=== PATIENT | female | born 1965 | race Caucasian/White ===

== ENCOUNTER 2020-11-24 12:19 | Emergency (ER) | payer MEDICAID, SELFPAY ==
[2020-11-24 12:45] VITALS: BP 117/73; PULSE 82; RESP 16; TEMP 36.9; O2SAT 97
--- NOTE | 2020-11-24 12:46 | ED_ITS ---
HPI - General Adult General Chief complaint: Psychiatric Symptoms Stated complaint: BEEHAVIORAL,NON MED COMPLIANT Time Seen by Provider: 11/24/20 12:21 Source: patient, family (Daughter) and EMS Mode of arrival: EMS Limitations: no limitations History of Present Illness HPI narrative: 55-year-old female with a past medical history of seizure disorder, anxiety, depression, hyperlipidemia, CVA with residual left-sided weakness and slurred speech, endocarditis with 2 several subsequent mitral valve replacements currently on Coumadin here after verbal altercation with family this morning. Patient tells me that she has some depression but denies any suicidal thoughts. No physical complaints. Called and spoke to the daughter who tells me that her mother moved in with her this week and after living in an apartment in [place]. They are working on transitioning over medical care here. Unfortunately, she has not been happy with the move and has been refusing to take all of her medications for the last several days. She is currently on methadone 100mg and got dosed Monday and Monday at a [facility] and [place]. This morning during the altercation the daughter witnessed her to take a pill bottle that had pink liquid in it of leftover methadone which she believes to be 100 mg and swallow it. Unfortun ately, she tells me the patient's stores her methadone in on marked pill bottles and the pill bottle was labeled with lorazepam. She tells me that there was no pills in it and there was only a pink liquid and she is sure that his methadone. She denies any expressed suicidal thoughts from her mom. Related Data Allergies Allergy/AdvReac Type Severity Reaction Status Date / Time No Known Allergies Allergy Verified 11/24/20 12:46 Review of Systems Review of Systems: Yes all other systems are reviewed and are negative Constitutional: Constitutional: Reports no additional constitutional complaints, Denies body ache(s), Denies chills, Denies fever(s), Denies headache(s) and Denies weakness Eyes: Eyes: Reports no additional eye complaints and Denies change in vision ENT: Reports system reviewed and no additional complaints, except as documented, Denies dizziness, Denies headache(s), Denies nasal congestion, Denies nasal discharge and Denies neck pain Cardiovascular: Cardiovascular: Reports no additional cardiovascular complaints, Denies chest pain, Denies leg edema and Denies dyspnea Respiratory: Respiratory: Reports no additional respiratory complaints, Denies cough and Denies dyspnea Gastrointestinal: Gastrointestinal: Reports no additional gastrointestinal complaints, Denies abdominal pain, Denies diarrhea, Denies nausea and Denies vomiting Genitourinary: Genitourinary: Reports no additional female genitourinary complaints and Denies urinary incontinence Musculoskeletal: Musculoskeletal: Reports no additional musculoskeletal complaints, Denies back pain, Denies arthralgias, Denies joint swelling, Denies neck pain, Denies numbness and Denies tingling Integumentary/Breasts: Skin/Breast: Reports system reviewed and no additional complaints, except as docu and Denies rash Neurologic: Reports system reviewed and no additional complaints, except as documented, Denies dizziness, Denies headache(s), Denies numbness, Denies tingling and Denies weakness Psychiatric: Psychiatric: Denies anxiety, Reports depression, Denies visual hallucinations, Denies hallucinations, Denies homicidal ideation and Denies suicidal ideation PMFSH Past Medical History Attestation statement: The following information was validated with the patient. Source: old records reviewed and nursing notes reviewed Medical History (Updated 11/24/20 @ 16:23 by Berta Griffith NP) Anxiety CVA (cerebral vascular accident) Depression Endocarditis High cholesterol Opioid use disorder Seizure Surgical History Mitral valve replaced Social History Social History Advance Directives: No Advance Directives Information Provided: No Patient : No Physical Exam Vital Signs: Vital Signs: Last Vital Signs Temp 97.8 F 11/24/20 13:41 Pulse 79 11/24/20 13:41 Resp 18 11/24/20 13:41 BP 117/90 H 11/24/20 13:41 Pulse Ox 95 11/24/20 13:41 Body Mass Index 24.0 Const: Other: Tearful, crying General: alert and awake Orientation/consciousness: patient oriented x3 Limitations: no limitations HENMT: Head: Yes normal to inspection Ears: hearing grossly normal bilaterally and TM's normal bilaterally General nose exam: Normal external nose present Face and sinus: Yes normal facial exam Mouth: Normal oral and palatal mucosa present Throat: Yes posterior oropharynx normal and Yes tonsils normal Eyes: General: appearance normal, both eyes and all related structures Neck: Neck: Yes normal visual inspection, Yes full ROM and Yes no lymphadenopathy Chest: Other: Chest deformity noted to the central chest with surgical scarring Chest palpation & inspection: normal inspection of the chest Resp: Effort & Inspection: normal respiratory effort Auscultation: clear to auscultation bilaterally Cardio: Rate: regular rate Rhythm: regular rhythm Peripheral pulses: Peripheral pulses 2+ throughout GI: Inspection: Yes normal to inspection Palpation (GI): Soft to palpation and nontender Auscultation: normal bowel sounds Back/Spine/Pelvis: Thoracic/Lumbar Spine: thoracic and lumbar spine normal to inspection Skin: General skin exam: no rashes or lesions noted Neuro: Other: Left-sided weakness at baseline. Slurred speech at baseline. General: patient oriented x3 Extrem: General: Yes normal to inspection, Yes no pedal edema and Yes no calf tenderness Psych: Other: Anxious, rambling, Course Course Course Narrative: 55-year-old female here after a verbal altercation with family. Concerned that patient is not taking her medications, labile moods, depressed. Patient has no explicit suicidal thoughts. Question ingestion of methadone this morning although was in a bottle marked lorazepam. Both family and patient tell me it was a pink liquid 100 mg of methadone and that the patient often places her methadone in a different containers. On arrival patient was alert and oriented. She has slurred speech and left- sided weakness at baseline from a stroke. She is very tearful, crying after the verbal altercation with her daughter this morning. Difficult to obtain much history from her so most of the history was obtained from the daughter Nery Mcguire [phone] with the patient's consent. Will check labs, EKG, drug screen and toxicology reports. Patient will need a care team evaluation 1430-Seen by Care team. No need for inpatient psych as patient is not suicidal. Will involve CM to collect collateral information and determine if additional needs are required. 1445-Refusing all care including labs, urine testing and EKG. Patient is alert and oriented x3 and not on a section 12 so at this point cannot force patient to have these tests done. 1645-Agreed to labs. lab show subtherapeutic INR. Otherwise unremarkable. Refused to provide urine sample and EKG. Case management spoke to family and offered services to assist medication management and methadone. However, this was declined by the daughter and the patient. Patient up and ambulatory independently to the bathroom. Alert and oriented x3. Informed patient of test results and plan for discharge home. Called and informed daughter with patient's permission and she was very tearful and crying although understood that we have no reason to keep her mom here in the emergency department. I did inform the patient of this and she tells me this is her home and she has a very difficult relationship with her daughter. She desires to be discharged. Medical Decision Making Medical Records Medical records reviewed: Yes I reviewed the patient's medical records. Lab Data Lab results reviewed: Yes I reviewed the patient's lab results. Result diagrams: 11/24/20 15:10 11/24/20 15:10 Labs: Lab Results 11/24/20 11/24/20 11/24/20 Range/Units 15:10 15:10 15:10 WBC 3.3 L (4.8-10.8) X10*3/uL RBC 4.69 (4.20-5.50) X10*6/uL Hgb 13.5 (12.0-16.0) g/dl Hct 41.3 (37-47) % MCV 88.1 (80-98) fL MCH 28.8 (27.0-33.0) pg MCHC 32.7 (31.0-35.0) g/dl RDW 13.9 (11.0-16.0) % Plt Count 172 (160-400) X10*3/uL MPV 10.9 (9.4-12.3) fL Immature Gran % (Auto) 0.3 (0.0-0.4) % Neut % (Auto) 55.1 (45-73) % Lymph % (Auto) 32.9 (20-40) % [place] % (Auto) 10.2 (2-11) % Eos % (Auto) 1.2 (0-4) % Baso % (Auto) 0.3 (0-2) % Lymph # (Auto) 1.1 L (1.2-4.9) X10*3/uL [place] # (Auto) 0.3 (0.1-1.2) X10*3/uL Eos # (Auto) 0.0 (0.0-0.4) X10*3/uL Baso # (Auto) 0.0 (0.0-0.2) X10*3/uL Abs Immat Gran (auto) 0.01 (0.00-0.03) X10*3/uL Absolute Neuts (auto) 1.8 L (2.0-8.3) X10*3/uL Absolute Nucleated RBC 0.000 (0.0-0.012) X10*3/uL Nucleated RBC % (auto) 0.0 (0.0-0.2) /100WBC PT 16.5 H (10.8-13.0) SEC INR 1.4 H (0.9-1.1) Sodium 142 (135-145) mmol/L Potassium 3.7 (3.3-5.1) mmol/L Chloride 107 (96-108) mmol/L Carbon Dioxide 28 (22-29) mmol/L Anion Gap 11 L (12-20) BUN 15 (9-16) mg/dL Creatinine 0.86 (0.5-1.4) mg/dL Estim Creat Clear Calc 65.3 Estimated GFR > 60 Random Glucose 72 (60-115) mg/dL Calcium 9.9 (8.4-10.2) mg/dL Total Bilirubin 0.7 (0.0-1.0) mg/dL Direct Bilirubin 0.2 (0.0-0.5) mg/dL AST 25 (5-31) U/L ALT 17 (0-31) U/L Alkaline Phosphatase 133 H (39-117) U/L Total Protein 8.1 H (6.5-8.0) g/dL Albumin 4.5 (3.5-5.0) g/dL Salicylates < 5.0 L (15-30) mg/dL Acetaminophen < 1 (<30) mcg/mL Ethyl Alcohol mg/dL 11/24/20 Range/Units 15:10 WBC (4.8-10.8) X10*3/uL RBC (4.20-5.50) X10*6/uL Hgb (12.0-16.0) g/dl Hct (37-47) % MCV (80-98) fL MCH (27.0-33.0) pg MCHC (31.0-35.0) g/dl RDW (11.0-16.0) % Plt Count (160-400) X10*3/uL MPV (9.4-12.3) fL Immature Gran % (Auto) (0.0-0.4) % Neut % (Auto) (45-73) % Lymph % (Auto) (20-40) % [place] % (Auto) (2-11) % Eos % (Auto) (0-4) % Baso % (Auto) (0-2) % Lymph # (Auto) (1.2-4.9) X10*3/uL [place] # (Auto) (0.1-1.2) X10*3/uL Eos # (Auto) (0.0-0.4) X10*3/uL Baso # (Auto) (0.0-0.2) X10*3/uL Abs Immat Gran (auto) (0.00-0.03) X10*3/uL Absolute Neuts (auto) (2.0-8.3) X10*3/uL Absolute Nucleated RBC (0.0-0.012) X10*3/uL Nucleated RBC % (auto) (0.0-0.2) /100WBC PT (10.8-13.0) SEC INR (0.9-1.1) Sodium (135-145) mmol/L Potassium (3.3-5.1) mmol/L Chloride (96-108) mmol/L Carbon Dioxide (22-29) mmol/L Anion Gap (12-20) BUN (9-16) mg/dL Creatinine (0.5-1.4) mg/dL Estim Creat Clear Calc Estimated GFR Random Glucose (60-115) mg/dL Calcium (8.4-10.2) mg/dL Total Bilirubin (0.0-1.0) mg/dL Direct Bilirubin (0.0-0.5) mg/dL AST (5-31) U/L ALT (0-31) U/L Alkaline Phosphatase (39-117) U/L Total Protein (6.5-8.0) g/dL Albumin (3.5-5.0) g/dL Salicylates (15-30) mg/dL Acetaminophen (<30) mcg/mL Ethyl Alcohol < 10 mg/dL Discharge Plan Discharge Clinical Impression: Adjustment disorder Qualifiers: Adjustment disorder type: unspecified type Qualified Code(s): F43.20 - Adjustment disorder, unspecified Patient Disposition: Home, Self-Care Instructions: Stress (ED) Additional Instructions: Your INR today was 1.4 You should be taking your coumadin in addition to all your labs but this is up to you. You have been seen by a manager social and manager of case management while you were here Referrals: Doug Watt MD [Primary Care Provider] - 2 days Interventions: ED Discharge Assessment Last Done: 11/24/20 18:33 Discharge Date/Time: 11/24/20 18:33
[2020-11-24 12:52] VITALS: BP 117/73; PULSE 82; RESP 16; TEMP 36.9; O2SAT 96; BMI 24.0
[2020-11-24 13:41] VITALS: BP 117/90; PULSE 79; RESP 18; TEMP 36.6; O2SAT 95
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
--- NOTE | 2020-11-24 15:06 | PC.NURSE ---
PT INITIALLY REFUSING BLOODOWRK. NOW AGREEBLE. DIFFICULT STICK. TECHS ATTEMPTING BLOODDRAW.
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
[2020-11-24 15:16] LABS: MANUAL DIFF FLAG NO
[2020-11-24 15:20] LABS: Basophils Percent Auto 0.3 % (0-2); Eosinophils Percent Auto 1.2 % (0-4); Hematocrit 41.3 % (37-47); Hemoglobin 13.5 g/dl (12.0-16.0); Imm Gran Abs Auto 0.01 X10*3/uL (0.00-0.03); Imm Gran Pct Auto 0.3 % (0.0-0.4); Lymphocytes Absolute Auto 1.1 X10*3/uL (1.2-4.9); Lymphocytes Percent Auto 32.9 % (20-40); Mean Corpuscular HGB Conc 32.7 g/dl (31.0-35.0); Mean Corpuscular Hemoglobin 28.8 pg (27.0-33.0); Mean Corpuscular Volume 88.1 fL (80-98); Mean Platelet Volume 10.9 fL (9.4-12.3); Monocytes Absolute Auto 0.3 X10*3/uL (0.1-1.2); Monocytes Percent Auto 10.2 % (2-11); Neutrophils Absolute Auto 1.8 X10*3/uL (2.0-8.3); Neutrophils Percent Auto 55.1 % (45-73); Platelet Count 172 X10*3/uL (160-400); Red Blood Count 4.69 X10*6/uL (4.20-5.50); Red Cell Distribution Width 13.9 % (11.0-16.0); White Blood Count 3.3 X10*3/uL (4.8-10.8)
[2020-11-24 15:23] LABS: INTERNATIONAL NORM RATIO 1.4 (0.9-1.1); Prothrombin Time 16.5 SEC (10.8-13.0)
--- NOTE | 2020-11-24 15:32 | PC.NURSE ---
PT READING IN HALLWAY STRETCHER, IN NAD AT THIS TIME, READING A BOOK. CALM & COOPERATIVE, SITTER AT BEDSIDE. DENIES SI/HI TO THIS OPHTHALMIC SURGEON. HAS BEEN EVALUATED BY CARE TEAM.
[2020-11-24 15:41] LABS: Ethanol < 10 mg/dL
[2020-11-24 15:44] LABS: Acetaminophen LAB < 1 mcg/mL (<30); Alanine Aminotransferase 17 U/L (0-31); Albumin Level 4.5 g/dL (3.5-5.0); Alkaline Phosphatase 133 U/L (39-117); Anion Gap 11 (12-20); Aspartate Amino Transferase 25 U/L (5-31); Bilirubin Direct 0.2 mg/dL (0.0-0.5); Bilirubin Total 0.7 mg/dL (0.0-1.0); Blood Urea Nitrogen 15 mg/dL (9-16); Calcium 9.9 mg/dL (8.4-10.2); Carbon Dioxide 28 mmol/L (22-29); Chloride 107 mmol/L (96-108); Creatinine Clr Calc Pharmacy 65.3; Estimated Glomerular Filt Rate > 60; Glucose Random 72 mg/dL (60-115); Potassium 3.7 mmol/L (3.3-5.1); Salicylate < 5.0 mg/dL (15-30); Sodium 142 mmol/L (135-145); Total Protein 8.1 g/dL (6.5-8.0)
--- NOTE | 2020-11-24 16:36 | MHC.CM.ED ---
Per Berta ZHANG, pt is ready for discharge. Berta called daughter to discuss d/c plan. Chair van transportation arranged. Pt aware. Pt A&Ox3. Verbalized no concerns about discharge plan. CM to follow for d/c needs.
--- NOTE | 2020-11-24 18:26 | MHC.CM.ED ---
CM spoke with pt. Pt states that she believes her daughter will let her into the apartment. Pt tells CM that she gives her daughter money for rent. CM gave pt listing of primary care providers and specialists at [facility] [place] [place]. Encouraged pt to call for PCP appointment. Pt admits to her and daughter not getting along, but feels safe to return. Ambulance arrived for transport. Concerned if daughter aware that pt is returning. Explained to CM that if daughter refuses to allow pt into apartment, they will return her to the ED. Explained to ambulance crew that LEATHA Hampton spoke with patients daughter and that she is aware that her mother will return home. CM received a call from Amarilis Nursing Night Supervisor regarding pt daughter calling her. Full report given to nursing mold shop supervisor and to Ariana Nickerson. Pt discharged to return home. CM will follow for d/c needs.
== END 2020-11-24 18:33 | disposition home or self-care (01) ==
PROVIDERS: Nurse Practitioner Family; Emergency Provider Emergency Medicine; PCP Internal Medicine
DX: F43.20 Adjustment disorder, unspecified (principal); F41.9 Anxiety disorder, unspecified; Z86.73 Personal history of transient ischemic attack (TIA), and cerebral infarction without residual deficits; F32.9 Major depressive disorder, single episode, unspecified; F11.20 Opioid dependence, uncomplicated
CPT/HCPCS: 36415; 80048; 80076; 80143; 80179; 82077; 85025; 85610; 99284; 99285

== ENCOUNTER 2020-11-24 23:29 | Emergency (ER) | payer MEDICAID, SELFPAY ==
[2020-11-24 23:58] VITALS: BP 128/82; BP 99/61; PULSE 107; PULSE 111; RESP 16; TEMP 37; O2SAT 95; O2SAT 96; BMI 30.9
--- NOTE | 2020-11-25 01:08 | ED_ITS ---
HPI - General Adult General Chief complaint: General Medical Stated complaint: withdrawls Time Seen by Provider: 11/25/20 01:08 Source: patient Mode of arrival: EMS History of Present Illness HPI narrative: THIS IS A 55-YEAR-OLD FEMALE WHO WAS SEEN EARLIER IN THE ER AND DISCHARGED AND NOW STATES THAT SHE IS IN WITHDRAWAL BUT WAS NOT TAKING HER MEDICATIONS. SHE INITIALLY STATED SHE DID NOT RECEIVE HER METHADONE, BUT THEN SAID THAT SHE TOOK METHADONE WELL HER XANAX PRIOR TO COMING IN. PATIENT THEN ENDORSES THAT SHE ATE TAKING HIM ORTHOPEDIC SHOE FITTER AND THEN BECAME NAUSEOUS AND WAS VOMITING. Related Data Allergies Allergy/AdvReac Type Severity Reaction Status Date / Time No Known Allergies Allergy Verified 11/24/20 12:46 Review of Systems Review of Systems: Pertinent positives and negatives as stated in HPI 10 point review of systems is otherwise negative. PMFSH Past Medical History Source: nursing notes reviewed Medical History Anxiety CVA (cerebral vascular accident) Depression Endocarditis High cholesterol Opioid use disorder Seizure Surgical History Mitral valve replaced Social History Social History Alcohol intake: unknown Patient Tobacco Use Status: Former Tobacco user Use of substances other than those prescribed or required for medical reasons: Yes Substance Use Type: Heroin Any prior treatment program specific to substance use: Yes Advance Directives: No Advance Directives Information Provided: No Patient : No Physical Exam Vital Signs: Vital Signs: Last Vital Signs Temp 98.6 F 11/24/20 23:58 Pulse 107 H 11/24/20 23:58 Resp 16 11/24/20 23:58 BP 99/61 11/24/20 23:58 Pulse Ox 96 11/24/20 23:58 Body Mass Index 30.9 VITAL SIGNS: Reviewed. GENERAL: Well developed, well nourished, in no acute distress. HEAD: Normocephalic/atraumatic EYES: PERRLA, EOMI OROPHARYNX: no oral lesions noted, posterior pharynx clear dry mucosa NECK: Supple, no adenopathy LUNGS: Normal breath sounds. No adventitious sounds or accessory muscle use. SpO2<96> CARDIOVASCULAR: Regular rate and rhythm without noted murmurs ABDOMEN: Soft, non-tender, non-distended with bowel sounds. MUSCULOSKELETAL: No tenderness, deformities, or effusions noted on gross inspection. EXTREMITIES: No cyanosis, clubbing or edema. SKIN: Inspection of the skin reveals no rashes, ulcerations, jaundice, pallor, or petechiae. NEUROLOGIC: Drowsy and oriented x 4. Strength and sensation to light touch were grossly intact x 4. Course Course Course Narrative: This is a 55-year-old female with history and clinical presentation consistent with methadone/Xanax use. Patient is refusing all labs and interventions and is now tolerating food and water without difficulty. She will be discharged home in stable condition. Discharge Plan Discharge Clinical Impression: Food poisoning Patient Disposition: Home, Self-Care Instructions: Food Poisoning (ED) Additional Instructions: Resume all home medications as prescribed. Return for acute worsening of symptoms. Referrals: Doug Watt MD [Primary Care Provider] - 2 days
[2020-11-25 02:00] VITALS: BP 99/61; PULSE 107; RESP 16; O2SAT 96
[2020-11-25] MEDS: 0.9 % Sodium Chloride 1,000 ML 999 ML IV (02:50)
[2020-11-25 04:00] VITALS: BP 105/68; PULSE 103; RESP 16; O2SAT 96
[2020-11-25 06:00] VITALS: BP 98/56; PULSE 75; RESP 15; O2SAT 96
--- NOTE | 2020-11-25 08:44 | PC.NURSE ---
Patient leaving with [facility] going home. Pt is alert and in no distress. No vomiting since arrival in ER
== END 2020-11-25 08:45 | disposition left against medical advice (07) ==
PROVIDERS: Emergency Provider Student in an Organized Health Care Education/Training Program; PCP Internal Medicine
DX: A05.9 Bacterial foodborne intoxication, unspecified (principal); F11.20 Opioid dependence, uncomplicated; Z86.73 Personal history of transient ischemic attack (TIA), and cerebral infarction without residual deficits
CPT/HCPCS: 96360; 96361; 99284

== ENCOUNTER 2020-12-24 12:25 | Outpatient (REF) | payer MEDICAID, SELFPAY ==
[2020-12-24 13:45] LABS: INTERNATIONAL NORM RATIO 2.2 (0.9-1.1); Prothrombin Time 25.9 SEC (9.9-13.0)
== END 2020-12-24 12:26 | disposition home or self-care (01) ==
LOC: HO.LAB 12:25
PROVIDERS: PCP Internal Medicine; Visit Provider Nurse Practitioner Adult Health
DX: Z98.890 Other specified postprocedural states (principal); Z79.01 Long term (current) use of anticoagulants
CPT/HCPCS: 36415; 85610

== ENCOUNTER 2021-03-20 16:11 | Inpatient (IN) | payer MEDICAID, SELFPAY ==
--- NOTE | 2021-03-20 | ECG_ITS ---
Test Reason : SEIZURE' Blood Pressure : / mmHG Vent. Rate : 098 BPM Atrial Rate : 098 BPM P-R Int : 150 ms QRS Dur : 094 ms QT Int : 384 ms P-R-T Axes : 044 -11 000 degrees QTc Int : 490 ms Normal sinus rhythm Incomplete right bundle branch block Nonspecific ST abnormality Prolonged QT Abnormal ECG No previous ECGs available Referred By: Generic ED Physician Electronically Signed By:CALLIE PETERSON
--- NOTE | ~2021-03-20 | MR_ITS ---
MRI OF THE BRAIN WITHOUT IV CONTRAST INDICATION: New onset seizures. COMPARISON: Head CT 03/21/2021. TECHNIQUE: Multiplanar multisequence MR imaging of the brain was obtained without IV contrast. FINDINGS: There is no hydrocephalus, extra-axial surface collection, or herniation. There is chronic encephalomalacia and gliosis within the right frontoparietal lobe and there is a chronic infarct within the right occipital lobe. No signal abnormality within the mesial temporal lobes. The major flow voids at the skull base are preserved. There is no acute infarct on diffusion-weighted imaging. There is no intracranial hemorrhage on the gradient recalled echo acquisition. The midline structures are normal. The cerebellar tonsils are normally positioned. The cerebellum and brainstem are normal. The craniocervical junction is normal. Osseous marrow signal intensity is homogenous. The visualized soft tissues are unremarkable. MR/MR head/brain wo con IMPRESSION: - There are no acute intracranial findings. No acute infarcts. - There is chronic encephalomalacia and gliosis within the right frontoparietal lobe and there is a chronic infarct within the right occipital lobe.
--- NOTE | ~2021-03-20 | CT_ITS ---
EXAMINATION: NONCONTRAST HEAD CT NONCONTRAST CERVICAL SPINE CT INDICATION INFORMATION: Altered mental status. Question fracture. COMPARISON: 03/20/2021 TECHNIQUE: Separate noncontrast CT examinations of the head and cervical spine were performed. Coronal and sagittal images were created for each examination at the technologist workstation. This CT examination was performed using dose optimization techniques as appropriate, variously including the following: *Automated exposure control *Adjustment of mA and/or kV according to patient size (this includes techniques or standardized protocols for targeted exams where dose is matched to indication/reason for exam; i.e. extremities or head) *Use of iterative reconstruction technique DLP: 1226 mGy-cm FINDINGS: Head: Chronic encephalomalacia of the right MCA territory is again noted. There is no evidence of acute intracranial hemorrhage or territorial infarction. No abnormal mass effect or midline shift is seen. Armando to white matter differentiation is otherwise well preserved. No extra-axial fluid collections are identified. No hydrocephalus. No significant volume loss. No acute osseous or soft tissue abnormality. The mastoid air cells and visualized portions of the paranasal sinuses are well aerated. Cervical spine: There is anatomic alignment of the vertebral bodies and posterior elements. The atlantoaxial and atlantooccipital articulations are intact. Vertebral body heights are maintained. There is multilevel intervertebral disc space narrowing with endplate osteophyte formation and facet arthropathy. No evidence of acute fracture. No prevertebral soft tissue swelling. Visualized portions of the lung apices are unremarkable. The thyroid gland is somewhat heterogeneous. CT/CT cervical spine wo con IMPRESSION: 1. No acute intracranial finding. No change from recent prior. 2. No acute fracture or malalignment of the cervical spine. Mild degenerative change.
--- NOTE | ~2021-03-20 | CT_ITS ---
EXAMINATION: CT CHEST WITHOUT CONTRAST CT ABDOMEN AND PELVIS WITHOUT CONTRAST CLINICAL INFORMATION: Cough. Abdominal pain. COMPARISON: Chest radiograph from 03/20/2021 TECHNIQUE: Multidetector volumetric imaging was performed through the chest, abdomen and pelvis without contrast. Sagittal and coronal reformatted images were obtained on the technologist's workstation. Axial MIP volume rendering provided. This CT examination was performed using dose optimization techniques as appropriate, variously including the following: *Automated exposure control *Adjustment of mA and/or kV according to patient size (this includes techniques or standardized protocols for targeted exams where dose is matched to indication/reason for exam; i.e. extremities or head) *Use of iterative reconstruction technique DLP: 1372 mGy-cm. FINDINGS: CHEST: Lungs: The central airways are patent. Minimal groundglass opacity in the lower lungs bilaterally. No pleural effusion or pneumothorax. No dense consolidation. Mediastinum: The heart is prominent. Cardiac valvular hardware. There is no pericardial effusion. Central vascular structures are unremarkable. No hilar or mediastinal lymphadenopathy. Chest Wall/Axilla: No lymphadenopathy. No chest wall mass. ABDOMEN/PELVIS: Motion limits evaluation. Liver, Gallbladder, Biliary Tree: The liver is normal in size, shape, and attenuation. No focal hepatic lesion or intrahepatic biliary ductal dilatation is present. The gallbladder is normally distended with no evidence of radiopaque gallstones, gallbladder wall thickening, or pericholecystic inflammatory changes. The common bile duct appears prominent measuring 0.8 cm. No ductal filling defects seen. Pancreas: Unremarkable. Spleen: Unremarkable. Adrenal Glands: Unremarkable. Kidneys and Ureters: The kidneys are normal in size, shape, and attenuation. No hydronephrosis, hydroureter or calculi seen. No perinephric stranding. Bladder: Unremarkable. Gastrointestinal Tract: The stomach and small bowel appear unremarkable. No dilated loops of bowel or evidence of obstruction. No diverticulosis. No colonic wall thickening or adjacent inflammatory changes. No free air or free fluid. The appendix is unremarkable. Abdominal Wall: There is a fat-containing ventral abdominal wall hernia superiorly. Abdominal wall defect measures 3.9 cm transverse by 6.5 cm CC. Lymphovascular Structures: Lymph nodes: Normal. Vascular: Normal caliber aorta with mild atherosclerotic calcification. Retroaortic left renal vein. Pelvic Viscera: The uterus and adnexa are unremarkable. OSSEOUS STRUCTURES: No acute or suspicious osseous abnormality. Degenerative changes noted throughout the spine. Mild degenerative changes in the hips. CT/CT abdomen pelvis wo con IMPRESSION: 1. Groundglass opacities noted at both lung bases could be infectious or inflammatory. No dense consolidation. 2. Prominent appearance of the common bile duct without ductal filling defect. No inflammatory changes of the abdomen or pelvis. 3. Prominent fat-containing ventral abdominal wall hernia.
--- NOTE | ~2021-03-20 | CT_ITS ---
EXAMINATION: CT OF THE HEAD WITHOUT CONTRAST CLINICAL INFORMATION: Trauma assess for bleed. COMPARISON: None. This CT examination was performed using dose optimization techniques as appropriate, variously including the following: *Automated exposure control *Adjustment of mA and/or kV according to patient size (this includes techniques or standardized protocols for targeted exams where dose is matched to indication/reason for exam; i.e. extremities or head) *Use of iterative reconstruction technique DLP: 770 mGy-cm TECHNIQUE: Noncontrast CT scan of the head was obtained from the base of the skull to the vertex. FINDINGS: Cephalization of favoring old ischemic insult right perisylvian location. There is no evidence for any findings acute findings. The ventricles and cisterns are normal in size, shape and configuration. There are no extra-axial surface collections or evidence of hemorrhage. Midline structures are central. The anaya/white differentiation is maintained. The orbits appear normal bilaterally. The paranasal sinuses are clear. No fractures are seen. CT/CT head/brain wo con IMPRESSION: No acute intracranial abnormality. Chest one view: HISTORY: Trauma. Heart and mediastinal normal. No mediastinal widening parenchymal disease or pleural abnormality. No ectopic air. No gross rib fracture. IMPRESSION: No acute chest pathology.
[2021-03-20 16:22] VITALS: BP 122/81; BP 134/78; PULSE 81; PULSE 97; RESP 13; TEMP 36.9; O2SAT 94; O2SAT 96; BMI 31.7
--- NOTE | 2021-03-20 16:35 | PC.NURSE ---
[facility] [phone]
--- NOTE | 2021-03-20 16:41 | PC.NURSE ---
spoke with pts daughter. she reported whatever happened was unwitnessed but that the pt became disoriented, confused, her pupils dilated and she was unable to follow directions . 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 daughter is worried her mom is also sick with mold toxicity and would like her tested for that. reports they just moved and have been unable to get pts INR tested in over 2 weeks as pt is on Coumadin. daughter poor historian and unable to provide significant information regarding pts medical hx and medications.
--- NOTE | 2021-03-20 16:46 | ED.SEIZURE ---
HPI - Seizure General Chief Complaint: Seizure Stated Complaint: seizure Time Seen by Provider: 03/20/21 16:44 History of Present Illness HPI Narrative: Patient is 56 years old with a history of seizures. History of polysubstance abuse. History of endocarditis status post mechanical valve replacement. Status post complication. Patient had the repeat valve replacement many years ago currently not using IV drugs. Has a history of seizures. Family report a possible seizure episode. She is on Coumadin. There was positive postictal state patient's eye rolled back. Subsequently recover nicely. No coughing or congestion or upper respiratory symptoms. No diaphoresis. Patient is from home. Patient denies having any chest pain. Denies having any new focal weakness. Patient unsure if she hit her head. Has no pain. Denies any tongue bite. Denies any urinary incontinence. MD complaint: seizure Related Data Allergies Allergy/AdvReac Type Severity Reaction Status Date / Time No Known Allergies Allergy Verified 11/24/20 12:46 Review of Systems Review of Systems: No fever no chills no chest pain or shortness of breath No diaphoresis All systems reviewed otherwise negative [facility] Past Medical History Medical History Anxiety CVA (cerebral vascular accident) Depression Endocarditis High cholesterol Opioid use disorder Seizure Surgical History Mitral valve replaced Social History Social History Alcohol intake: never Patient Tobacco Use Status: Current someday Tobacco user Use of substances other than those prescribed or required for medical reasons: No Substance Use Type: Heroin Advance Directives: No Advance Directives Information Provided: No Physical Exam Vital Signs: Vital Signs: Last Vital Signs Temp 98.5 F 03/20/21 17:24 Pulse 75 03/20/21 19:17 Resp 13 03/20/21 19:17 BP 106/70 03/20/21 17:24 Pulse Ox 98 03/20/21 19:17 Body Mass Index 31.7 Appearance: Alert. Oriented X3. No acute distress. Eyes: Pupils equal, round and reactive to light. ENT: Pharynx normal. Neck: Normal inspection. Neck supple. No lymph nodes noted. No crepitus CVS: Normal heart rate and rhythm. Pulses normal. Normal S1 and S2 Respiratory: No respiratory distress. Breath sounds normal. No Wheezing. No rales Abdomen: Soft and nontender. No rigidity. No distention. good BS x4 Skin: Skin warm and dry. Normal skin color. Normal skin turgor. Extremities: No lower extremity edema. Neurovascular intact to all extremities. No Lacerations. No Rash Neuro: Oriented X 3. No motor deficit. No sensory deficit. Moving all extermities. No slurred speech MDM - Seizure MDM Narrative Medical decision making narrative: Patient's symptoms likely consistent with breakthrough seizure. Her electrolytes are unremarkable. CT scan of the head showed no evidence of bleeding. No fracture. Patient's x-ray showed no pneumonia pneumothorax. Will discharge patient home as patient most likely has a breakthrough seizure. Her INR is elevated at 2.9. This is therapeutic as patient has a mechanical heart valve. Patient's EKG showed a sinus pattern heart rate is 100 DE QRS QT within normal limits is no acute ST segment elevation. Currently in stable condition with discharge home. The frequency of seizure has not improved increased. Patient is compliant with medication. Will discharge patient home. Differential Diagnosis Differential diagnosis: Likely generalized seizure Medical Records Attestation: I reviewed the patient's medical records. Lab Data Attestation: I reviewed the patient's lab results. Result diagrams: 03/20/21 17:13 03/20/21 17:53 Labs: Lab Results 03/20/21 03/20/21 03/20/21 Range/Units 17:02 17:06 17:13 WBC 4.3 L (4.8-10.8) X10*3/uL RBC 4.70 (4.20-5.50) X10*6/uL Hgb 13.8 (12.0-16.0) g/dl Hct 41.2 (37-47) % MCV 87.7 (80-98) fL MCH 29.4 (27.0-33.0) pg MCHC 33.5 (31.0-35.0) g/dl RDW 14.7 (11.0-16.0) % Plt Count 214 (160-400) X10*3/uL MPV 10.3 (9.4-12.3) fL Immature Gran % (Auto) 0.2 (0.0-0.4) % Neut % (Auto) 75.6 H (45-73) % Lymph % (Auto) 16.4 L (20-40) % Hickory % (Auto) 6.7 (2-11) % Eos % (Auto) 0.9 (0-4) % Baso % (Auto) 0.2 (0-2) % Lymph # (Auto) 0.7 L (1.2-4.9) X10*3/uL Hick[place] # (Auto) 0.3 (0.1-1.2) X10*3/uL Eos # (Auto) 0.0 (0.0-0.4) X10*3/uL Baso # (Auto) 0.0 (0.0-0.2) X10*3/uL Abs Immat Gran (auto) 0.01 (0.00-0.03) X10*3/uL Absolute Neuts (auto) 3.3 (2.0-8.3) X10*3/uL Absolute Nucleated RBC 0.000 (0.0-0.012) X10*3/uL Nucleated RBC % (auto) 0.0 (0.0-0.2) /100WBC PT (9.9-13.0) SEC INR (0.9-1.1) Sodium (135-145) mmol/L Potassium (3.3-5.1) mmol/L Chloride (96-108) mmol/L Carbon Dioxide (22-29) mmol/L Anion Gap (12-20) BUN (9-16) mg/dL Creatinine (0.5-1.4) mg/dL Estim Creat Clear Calc Estimated GFR POC Glucose 99 (60-115) mg/dL Random Glucose (60-115) mg/dL Calcium (8.4-10.2) mg/dL COVID-19 (CLARITZA) Negative (Negative) COVID-19 Clin Com See Note 03/20/21 03/20/21 Range/Units 17:13 17:53 WBC (4.8-10.8) X10*3/uL RBC (4.20-5.50) X10*6/uL Hgb (12.0-16.0) g/dl Hct (37-47) % MCV (80-98) fL MCH (27.0-33.0) pg MCHC (31.0-35.0) g/dl RDW (11.0-16.0) % Plt Count (160-400) X10*3/uL MPV (9.4-12.3) fL Immature Gran % (Auto) (0.0-0.4) % Neut % (Auto) (45-73) % Lymph % (Auto) (20-40) % Hickory % (Auto) (2-11) % Eos % (Auto) (0-4) % Baso % (Auto) (0-2) % Lymph # (Auto) (1.2-4.9) X10*3/uL Hick[place] # (Auto) (0.1-1.2) X10*3/uL Eos # (Auto) (0.0-0.4) X10*3/uL Baso # (Auto) (0.0-0.2) X10*3/uL Abs Immat Gran (auto) (0.00-0.03) X10*3/uL Absolute Neuts (auto) (2.0-8.3) X10*3/uL Absolute Nucleated RBC (0.0-0.012) X10*3/uL Nucleated RBC % (auto) (0.0-0.2) /100WBC PT 33.2 H D (9.9-13.0) SEC INR 2.9 H (0.9-1.1) Sodium 142 (135-145) mmol/L Potassium 4.5 D (3.3-5.1) mmol/L Chloride 109 H (96-108) mmol/L Carbon Dioxide 25 (22-29) mmol/L Anion Gap 13 (12-20) BUN 20 H (9-16) mg/dL Creatinine 0.91 (0.5-1.4) mg/dL Estim Creat Clear Calc 74.0 Estimated GFR > 60 POC Glucose (60-115) mg/dL Random Glucose 96 (60-115) mg/dL Calcium 9.1 D (8.4-10.2) mg/dL COVID-19 (CLARITZA) (Negative) COVID-19 Clin Com Discharge Plan Discharge Clinical Impression: Epileptic seizure Patient Disposition: Home, Self-Care Instructions: Epilepsy (ED) Referrals: Physician,Nonstaff [Primary Care Provider] - 2 days (Please follow-up with your neurologist on an outpatient basis. Seizure precaution. No driving no activity cell put you in danger have a seizure at that time.)
[2021-03-20 17:05] LABS: Glucose, Whole Blood 99 mg/dL (60-115)
[2021-03-20 17:19] LABS: MANUAL DIFF FLAG NO
[2021-03-20 17:21] LABS: Basophils Percent Auto 0.2 % (0-2); Eosinophils Percent Auto 0.9 % (0-4); Hematocrit 41.2 % (37-47); Hemoglobin 13.8 g/dl (12.0-16.0); Imm Gran Abs Auto 0.01 X10*3/uL (0.00-0.03); Imm Gran Pct Auto 0.2 % (0.0-0.4); Lymphocytes Absolute Auto 0.7 X10*3/uL (1.2-4.9); Lymphocytes Percent Auto 16.4 % (20-40); Mean Corpuscular HGB Conc 33.5 g/dl (31.0-35.0); Mean Corpuscular Hemoglobin 29.4 pg (27.0-33.0); Mean Corpuscular Volume 87.7 fL (80-98); Mean Platelet Volume 10.3 fL (9.4-12.3); Monocytes Absolute Auto 0.3 X10*3/uL (0.1-1.2); Monocytes Percent Auto 6.7 % (2-11); Neutrophils Absolute Auto 3.3 X10*3/uL (2.0-8.3); Neutrophils Percent Auto 75.6 % (45-73); Platelet Count 214 X10*3/uL (160-400); Red Cell Distribution Width 14.7 % (11.0-16.0); White Blood Count 4.3 X10*3/uL (4.8-10.8)
[2021-03-20 17:24] VITALS: BP 106/70; PULSE 84; RESP 14; TEMP 36.9; O2SAT 93
[2021-03-20 17:27] LABS: INTERNATIONAL NORM RATIO 2.9 (0.9-1.1); Prothrombin Time 33.2 SEC (9.9-13.0)
[2021-03-20 17:35] LABS: COVID-19 Test Negative (Negative)
[2021-03-20 18:15] LABS: Anion Gap 13 (12-20); Blood Urea Nitrogen 20 mg/dL (9-16); Calcium 9.1 mg/dL (8.4-10.2); Carbon Dioxide 25 mmol/L (22-29); Chloride 109 mmol/L (96-108); Estimated Glomerular Filt Rate > 60; Glucose Random 96 mg/dL (60-115); Potassium 4.5 mmol/L (3.3-5.1); Sodium 142 mmol/L (135-145)
[2021-03-20 19:17] VITALS: PULSE 75; RESP 13; O2SAT 98
[2021-03-20 19:46] LABS: Appearance Urine HAZY; Color Urine YELLOW; Glucose Urine UA NEG (NEG); Leukocyte Esterase Urine 1+ (NEG); Nitrite Urine NEG (NEG); Specific Gravity - Urine 1.015 (1.005-1.025); UACC Culture Trigger YES; Urine Blood NEG (NEG); Urine Ketones NEG (NEG); Urine Protein TRACE MG/DL (NEG-TRACE)
[2021-03-20 19:58] LABS: Amorphous Sediment Urine 1+ /LPF; Bacteria Urine 2+ /LPF; Mucus Urine 2+ /LPF; RBC Urine 0-2 /HPF (0); Squamous Epithelial Cell Urine 1+ /LPF
--- NOTE | 2021-03-20 20:07 | PC.NURSE ---
spoke with pt daughter - she reports she is unable to cigar packer and picker the pt. encouraged to call Iris/fernando/adela pts daughter reported that she can't deal with this she has bronchitis , informed pt will need to be d/c to the waiting room where she will await a ride. pts daughter hung up on t/w.
--- NOTE | 2021-03-20 20:38 | PC.NURSE ---
3 calls made to the daughter who continued to inform this rn that she has no way of picking up her mom. daughter was on hold with [employer]. pt ambulated independently, was alert and oriented. took over 45 mins to d/c the pt she was refusing to leave. additional staff members needed to assist t/w to get pt into the wheelchair after pt refusing and being informed that security would be called to assist. pt immediately jumped out of bed and stood, ambulated herself to the wheelchair. daughter informed t/w that she would be calling the supervisor print line to complain. medical charge entry specialist notified. pt transferred safely to the [facility],, awaiting transportation . .
--- NOTE | 2021-03-20 20:42 | PC.NURSE ---
ATTEMPTING TO FIND PATIENT TRANSPORTATION HOME. PATIENT ABLE TO STAND AND IS NOT WHEELCHAIR BOUND AT HOME ACCORDING TO HER. SEVERAL CALLS FOR A TAXI, WITH NO ANSWER AT THE COMPANY. FAMILY WAS CONTACTED TO TRY TO GET PATIENT TRANSPORTATION HOME, EITHER A LYFT OR UBER; FAMILY STATED THEY WERE NOT RUNNING WELL. BUSES ARE NOT RUNNING AT THIS TIME, AND THERE IS NO SHUTTLE VAN RUNNING WITH THE HOSPITAL AT THIS TIME TOO. PATIENT OFFERED A WHEELCHAIR VAN HOME, SINCE PATIENT REPORTS SHE IS NOT WHEELCHAIR BOUND, IT POSSIBLY WOULD NOT BE COVERED UNDER INSURANCE. PATIENT MADE AWARE OF THIS AND INFORMED THE GALLOWAY IF IT WAS NOT COVER. PATIENT WAS NOT AGREEABLE TO THIS SOLUTION AND WOULD NOT SIGN THE FORM FOR THE VAN TRANSPORT AGREEMENT. WILL ATTEMPT TO SEE IF PATIENT CAN QUALIFY FOR A WHEELCHAIR VAN. SLEEPING CAR CONDUCTOR NII HAS BEEN MADE AWARE OF THE ISSUE AND WILL ATTEMPT TO CONTACT THE FAMILY TO SEE IF THEY WILL BE WILLING TO AGREE TO THE TRANSPORT AGREEMENT.
--- NOTE | 2021-03-20 21:10 | PC.NURSE ---
LOOKING AT THE DISTANCE FROM THE EMERGENCY DEPARTMENT TO THE PATIENTS HOME. PATIENT STILL REPORTING THAT SHE DOES NOT WANT TO PAY FOR TRANSPORT. PATIENT ASKING USE TO CALL HER DAUGHTER AGAIN FOR A RIDE HOME. PLAN IS TO GIVE THE PHONE TO THE PATIENT TO TALK TO THE DAUGHTER DIRECTLY.
--- NOTE | 2021-03-20 21:43 | PC.NURSE ---
FOLLOW UP CALL WITH DAUGHTER STILL ATTEMPTING TO GET TRANSPORT BACK HOME. CALLED [facility] WHO SAYS UNLESS THE [facility]ALTH CARE [facility] IS INVOKED THEY CAN'T TAKE THE PATIENT IF THE PATIENT HERSELF WAS UNWILLING TO SIGN, TALKING WITH THEM ABOUT QUALIFYING PRE CONDITIONS AND PATIENT HX OF CVA AND HIGH FALL RISK AND SEIZURE HX SHOULD QUALIFY HER FOR A WHEELCHAIR VAN BACK. ALSO SPEAKING WITH DAUGHTER REGARDING HOW PATIENT GETS TO DOCTORS APPOINTMENTS STATING SHE USES A WHEELCHAIR VAN FOR TRANSPORTATION. DAUGHTER DOES NOT HAVE A VEHICLE AND HER MOTHER MUST BE CONFUSED ON THE SITUATION. ABLE TO TALK WITH PATIENT UNABLE TO GIVE THE ADDRESS SHE LIVES AT CONFIRMING WITH DAUGHTER. ATTEMPTING TO GET CONFIRMATION THAT THE WHEELCHAIR VAN ACCEPTED AND WILL TAKE THE PATIENT HOME
--- NOTE | 2021-03-20 23:00 | PC.NURSE ---
PATIENT IS UP AND AMBULATING THROUGHOUT THE NURSING STATION. STATING SHE NEEDS TO GO THE BATHROOM. PATIENT ESCORTED TO THE WHEELCHAIR AND THEN TO THE BATHROOM. THEN REFUSING TO GET UP AND REFUSING TO STAND TO GET ONTO THE TOILET, ASKING TO LEAVE THE RESTROOM. PATIENT THEN UP AND STANDING AGAIN IN THE NURSES STATION SCREAMING ASKING TO GO THE THE RESTROOM. SIMILAR EPISODE AND ASKING TO LEAVE FROM THE RESTROOM AGAIN. PATIENT NOW SITTING IN THE WHEELCHAIR AND ASKING TO GO THE BATHROOM. PATIENT BROUGHT BACK TO THE BATHROOM FOR A 4TH TIME, STOOD AND PIVOT TO THE TOILET THEN WALKED BACK OVER THE WHEELCHAIR WITHOUT USING THE RESTROOM.
--- NOTE | 2021-03-20 23:29 | PC.NURSE ---
DAUGHTER CALLING TO SEE THE STATUS OF THE EMS WHEELCHAIR VAN TO BRING THE PATIENT HOME. FAMILY MEMBER VOICING HER CONCERNS, STATING THAT USUALLY HER MOTHER IS CONFUSED FOR DAYS AFTER HAVING A SEIZURE AND SHE SHOULD NOT BE COMING HOME FOR THE DAUGHTER TO CARE FOR HER. USUALLY SHE IS ADMITTED, SOMETHING IS WRONG AND NO ONE IS LISTENING TO ME . DAUGHTER STATING THAT I AM GOING TO CALL HER DOCTOR AT [facility] AND THEY WILL ADMIT HER THERE IF YOU CAN'T FIND ANYTHING . STATING THAT SHE IS FINISHING GETTING MOVED OUT OF THE APARTMENT TOMORROW AND NEEDS TO REST. TELLING THE DAUGHTER TO GET SOME REST BUT LEAVE HER PHONE ON AND THIS RN WILL CONTACT HER ONCE THE TRANSPORT WAS HERE, UNSURE OF A TIME LINE FOR TRANSPORT. DAUGHTER IS UPSET STATING SOMETHING IS WRONG WITH HER MOTHER AND THE CONFUSION IS NOT HER BASELINE, TALKING TO THE DAUGHTER ABOUT THE RESULTS, THE CT SCAN OF HER HEAD SHOWS NO ACUTE CHANGES, CHEST X-RAY HAS NO ABNORMALITIES NOTED. BLOOD WORK WAS WITHIN BASELINE FOR PATIENT. EXPLAINING THAT EVERYTHING WAS REVIEWED BY THE PROVIDER PRIOR TO PATIENT BEING DISCHARGED. PATIENT ABLE TO VERBALIZE NEEDS, WALKING AROUND THE UNIT. AWAITING TRANSPORTATION BACK HOME. FAMILY AND PATIENT AWARE THAT TRANSPORT WILL TAKE TIME.
[2021-03-21] VITALS (9 sets, daily range): BP systolic 107–143; BP diastolic 51–82; PULSE 90–101; RESP 17–21; TEMP 36.1–36.9; O2SAT 93–98
--- NOTE | 2021-03-21 00:41 | PC.NURSE ---
PATIENT ABLE TO USE A BED ASHLEY FOR TOILETING, PATIENT CALLING OUT MOVING ON THE STRETCHER, STATING. I AM COLD , GIVEN A WARM BLANKET. BREATHING IS EVEN AND UNLABORED. DISCUSSING PATIENT WITH MD CROWLEY AGAIN ABOUT THE CONFUSION THAT IS NOT BASELINE ACCORDING TO DAUGHTER. DAUGHTER DID SAY IN AN EARLIER CONVERSATION THAT PATIENT IS CONFUSED AND WANTED TO KNOW ABOUT INVOKING A HEALTH CARE [facility] BECAUSE SHE CLAIMS THAT PATIENT IS NOT ORIENTED AND WILL STATE THAT THE PATIENT LIVES IN [place]. ASKED DAUGHTER IF SHE WOULD NORMALLY GIVE A WRONG LOCATION FOR WHERE SHE LIVES INCLUDING THE STATE. DAUGHTER RESPONDED SOMETIMES . DAUGHTER IS VAGUE WITH ANSWERS THROUGH THE MULTIPLE CONVERSATION THE DAUGHTER SEEMS VERY OVERWHELMED CARING FOR HER MOTHER.
--- NOTE | 2021-03-21 01:07 | PC.NURSE ---
PATIENT IS ALERT, RESPONDS TO NAME. PUPILS ARE DILATED BUT EQUAL AND REACTIVE TO LIGHT. MOVING EXTREMITIES, MOVING PATIENTS LEGS ON THE STRETCHER, AND PATIENT CURLING HIS LEGS TOWARDS HER CHEST, ASKING FOR ANOTHER BLANKET BECAUSE SHE IS COLD. AWAITING ON TRANSPORTATION VIA EMS WHEELCHAIR VAN HOME.
--- NOTE | 2021-03-21 01:23 | PC.NURSE ---
SPEAKING WITH MD CROWLEY REGARDING THE PATIENT AND WITH FAMILY CONCERNS AND CONCERNS THIS RN HAS SEEN FROM PATIENT. DAUGHTER CALLED AND INFORMED THAT WE WILL BE RUNNING ADDITIONAL TESTS AND CALL HER LATER WITH ALL THE RESULTS. DAUGHTER SEEM RELIEVED THAT ADDITIONAL TESTING AND RETESTING IS BEING DONE. PATIENT REMAINS ALERT BUT CONFUSED RESPONDS TO NAME IS MOVING EXTREMITIES, BUT SEEMS TO WANT TO HAVE HER KNEES PRESSED TO HER CHEST, DOES NOT APPEAR COMFORTABLE, ATTEMPTING TO MOVE PATIENT TO A MORE COMFORTABLE POSITION PATIENT THEN MOVING HERSELF BACK TO THE SAME POSITION. STATING SHE CAN'T MOVE BUT THEN MOVING HER ARMS AND LEGS. PLAN FOR MORE IMAGING AND LABS TO BE DONE. PATIENT CURRENTLY IN CT SCAN
[2021-03-21 02:09] LABS: ABG Base Excess -1.8 mmol/L; ABG HCO3 21 mmol/L (22-26); ABG pCO2 31 mmHg (32-45); ABG pH 7.43 (7.35-7.45); ABG pO2 82 mmHg (83-108)
[2021-03-21 02:10] LABS: ABG Refer to POC result
[2021-03-21 02:18] LABS: Amphetamine Screen Urine Not Detected (Not Detect); Barbiturates, Urine Not Detected (Not Detect); Benzodiazepines Screen Urine POSITIVE (Not Detect); Cannabinoid Screen Urine Not Detected (Not Detect); Cocaine Screen Urine Not Detected (Not Detect); Fentanyl, urine Not Detected (Not Detect); Opiate Screen Urine Not Detected (Not Detect); Phencyclidine Screen Urine Not Detected (Not Detect)
[2021-03-21 02:44] LABS: Ammonia 29 umol/L (13-55)
[2021-03-21 02:48] LABS: Glucose, Whole Blood 128 mg/dL (60-115)
[2021-03-21 02:52] LABS: Ethanol < 10 mg/dL
[2021-03-21 03:17] LABS: Thyroid Stimulating Hormone 0.91 uIU/mL (0.32-4.0)
--- NOTE | 2021-03-21 04:22 | PC.NURSE ---
Pt noted to have seizure-like activity, vitals as charted, MD French at bedside. Maintaining airway, corneal reflex and gag reflex intact. OPA placed. Vitals as charted, suction at bedside, all safety parameters in place per protocol
[2021-03-21] MEDS: LORazepam 2 MG/ML VIAL IM (04:23)
[2021-03-21] MEDS: levETIRAcetam in NaCl (iso-os) 1,500 MG/100 ML PIGGYBACK 400 MG IV (05:42)
--- NOTE | 2021-03-21 06:26 | P.HPHOSP_ITS ---
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 quid in it of leftove. She was brought to the ED following what family thought was a seizure episode with post ictal state..Work up in ED including labs, imaging of head were negative and patient was to be discharge but at that time she seem more confused, agitated and not following command so had repeat imagings of CT head, neck and abdomen all unremarkable and ED physican not sure waht is going on at this point and can't send home like this . Jennifer she remained in the ED, she had what looks like another seizure and was given ativan followed by Manjinder. She currently sedate although attempting to get up if stimulated. I am not able to get any direct history from her. I could not reach daughter that she supposedly live by phone. I have no idea what meds she takes, as no med rec available,. Pharmacy records shows that she take Xanax, coumdin, Venlafaxine, sertraline among other. MD complaint: seizure Review of Systems Review of Systems: Yes Unobtainable due to mental status PMFSH Medical History Anxiety CVA (cerebral vascular accident) Depression Endocarditis High cholesterol Opioid use disorder Seizure Pertinent family history: Unable to obtained due to confusion, and cannot reach family Surgical History Mitral valve replaced Social History Household Members: Unknown / Unable to assess Housing: Unknown / Unable to assess Do you presently have visiting nurse or other home services: No (unknown) Unable to assess alcohol history related to: Unknown Alcohol intake: unknown Patient Tobacco Use Status: Tobacco use Unknown Use of substances other than those prescribed or required for medical reasons: No Substance Use Type: Heroin Advance Directives: No Advance Directives Information Provided: No Patient : No service: No Current occupational status: unemployed Meds Allergies Allergy/AdvReac Type Severity Reaction Status Date / Time No Known Allergies Allergy Verified 03/21/21 15:25 Home Medications Medication Instructions Recorded Confirmed Last Taken Type alprazolam 1 mg tablet 1 tab PO TID PRN 03/21/21 03/21/21 Unknown History atorvastatin 40 mg tablet 1 tab PO BEDTIME 03/21/21 03/21/21 Unknown History levetiracetam 750 mg tablet 1 tab PO BID 03/21/21 03/21/21 Unknown History metoprolol succinate 50 mg 1 tab PO DAILY 03/21/21 03/21/21 Unknown History tablet,extended release 24 hr mirtazapine 15 mg tablet 1 tab PO BEDTIME 03/21/21 03/21/21 Unknown History sertraline 100 mg tablet 1 tab PO DAILY 03/21/21 03/21/21 Unknown History venlafaxine 75 mg capsule,extended 1 cap PO DAILY 03/21/21 03/21/21 Unknown History release 24 hr warfarin 1 mg tablet 1 tab PO DAILY 03/21/21 Unknown History warfarin 10 mg tablet 1 tab PO DAILY 03/21/21 03/21/21 Unknown History methadone 5 mg tablet 105 mg PO DAILY 03/22/21 03/22/21 Unknown History Physical Exam Vital Signs and Narrative: Vital Signs: Last Vital Signs Temp 98.5 F 03/20/21 17:24 Pulse 95 03/21/21 05:39 Resp 18 03/21/21 05:39 BP 125/81 03/21/21 05:39 Pulse Ox 93 03/21/21 05:39 Body Mass Index 31.7 Constitutional Awake and Alert, No apparent distress HEENT anicteric, has a nsal trumpet in Neck Supple, No lymphadenopathy Cardiovascular RRR, No M/R/G, S1 S2, No S3 S4, No pedal edema Respiratory Lungs clear, No respiratory distress, she is breathing comfortably, Gastrointestinal Non tender, Non-distended Skin No rash Neurological Alert & oriented, sedated, not following commands. Psychologica unable to assess Results Labs CBC and Chem 7: 03/22/21 05:33 03/22/21 05:33 Labs: Laboratory Results - last 24 hr 03/20/21 03/20/21 03/20/21 17:02 17:06 17:13 MCV 87.7 MCH 29.4 MCHC 33.5 RDW 14.7 Plt Count 214 MPV 10.3 Immature Gran % (Auto) 0.2 Neut % (Auto) 75.6 H Lymph % (Auto) 16.4 L [place] % (Auto) 6.7 Eos % (Auto) 0.9 Baso % (Auto) 0.2 Lymph # (Auto) 0.7 L [place] # (Auto) 0.3 Eos # (Auto) 0.0 Baso # (Auto) 0.0 Abs Immat Gran (auto) 0.01 Absolute Neuts (auto) 3.3 Absolute Nucleated RBC 0.000 Nucleated RBC % (auto) 0.0 PT INR O2 Saturation ABG pH at Pt Temp ABG pCO2 at Pt Temp ABG pO2 at Pt Temp ABG HCO3 ABG Base Excess (Actual) Anion Gap Estim Creat Clear Calc Estimated GFR POC Glucose 99 Random Glucose Calcium Ammonia TSH Urine Color Urine Appearance Urine pH Ur Specific [place] Urine Protein Urine Glucose (UA) Urine Ketones Urine Blood Urine Nitrite Ur Leukocyte Esterase Urine RBC Urine WBC Ur Squamous Epith Cells Amorphous Sediment Urine Bacteria Urine Mucus Urine Opiates Screen Urine Fentanyl Screen Ur Barbiturates Screen Ur Phencyclidine Scrn Ur Amphetamines Screen U Benzodiazepines Scrn Urine Cocaine Screen U Marijuana (THC) Screen Ethyl Alcohol COVID-19 (CLARITZA) Negative COVID-19 Clin Com See Note 03/20/21 03/20/21 03/20/21 17:13 17:53 19:37 MCV MCH MCHC RDW Plt Count MPV Immature Gran % (Auto) Neut % (Auto) Lymph % (Auto) [place] % (Auto) Eos % (Auto) Baso % (Auto) Lymph # (Auto) [place] # (Auto) Eos # (Auto) Baso # (Auto) Abs Immat Gran (auto) Absolute Neuts (auto) Absolute Nucleated RBC Nucleated RBC % (auto) PT 33.2 H D INR 2.9 H O2 Saturation ABG pH at Pt Temp ABG pCO2 at Pt Temp ABG pO2 at Pt Temp ABG HCO3 ABG Base Excess (Actual) Anion Gap 13 Estim Creat Clear Calc 74.0 Estimated GFR > 60 POC Glucose Random Glucose 96 Calcium 9.1 D Ammonia TSH 0.91 Urine Color YELLOW Urine Appearance HAZY Urine pH 8.0 Ur Specific [place] 1.015 Urine Protein TRACE Urine Glucose (UA) NEG Urine Ketones NEG Urine Blood NEG Urine Nitrite NEG Ur Leukocyte Esterase 1+ H Urine RBC 0-2 Urine WBC 1-4 Ur Squamous Epith Cells 1+ Amorphous Sediment 1+ Urine Bacteria 2+ Urine Mucus 2+ Urine Opiates Screen Urine Fentanyl Screen Ur Barbiturates Screen Ur Phencyclidine Scrn Ur Amphetamines Screen U Benzodiazepines Scrn Urine Cocaine Screen U Marijuana (THC) Screen Ethyl Alcohol COVID-19 (CLARITZA) COVID-19 Exo Protein Bars Com 03/20/21 03/21/21 03/21/21 19:37 02:03 02:20 MCV MCH MCHC RDW Plt Count MPV Immature Gran % (Auto) Neut % (Auto) Lymph % (Auto) [place] % (Auto) Eos % (Auto) Baso % (Auto) Lymph # (Auto) [place] # (Auto) Eos # (Auto) Baso # (Auto) Abs Immat Gran (auto) Absolute Neuts (auto) Absolute Nucleated RBC Nucleated RBC % (auto) PT INR O2 Saturation 96.0 ABG pH at Pt Temp 7.43 ABG pCO2 at Pt Temp 31 L ABG pO2 at Pt Temp 82 L ABG HCO3 21 L ABG Base Excess (Actual) -1.8 Anion Gap Estim Creat Clear Calc Estimated GFR POC Glucose 128 H Random Glucose Calcium Ammonia TSH Urine Color Urine Appearance Urine pH Ur Specific [place] Urine Protein Urine Glucose (UA) Urine Ketones Urine Blood Urine Nitrite Ur Leukocyte Esterase Urine RBC Urine WBC Ur Squamous Epith Cells Amorphous Sediment Urine Bacteria Urine Mucus Urine Opiates Screen Not Detected Urine Fentanyl Screen Not Detected Ur Barbiturates Screen Not Detected Ur Phencyclidine Scrn Not Detected Ur Amphetamines Screen Not Detected U Benzodiazepines Scrn POSITIVE H Urine Cocaine Screen Not Detected U Marijuana (THC) Screen Not Detected Ethyl Alcohol COVID-19 (CLARITZA) COVID-19 Exo Protein Bars Com 03/21/21 03/21/21 02:32 02:33 MCV MCH MCHC RDW Plt Count MPV Immature Gran % (Auto) Neut % (Auto) Lymph % (Auto) [place] % (Auto) Eos % (Auto) Baso % (Auto) Lymph # (Auto) [place] # (Auto) Eos # (Auto) Baso # (Auto) Abs Immat Gran (auto) Absolute Neuts (auto) Absolute Nucleated RBC Nucleated RBC % (auto) PT INR O2 Saturation ABG pH at Pt Temp ABG pCO2 at Pt Temp ABG pO2 at Pt Temp ABG HCO3 ABG Base Excess (Actual) Anion Gap Estim Creat Clear Calc Estimated GFR POC Glucose Random Glucose Calcium Ammonia 29 TSH Urine Color Urine Appearance Urine pH Ur Specific [place] Urine Protein Urine Glucose (UA) Urine Ketones Urine Blood Urine Nitrite Ur Leukocyte Esterase Urine RBC Urine WBC Ur Squamous Epith Cells Amorphous Sediment Urine Bacteria Urine Mucus Urine Opiates Screen Urine Fentanyl Screen Ur Barbiturates Screen Ur Phencyclidine Scrn Ur Amphetamines Screen U Benzodiazepines Scrn Urine Cocaine Screen U Marijuana (THC) Screen Ethyl Alcohol < 10 COVID-19 (CLARITZA) COVID-19 Clin Com Imaging Radiologist's Impressions: Impressions Head CT 03/20/21 16:44 IMPRESSION: No acute intracranial abnormality. Chest one view: HISTORY: Trauma. Heart and mediastinal normal. No mediastinal widening parenchymal disease or pleural abnormality. No ectopic air. No gross rib fracture. IMPRESSION: No acute chest pathology. Chest X-Ray 03/20/21 17:01 IMPRESSION: No acute intracranial abnormality. Chest one view: HISTORY: Trauma. Heart and mediastinal normal. No mediastinal widening parenchymal disease or pleural abnormality. No ectopic air. No gross rib fracture. IMPRESSION: No acute chest pathology. Abdomen/Pelvis CT 03/21/21 01:19 IMPRESSION: 1. Groundglass opacities noted at both lung bases could be infectious or inflammatory. No dense consolidation. 2. Prominent appearance of the common bile duct without ductal filling defect. No inflammatory changes of the abdomen or pelvis. 3. Prominent fat-containing ventral abdominal wall hernia. Head CT 03/21/21 01:21 IMPRESSION: 1. No acute intracranial finding. No change from recent prior. 2. No acute fracture or malalignment of the cervical spine. Mild degenerative change. Cervical Spine CT 03/21/21 01:23 IMPRESSION: 1. No acute intracranial finding. No change from recent prior. 2. No acute fracture or malalignment of the cervical spine. Mild degenerative change. Chest CT 03/21/21 01:31 IMPRESSION: 1. Groundglass opacities noted at both lung bases could be infectious or inflammatory. No dense consolidation. 2. Prominent appearance of the common bile duct without ductal filling defect. No inflammatory changes of the abdomen or pelvis. 3. Prominent fat-containing ventral abdominal wall hernia. 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 She was brought to the ED following what family thought was a seizure episode with post ictal state..Work up in ED including labs, imaging of head are unremarkable, witnessed seizure in ED and also appear to have UTI, information is limitted as unable to get info, and not able to reach family. There is no fever , nor leukocytosis to suggest encephalopathy or meningitis to warrant LP Plan: For now will manageme for presumed seizure with post ictal state of agiation, there is a possibility of withdrawal from drugs such as benzo--and more information from family will be helpful. For now, hydrate, Keppra as ordered by ED. Neurology consult, EEG, I don't think there is indication for antibotics at time. Once family is available we should obtain med rec and reconcile, she should continue coumadin for valve replacement. Ceftriaxone probably UTI Quality Stroke Does the patient have a stroke diagnosis?: No VTE Prior VTE?: No VTE Risk Level:: Medical - low VTE Device Contraindication: Treatment Not Indicated VTE Drug Contraindication: N/A - Med Ordered
--- NOTE | 2021-03-21 06:48 | PC.NURSE ---
ATTEMPTED TO CALL DAUGHTER FOR AN UPDATE ON PATIENT, CALLED TWICE NO RESPONSE AT THIS TIME WILL LET PRIMARY NURSE KNOW .
--- NOTE | 2021-03-21 07:23 | PC.NURSE ---
antibiotics held until blood cultures collected. Receptionist Doctor'S Office attempted and was unsuccessful. waiting for lab draw at this time.
[2021-03-21] MEDS: Dextrose 5 % and 0.45 % NaCl 1,000 ML 100 ML IVCONT ×2 (08:15→18:32)
--- NOTE | 2021-03-21 08:25 | PC.NURSE ---
spoke to lab at this time after multiple attempts at calling. lab to come and draw lactic/cultures
[2021-03-21] MEDS: cefTRIAXone sodium 1 GM in 0.9 % Sodium Chloride 50 ML IV (09:03)
[2021-03-21] MEDS: 0.9 % Sodium Chloride Flush 3 ML SYRINGE IVFLUSH ×2 (09:04→21:21)
[2021-03-21 09:18] LABS: C Reactive Protein 0.79 mg/dL (< or = 0.50); Lactate Dehydrogenase 353 U/L (122-220); Magnesium 1.9 mg/dL (1.6-2.6)
[2021-03-21 09:22] LABS: Lactic Acid 2.3 mmol/L (0.5-2.0)
[2021-03-21 09:39] LABS: Procalcitonin 0.02 ng/mL
[2021-03-21 10:59] LABS: Reflex Lactate? Lactic Acid Added
--- NOTE | 2021-03-21 12:05 | PC.NURSE ---
pt daughter called and spoke with community pharmacist regarding her mother. reports she normally takes Methadone unsure of dose. reports she is dosed through [facility] clinic. CLinic is closed today. pt resting with eyes closed. will wake to name being called but not fully respond, only moaning. VSS.
[2021-03-21 12:23] LABS: ~Lactic Acid-LAB USE ONLY 1.8 mmol/L (0.5-2.0)
[2021-03-21 14:17] LABS: Adenovirus PCR Not Detected (Not Detect.); Bordetella parapertussis PCR Not Detected (Not Detect.); Bordetella pertussis PCR Not Detected (Not Detect.); Chlamydia pneumoniae PCR Not Detected (Not Detect.); Coronavirus 229E PCR Not Detected (Not Detect.); Coronavirus HKU1 PCR Not Detected (Not Detect.); Coronavirus NL63 PCR Not Detected (Not Detect.); Coronavirus OC43 PCR Not Detected (Not Detect.); Human metapneumovirus PCR Not Detected (Not Detect.); Influenza A PCR Not Detected (Not Detect.); Influenza B PCR Not Detected (Not Detect.); Mycoplasma pneumoniae PCR Not Detected (Not Detect.); Parainfluenza 1 PCR Not Detected (Not Detect.); Parainfluenza 2 PCR Not Detected (Not Detect.); Parainfluenza 3 PCR Not Detected (Not Detect.); Parainfluenza 4 PCR Not Detected (Not Detect.); RSV PCR Not Detected (Not Detect.); SARS-CoV-2 PCR Not Detected (Not Detect.)
--- NOTE | 2021-03-21 14:20 | MHC.CM.PN ---
CM ATTEMPTED TO SEE PT. PT NOT YET ON UNIT. CM TO RETURN
--- NOTE | 2021-03-21 14:24 | PC.NURSE ---
pt incontinent of urine. changed rn and cleaned her up. pt was able to follow direction and verbalized to t/w that she is cold and wanted a blanket. pt responding to her name and commands
--- NOTE | 2021-03-21 14:38 | PC.NURSE ---
DAUGHTER CALLED AND MADE AWARE THAT HER MOTHER IS BEING TRANSFERRED TO [facility]
--- NOTE | 2021-03-21 14:43 | PM.EVENT ---
Event Note Date of Service: 03/21/21 Event Note: day hospitalist update S quite somnolent, unable to obtain ROS O VS BP 115/69 P 91 R 19 SaO2 98 on RA gen NAD lungs clear CV mechanical S1, no m/r/g abd soft/NT neuro somnolent, not following commands- ?postictal A/P hospital d#1 55yo F with sz disorder, anxiety/depression, CVA with residual L weakness/slurred speech, hx IE with MV replacement on warfarin admitted after seizure at home, again in ED # seizure - Neuro consult, EEG, Rigoberto # UTI - ceftriaxone, f/u UCx # HTN - metoprolol # HLD - continue statin # mechanical mitral valve - warfarin, monitor INR # mood disorder - venlafaxine, sertraline, mirtazapine
[2021-03-21] MEDS: levETIRAcetam 750 MG in 0.9 % Sodium Chloride 100 ML 430 MG IV (18:34)
[2021-03-21] MEDS: Atorvastatin Calcium 40 MG TABLET PO (21:21)
[2021-03-21] MEDS: Mirtazapine 15 MG TABLET PO (21:21)
--- NOTE | 2021-03-22 | EEG_ITS ---
This is a 16-channel EEG with an EKG lead. The patient is reported awake during the tracing. Background EEG rhythm is slow alpha to theta, low to medium amplitude with intermittent further generalized slowing in theta to delta range. No definite asymmetry, focal activity, or paroxysmal discharges were noted. Cardiac lead did not reveal any significant abnormality. Hyperventilation was not performed. Photic stimulation did not produce any significant driving. IMPRESSION: Generalized slowing suggestive of bihemispheric dysfunction, usually from a metabolic reason. MD THOMAS Fraire/ULISES / [id number]
[2021-03-22] MEDS: Dextrose 5 % and 0.45 % NaCl 1,000 ML 100 ML IVCONT (03:37)
[2021-03-22 03:41] VITALS: BP 107/65; PULSE 78; RESP 18; TEMP 36.3; O2SAT 97
[2021-03-22] MEDS: levETIRAcetam 750 MG in 0.9 % Sodium Chloride 100 ML 430 MG IV (05:11)
[2021-03-22 05:47] LABS: Hematocrit 40.9 % (37-47); Hemoglobin 13.8 g/dl (12.0-16.0); Mean Corpuscular HGB Conc 33.7 g/dl (31.0-35.0); Mean Corpuscular Hemoglobin 29.6 pg (27.0-33.0); Mean Corpuscular Volume 87.8 fL (80-98); Mean Platelet Volume 10.2 fL (9.4-12.3); Platelet Count 185 X10*3/uL (160-400); Red Blood Count 4.66 X10*6/uL (4.20-5.50); White Blood Count 7.5 X10*3/uL (4.8-10.8)
[2021-03-22 06:10] LABS: Anion Gap 13 (12-20); Blood Urea Nitrogen 13 mg/dL (9-16); Calcium 8.7 mg/dL (8.4-10.2); Carbon Dioxide 20 mmol/L (22-29); Chloride 110 mmol/L (96-108); Creatinine Clr Calc Pharmacy 86.4; Estimated Glomerular Filt Rate > 60; Glucose Random 102 mg/dL (60-115); Potassium 3.8 mmol/L (3.3-5.1); Sodium 139 mmol/L (135-145)
[2021-03-22 06:11] LABS: INTERNATIONAL NORM RATIO 2.8 (0.9-1.1); Prothrombin Time 32.9 SEC (9.9-13.0)
[2021-03-22] MEDS: cefTRIAXone sodium 1 GM in 0.9 % Sodium Chloride 50 ML IV (06:19)
[2021-03-22 06:28] LABS: HBS Num1 0.24 mIU/mL (0-7.99); HBc Num1 0.12 S/CO (0.00-0.79); HIV AB/AG Nonreactive (Nonreactive); HIV Num 1 0.14 S/CO (0.00-0.99); Hepatitis B Core Antibody Nonreactive (Nonreactive); ~HepC Num1 13.42 S/CO (0.00-0.79); ~Hepatitis B Surface Antibody NONREACTIVE (Nonreactive); ~Hepatitis C Antibody Reactive (Nonreactive)
[2021-03-22 06:38] LABS: HBsAGNum1 0.18 S/CO (0.00-0.99); Hepatitis B Surface Antigen Negative (Negative)
[2021-03-22 07:30] VITALS: BP 129/67; PULSE 80; RESP 17; TEMP 36.4; O2SAT 99
[2021-03-22] MEDS: Sertraline HCL 100 MG TABLET PO (08:44)
[2021-03-22] MEDS: Metoprolol Succinate ER 50 MG TAB.ER.24H PO (08:44)
[2021-03-22] MEDS: Venlafaxine HCl ER 75 MG CAP.ER.24H PO (08:44)
--- NOTE | 2021-03-22 09:17 | MHC.CM.PN ---
CM ATTEMPTED TO MEET W/PT HOWEVER PT OFF UNIT FOR CT SCAN, CM WILL REVISIT.
--- NOTE | 2021-03-22 09:40 | P.PNIM_ITS ---
Subjective Subjective Date of Service: 03/22/21 Interval History: awake this morning no further seizures did not take Keppra for a few days . per her daughter, this is because it makes her dizzy she is also on methadone through [facility] also smokes 1/2 ppd Review of Systems Review of Systems: Yes all other systems are reviewed and are negative Physical Exam Vital Signs: Vital Signs: Last Vital Signs Temp 97.5 F 03/22/21 07:30 Pulse 80 03/22/21 07:30 Resp 17 03/22/21 07:30 BP 129/67 03/22/21 07:30 Pulse Ox 99 03/22/21 07:30 Body Mass Index 31.7 Gen: in no acute distress HEENT: sclera anicteric, moist mucus membranes Neck: supple Lungs: clear to auscultation bilaterally Heart: mechanical S1 click, regular rate and rhythm, soft holosystolic murmur at apex Abd: soft, non-tender, non-distended Ext: no edema Skin: warm/well-perfused Neuro: alert and oriented x3, no focal findings Psych: restricted affect Objective Data Active Medications Acetaminophen (Acetaminophen 325 Mg Tablet) 650 mg PO Q6H PRN PRN Reason: Pain, Mild (Pain Scale 1-3) Alprazolam (Alprazolam 0.5 Mg Tablet) 1 mg PO TID PRN PRN Reason: Anxiety Atorvastatin Calcium (Atorvastatin Calcium 40 Mg Tablet) 40 mg PO BEDTIME [facility] Last Admin: 03/21/21 21:21 Dose: 40 mg Documented by: JUAN CARLOS Dextrose/Sodium Chloride (D51/2ns) 1,000 mls @ 100 mls/hr IVCONT .Q10H IRAM Last Admin: 03/22/21 03:37 Dose: 100 mls/hr Documented by: JUAN CARLOS Ceftriaxone Sodium 1 gm/ (Sodium Chloride) 50 mls @ 100 mls/hr IV Q24H [facility] Last Infusion: 03/22/21 07:09 Dose: 0 mls/hr Documented by: JUAN CARLOS Levetiracetam 750 mg/ Sodium (Chloride) 107.5 mls @ 430 mls/hr IV Q12H IRAM Last Infusion: 03/22/21 05:39 Dose: 0 mls/hr Documented by: JUAN CARLOS Metoprolol Succinate (Metoprolol Succinate Er 50 Mg Tab.Er.24h) 50 mg PO DAILY [facility]; Protocol Last Admin: 03/22/21 08:44 Dose: 50 mg Documented by: MICHAEL Mirtazapine (Mirtazapine 15 Mg Tablet) 15 mg PO BEDTIME [facility] Last Admin: 03/21/21 21:21 Dose: 15 mg Documented by: JUAN CARLOS Nicotine (Nicotine 14 Mg Patch.Td24) 14 mg TRANSDERMA DAILY [facility] Ondansetron HCl (Ondansetron Hcl 4 Mg/2 Ml Vial) 4 mg IVPUSH Q8H PRN PRN Reason: Nausea and Vomiting Sertraline HCl (Sertraline Hcl 100 Mg Tablet) 100 mg PO DAILY [facility] Last Admin: 03/22/21 08:44 Dose: 100 mg Documented by: MICHAEL Sodium Chloride (0.9 % Sodium Chloride Flush 3 Ml Syringe) 3 ml IVFLUSH QSHIFT [facility] Last Admin: 03/22/21 07:25 Dose: Not Given Documented by: MICHAEL Non-Admin Reason: IV Running Venlafaxine HCl (Venlafaxine Hcl Er 75 Mg Cap.Er.24h) 75 mg PO DAILY [facility] Last Admin: 03/22/21 08:44 Dose: 75 mg Documented by: MICHAEL Warfarin Sodium (Warfarin Sodium 10 Mg Tablet) 10 mg PO DAILY@1800 [facility] Labs CBC & Chem 7: 03/22/21 05:33 03/22/21 05:33 Labs: Laboratory Results - last 24 hr 03/21/21 03/22/21 03/22/21 11:41 05:33 05:33 MCV 87.8 MCH 29.6 MCHC 33.7 RDW 15.0 Plt Count 185 MPV 10.2 Absolute Nucleated RBC 0.000 Nucleated RBC % (auto) 0.0 PT INR Anion Gap 13 Estim Creat Clear Calc 86.4 Estimated GFR > 60 Random Glucose 102 Lactic Acid Fup @ 2Hr 1.8 Calcium 8.7 Hep Bs Antigen Hep Bs Antibody Hep B Core Total Ab Hepatitis C Ab (EIA) HIV 1&2 Ab/P24 Ag 4thGn 03/22/21 03/22/21 05:33 05:33 MCV MCH MCHC RDW Plt Count MPV Absolute Nucleated RBC Nucleated RBC % (auto) PT 32.9 H INR 2.8 H Anion Gap Estim Creat Clear Calc Estimated GFR Random Glucose Lactic Acid Fup @ 2Hr Calcium Hep Bs Antigen Negative Hep Bs Antibody NONREACTIVE Hep B Core Total Ab Nonreactive Hepatitis C Ab (EIA) Reactive H HIV 1&2 Ab/P24 Ag 4thGn Nonreactive Microbiology Microbiology Results: Microbiology 03/20/21 Unknown Urine Culture - Preliminary Urine clean catch - Urine anaya top Culture in progress. Assessment and Plan (1) Epileptic seizure: Status: Acute Assessment and Plan: hospital d#2 55yo F with sz disorder, anxiety/depression, CVA with residual L weakness/slurred speech, hx IE with MV replacement on warfarin, opioid use disorder on methadone admitted after seizure at home, again in ED # breakthrough seizure - Neuro consult- ?antiepileptic alternatives?- but in meanwhile, continue Keppra # UTI - ceftriaxone d#2, f/u UCx # HTN - metoprolol # HLD - continue statin # mechanical mitral valve - warfarin, INR therapeutic # mood disorder - venlafaxine, sertraline, mirtazapine # opioid use disorder - confirm methadone dose and resume # tobacco abuse - NRT # VTE ppx - warfarin # dispo - PT consult Quality Stroke Does the patient have a stroke diagnosis?: No VTE Prior VTE?: No VTE Risk Level:: Medical - low VTE Device Contraindication: Treatment Not Indicated VTE Drug Contraindication: N/A - Med Ordered
[2021-03-22 09:47] LABS: Rhino/Enterovirus PCR Detected (Not Detect.)
[2021-03-22 11:31] VITALS: BP 127/61; PULSE 71; RESP 17; TEMP 36.9; O2SAT 97
[2021-03-22] MEDS: Nicotine 14 MG PATCH.TD24 TRANSDERMA (11:31)
[2021-03-22 11:38] VITALS: BP 127/61; PULSE 71; O2SAT 97
[2021-03-22] MEDS: methADONE HCl 20 MG/2 ML ORAL.CONC 105 MG PO (12:24)
--- NOTE | 2021-03-22 12:53 | PM.NEUROCN ---
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 She was brought to hospital with a breakthrough seizure. She was being treated for UTI and also had chest x-ray abnormalities. When I saw her she was drowsy. She could not tell me her detail history. PMFSH Past Medical History Medical History Anxiety CVA (cerebral vascular accident) Depression Endocarditis High cholesterol Opioid use disorder Seizure Surgical History Surgical History Mitral valve replaced Social History Social History Household Members: Unknown / Unable to assess Housing: Unknown / Unable to assess Do you presently have visiting nurse or other home services: No (unknown) Unable to assess alcohol history related to: Unknown Alcohol intake: never Patient Tobacco Use Status: Tobacco use Unknown Use of substances other than those prescribed or required for medical reasons: Unknown Substance Use Type: Heroin Currently Displaying Signs/Symptoms of Drug Intoxication Withdrawal: No Advance Directives: No Advance Directives Information Provided: No Do you have thoughts of harming others: None Do you have a plan to hurt others: No Plan Recently lost weight without trying: No Nutrition Risks: No Nutritional Risk Patient : No : No Poor oral hygiene: No Meds Allergies Allergy/AdvReac Type Severity Reaction Status Date / Time No Known Allergies Allergy Verified 03/21/21 15:25 Active Medications: Current Medications Acetaminophen (Acetaminophen 325 Mg Tablet) 650 mg PO Q6H PRN PRN Reason: Pain, Mild (Pain Scale 1-3) Alprazolam (Alprazolam 0.5 Mg Tablet) 1 mg PO TID PRN PRN Reason: Anxiety Atorvastatin Calcium (Atorvastatin Calcium 40 Mg Tablet) 40 mg PO BEDTIME ON LICENSE OF [facility] Last Admin: 03/21/21 21:21 Dose: 40 mg Documented by: Ceftriaxone Sodium 1 gm/ (Sodium Chloride) 50 mls @ 100 mls/hr IV Q24H IRAM Last Infusion: 03/22/21 07:09 Dose: Infused Documented by: Levetiracetam (Levetiracetam 250 Mg Tablet) 750 mg PO BID@0600,1800 ON LICENSE OF [facility] Methadone HCl (Methadone Hcl 20 Mg/2 Ml Oral.Conc) 105 mg PO DAILY ON LICENSE OF [facility] Last Admin: 03/22/21 12:24 Dose: 105 mg Documented by: Metoprolol Succinate (Metoprolol Succinate Er 50 Mg Tab.Er.24h) 50 mg PO DAILY ON LICENSE OF [facility]; Protocol Last Admin: 03/22/21 08:44 Dose: 50 mg Documented by: Mirtazapine (Mirtazapine 15 Mg Tablet) 15 mg PO BEDTIME ON LICENSE OF [facility] Last Admin: 03/21/21 21:21 Dose: 15 mg Documented by: Nicotine (Nicotine 14 Mg Patch.Td24) 14 mg TRANSDERMA DAILY ON LICENSE OF [facility] Last Admin: 03/22/21 11:31 Dose: 14 mg Documented by: Ondansetron HCl (Ondansetron Hcl 4 Mg/2 Ml Vial) 4 mg IVPUSH Q8H PRN PRN Reason: Nausea and Vomiting Sertraline HCl (Sertraline Hcl 100 Mg Tablet) 100 mg PO DAILY ON LICENSE OF [facility] Last Admin: 03/22/21 08:44 Dose: 100 mg Documented by: Sodium Chloride (0.9 % Sodium Chloride Flush 3 Ml Syringe) 3 ml IVFLUSH QSHIFT ON LICENSE OF [facility] Last Admin: 03/22/21 07:25 Dose: Not Given Documented by: Venlafaxine HCl (Venlafaxine Hcl Er 75 Mg Cap.Er.24h) 75 mg PO DAILY ON LICENSE OF [facility] Last Admin: 03/22/21 08:44 Dose: 75 mg Documented by: Warfarin Sodium (Warfarin Sodium 10 Mg Tablet) 10 mg PO DAILY@1800 ON LICENSE OF [facility] Home Medications Medication Instructions Recorded Confirmed Last Taken Type alprazolam 1 mg tablet 1 tab PO TID PRN 03/21/21 03/21/21 Unknown History atorvastatin 40 mg tablet 1 tab PO BEDTIME 03/21/21 03/21/21 Unknown History levetiracetam 750 mg tablet 1 tab PO BID 03/21/21 03/21/21 Unknown History metoprolol succinate 50 mg 1 tab PO DAILY 03/21/21 03/21/21 Unknown History tablet,extended release 24 hr mirtazapine 15 mg tablet 1 tab PO BEDTIME 03/21/21 03/21/21 Unknown History sertraline 100 mg tablet 1 tab PO DAILY 03/21/21 03/21/21 Unknown History venlafaxine 75 mg capsule,extended 1 cap PO DAILY 03/21/21 03/21/21 Unknown History release 24 hr warfarin 1 mg tablet 1 tab PO DAILY 03/21/21 Unknown History warfarin 10 mg tablet 1 tab PO DAILY 03/21/21 03/21/21 Unknown History methadone 5 mg tablet 105 mg PO DAILY 03/22/21 03/22/21 Unknown History Physical Exam Vital Signs: Vital Signs: Last Vital Signs Temp 98.4 F 03/22/21 11:31 Pulse 71 03/22/21 11:38 Resp 17 03/22/21 11:31 BP 127/61 03/22/21 11:38 Pulse Ox 97 03/22/21 11:38 Body Mass Index 31.7 Neuro: Other: She was little bit drowsy but able to make eye contact and follow simple commands and answered simple questions. Pupils were round reactive to light. Extraocular muscles were intact. Visual colin are full. There was mild left-sided facial flatness. There was mild left hemiparesis. Results Labs CBC & Chem 7: 03/22/21 05:33 03/22/21 05:33 Labs: Short CBC 03/22/21 Range/Units 05:33 WBC 7.5 (4.8-10.8) X10*3/uL Hgb 13.8 (12.0-16.0) g/dl Hct 40.9 (37-47) % Plt Count 185 (160-400) X10*3/uL BMP 03/22/21 05:33 Sodium 139 Potassium 3.8 Chloride 110 H Carbon Dioxide 20 L BUN 13 Creatinine 0.78 Calcium 8.7 Her MRI of brain revealed a chronic right parietal cortical embolic looking infarct. Microbiology Microbiology Results: Microbiology 03/21/21 08:55 Blood - Venous Blood Culture - Preliminary No growth after 24 hours. 03/21/21 08:40 Blood - Venous Blood Culture - Preliminary No growth after 24 hours. 03/20/21 Unknown Urine clean catch - Urine anaya top Urine Culture - Final Assessment and Plan (1) Epileptic seizure: Status: Acute 56 years old woman with chronic right parietal infarct resulting in left hemiparesis and subsequent seizure disorder. Seizures might have been triggered by either not taking the medicine or infection. I would recommend continuing baseline dose of antiepileptics, if not known continue levetiracetam at least 500 mg twice a day Procedures Date of Service Date of Service: 03/22/21
[2021-03-22] MEDS: 0.9 % Sodium Chloride Flush 3 ML SYRINGE IVFLUSH ×2 (14:34→20:15)
[2021-03-22 15:19] VITALS: BP 113/67; PULSE 70; RESP 17; TEMP 36.6; O2SAT 97
--- NOTE | 2021-03-22 16:18 | MHC.CM.PN ---
Addendum entered by Felisa Gerardo RN 03/23/21 13:22: CLARIFICATION [place] NOT [place]. Addendum entered by Felisa Gerardo RN 03/22/21 16:29: PT'S DTR IS AWARE METHADONE IS A BARRIER FOR REHAB AND REPORTS SHE PREFERS [facility]. Original Note: EMR REVIEWED, PT ADMITTED W/SEIZURE, CONFUSION AND UTI, CM MET W/PT WHO IS ORIENTED TO NAME ONLY, PT DOES REPORT SHE LIVES W/HER DTR BAUDILIO HOWEVER GAVE AN ADDRESS FROM WHEN HER DTR WAS A CHILD, CM CONTACTED PT'S DTR BAUDILIO AT 1600 AND DTR REPORTED PT IS INDEPENDENT W/CARE ALTHOUGH SHE DOES HELP HER W/DRESSING AT TIME AND PT USES A CANE AT TIME HOWEVER NO OTHER DME AND NO HOME SERVICES, DTR DOES REPORT PT IS OFTEN CONFUSED FOR 2-3 DAYS AFTER HAVING A SEIZURE, DTR REPORTS RECENTLY MOVING MOM TO [place] D/T POOR CARE IN [place] R/T PT BEING ON METHADONE, DTR IS INTERESTED IN AT LEAST A VNA AND WOULD LIKE STR IF PT QUALIFIES. DTR DID REQUEST MORE CLINICAL INFO REGARDING MRI, HOSPITALIST NOTIFIED VIA [employer] AND WILL CONTACT DTR. D/C PLAN: HOME W/VNA VS STR, FAMILY VS BLS FOR TRANSPORT PT'S NEW ADDRESS: [address] [place] [id number]
[2021-03-22] MEDS: Warfarin Sodium 10 MG TABLET PO (17:40)
[2021-03-22] MEDS: levETIRAcetam 250 MG TABLET 750 MG PO (17:40)
[2021-03-22 19:33] VITALS: BP 123/77; PULSE 70; RESP 17; TEMP 36.1; O2SAT 97
[2021-03-22] MEDS: Atorvastatin Calcium 40 MG TABLET PO (20:15)
[2021-03-22] MEDS: Mirtazapine 15 MG TABLET PO (20:15)
[2021-03-23] VITALS (7 sets, daily range): BP systolic 111–122; BP diastolic 68–80; PULSE 69–70; RESP 15–18; TEMP 36.1–36.6; O2SAT 94–97
[2021-03-23] MEDS: levETIRAcetam 250 MG TABLET 750 MG PO ×2 (06:07→17:15)
[2021-03-23] MEDS: cefTRIAXone sodium 1 GM in 0.9 % Sodium Chloride 50 ML IV (06:07)
[2021-03-23 08:32] LABS: INTERNATIONAL NORM RATIO 2.2 (0.9-1.1); Prothrombin Time 25.5 SEC (9.9-13.0)
[2021-03-23] MEDS: Metoprolol Succinate ER 50 MG TAB.ER.24H PO (08:38)
[2021-03-23] MEDS: Nicotine 14 MG PATCH.TD24 TRANSDERMA (08:38)
[2021-03-23] MEDS: Sertraline HCL 100 MG TABLET PO (08:38)
[2021-03-23] MEDS: Venlafaxine HCl ER 75 MG CAP.ER.24H PO (08:39)
[2021-03-23] MEDS: methADONE HCl 20 MG/2 ML ORAL.CONC 105 MG PO (08:39)
[2021-03-23] MEDS: 0.9 % Sodium Chloride Flush 3 ML SYRINGE IVFLUSH ×3 (08:41→20:54)
--- NOTE | 2021-03-23 12:44 | MHC.CM.PN ---
CM CONTACTED PT'S DTR BAUDILIO AT:12:41PM [phone] TO VERIFY PCP AND SET UP A DISCHARGE TIME, PT'S DTR BECAME AGITATED WHEN THIS RN ASKING HER QUESTIONS AND TOLD CM TO HAVE HER TRAVELING AUDITOR CALL TO SET UP D/C. CM CONTACTED CM TRAVELING AUDITOR AND GAVE HER DTR'S CONTACT INFO.
--- NOTE | 2021-03-23 13:19 | W.MHC.F2F ---
Service Date Service Date: 03/23/21 Encounter Date of encounter: 03/23/21 Reasons for Services Reason for senior care: neurological assessment, medication treatment and teach disease management MD Overseeing Care: Nonstaff Physician Homebound: Leaving the home is medically contraindicated at this time without the asist of a device and/or another person due th the listed conditions above and below. Reason homebound: unsteady gait / fall risk and cognitively impaired / unsafe Certification: Based on the above findings, I certify that this patient is confined to the home and needs intermittent senior care care, physical therapy and/or speech therapy, or continues to need occupational therapy. The patient is under my care, and I have initiated the establishment of the plan of care. The patient will be followed by a physician who will periodically review the plan of care.
--- NOTE | 2021-03-23 14:04 | HO.PM.IMPN ---
Subjective Subjective Date of Service: 03/23/21 Interval History: no further seizures more awake Review of Systems Review of Systems: Yes all other systems are reviewed and are negative Physical Exam Vital Signs: Vital Signs: Last Vital Signs Temp 97.3 F 03/23/21 11:21 Pulse 69 03/23/21 11:21 Resp 15 03/23/21 11:21 BP 120/75 03/23/21 11:21 Pulse Ox 97 03/23/21 11:21 Body Mass Index 31.7 Gen: in no acute distress HEENT: sclera anicteric, moist mucus membranes Neck: supple Lungs: clear to auscultation bilaterally Heart: mechanical S1 click, regular rate and rhythm, soft holosystolic murmur at apex Abd: soft, non-tender, non-distended Ext: no edema Skin: warm/well-perfused Neuro: alert and oriented x3, mild L-sided weakness s/p prior CVA Psych: restricted affect Objective Data Active Medications Acetaminophen (Acetaminophen 325 Mg Tablet) 650 mg PO Q6H PRN PRN Reason: Pain, Mild (Pain Scale 1-3) Alprazolam (Alprazolam 0.5 Mg Tablet) 1 mg PO TID PRN PRN Reason: Anxiety Atorvastatin Calcium (Atorvastatin Calcium 40 Mg Tablet) 40 mg PO BEDTIME ON LICENSE OF [facility] Last Admin: 03/22/21 20:15 Dose: 40 mg Documented by: JUAN CARLOS Ceftriaxone Sodium 1 gm/ (Sodium Chloride) 50 mls @ 100 mls/hr IV Q24H ON LICENSE OF [facility] Last Infusion: 03/23/21 07:15 Dose: 0 mls/hr Documented by: JUAN CARLOS Levetiracetam (Levetiracetam 250 Mg Tablet) 750 mg PO BID@0600,1800 ON LICENSE OF [facility] Last Admin: 03/23/21 06:07 Dose: 750 mg Documented by: JUAN CARLOS Methadone HCl (Methadone Hcl 20 Mg/2 Ml Oral.Conc) 105 mg PO DAILY ON LICENSE OF [facility] Last Admin: 03/23/21 08:39 Dose: 105 mg Documented by: SABINE Metoprolol Succinate (Metoprolol Succinate Er 50 Mg Tab.Er.24h) 50 mg PO DAILY ON LICENSE OF [facility]; Protocol Last Admin: 03/23/21 08:38 Dose: 50 mg Documented by: SABINE Mirtazapine (Mirtazapine 15 Mg Tablet) 15 mg PO BEDTIME ON LICENSE OF [facility] Last Admin: 03/22/21 20:15 Dose: 15 mg Documented by: JUAN CARLOS Nicotine (Nicotine 14 Mg Patch.Td24) 14 mg TRANSDERMA DAILY ON LICENSE OF [facility] Last Admin: 03/23/21 08:38 Dose: 14 mg Documented by: SABINE Ondansetron HCl (Ondansetron Hcl 4 Mg/2 Ml Vial) 4 mg IVPUSH Q8H PRN PRN Reason: Nausea and Vomiting Sertraline HCl (Sertraline Hcl 100 Mg Tablet) 100 mg PO DAILY ON LICENSE OF [facility] Last Admin: 03/23/21 08:38 Dose: 100 mg Documented by: SABINE Sodium Chloride (0.9 % Sodium Chloride Flush 3 Ml Syringe) 3 ml IVFLUSH QSHIFT ON LICENSE OF [facility] Last Admin: 03/23/21 08:41 Dose: 3 ml Documented by: SABINE Venlafaxine HCl (Venlafaxine Hcl Er 75 Mg Cap.Er.24h) 75 mg PO DAILY ON LICENSE [facility] Last Admin: 03/23/21 08:39 Dose: 75 mg Documented by: SABINE Warfarin Sodium (Warfarin Sodium 10 Mg Tablet) 10 mg PO DAILY@1800 ON LICENSE OF [facility] Last Admin: 03/22/21 17:40 Dose: 10 mg Documented by: MICHAEL Labs CBC & Chem 7: 03/22/21 05:33 03/22/21 05:33 Labs: Laboratory Results - last 24 hr 03/23/21 07:51 PT 25.5 H D INR 2.2 H Microbiology Microbiology Results: Microbiology 03/21/21 08:55 Blood Culture - Preliminary Blood - Venous No growth after 48 hours. 03/21/21 08:40 Blood Culture - Preliminary Blood - Venous No growth after 48 hours. 03/20/21 Unknown Urine Culture - Final Urine clean catch - Urine anaya top Assessment and Plan (1) Epileptic seizure: Status: Acute Assessment and Plan: hospital d#3 55yo F with sz disorder, anxiety/depression, CVA with residual L weakness/slurred speech, hx IE with MV replacement on warfarin, opioid use disorder on methadone admitted after seizure at home, again in ED # breakthrough seizure - Neuro consulted. likely due to medication nonadherence. continue levetiracetam # UTI - ceftriaxone d#08/23 # HTN - continue metoprolol # HLD - continue statin # mechanical mitral valve - warfarin, INR therapeutic # mood disorder - venlafaxine, sertraline, mirtazapine # opioid use disorder - confirm methadone dose and resume # tobacco abuse - NRT # VTE ppx - warfarin # dispo - PT consult Quality Stroke Does the patient have a stroke diagnosis?: No VTE Prior VTE?: No VTE Risk Level:: Medical - low VTE Device Contraindication: Treatment Not Indicated VTE Drug Contraindication: N/A - Med Ordered
--- NOTE | 2021-03-23 15:28 | MHC.CM.PN ---
This fiction and nonfiction prose writer left VM for daughter to notify that pt will not discharge and we will be getting capacity eval for discharge panning and naming Healthcare Agent.
[2021-03-23] MEDS: Warfarin Sodium 10 MG TABLET PO (17:15)
[2021-03-23] MEDS: Atorvastatin Calcium 40 MG TABLET PO (20:54)
[2021-03-23] MEDS: Mirtazapine 15 MG TABLET PO (20:54)
[2021-03-24 03:57] VITALS: BP 127/81; PULSE 68; RESP 18; TEMP 36.1; O2SAT 94
[2021-03-24 06:03] LABS: INTERNATIONAL NORM RATIO 2.6 (0.9-1.1); Prothrombin Time 30.3 SEC (9.9-13.0)
[2021-03-24] MEDS: levETIRAcetam 250 MG TABLET 750 MG PO (06:25)
[2021-03-24] MEDS: cefTRIAXone sodium 1 GM in 0.9 % Sodium Chloride 50 ML IV (06:25)
[2021-03-24] MEDS: 0.9 % Sodium Chloride Flush 3 ML SYRINGE IVFLUSH (07:04)
[2021-03-24 07:19] VITALS: BP 112/76; PULSE 74; RESP 16; TEMP 36.6; O2SAT 95
[2021-03-24] MEDS: Nicotine 14 MG PATCH.TD24 TRANSDERMA (08:57)
[2021-03-24] MEDS: Metoprolol Succinate ER 50 MG TAB.ER.24H PO (08:58)
[2021-03-24] MEDS: methADONE HCl 20 MG/2 ML ORAL.CONC 105 MG PO (08:59)
[2021-03-24] MEDS: Venlafaxine HCl ER 75 MG CAP.ER.24H PO (08:59)
[2021-03-24] MEDS: Sertraline HCL 100 MG TABLET PO (08:59)
--- NOTE | 2021-03-24 09:51 | P.CNPS_ITS ---
History of Present Illness Date of Service: 03/24/21 Chief Complaint: Seizure confusion UTI Reason for Consult: capacity eval Requesting physician: Abdifatah Lucia Discussed with referring provider: Yes Sources of Information: patient interviewed and chart reviewed Additional Sources of Information: [facility] methadone clinic. HPI Narrative: Patient is a 56-year-old female with seizure disorder, UTI, and history of BONIFACIO, MDD, opioid use disorder on medication maintenance therapy (confirmed methadone dose of 105mg daily), endocarditis with MVR, and CVA with residual left-sided weakness, with resultant cognitive concerns, and difficulty with legal receptionist and expression. She was admitted after a seizure at home, with another one in ED. She was seen by Neurology on 03/22/2021, and they concluded that recent seizures may have been triggered by either not taking medication, or related to infection. In-patient provider has requested consult for decisional capacity out of concern regarding discharge planning. An EKG was completed on 03/20/2021, with results as follows: Normal sinus rhythm Incomplete right bundle branch block Nonspecific ST abnormality Prolonged QT (QTC was 490). Abnormal ECG Patient was sitting up in bed when this typewriter assembler entered room. She presented as calm, cooperative, and agreeable. She appeared confused, and had difficulty expressing her meaning, and became frustrated at times. She was tearful at times during encounter. It was difficult to obtain information from patient, as she often would not answer, appearing confused, or after a delay, would give simple answers. When asked the date, she stated I came back and forth . She was a to state the month as March. However, she was unable to state the year, date, or location. She did state that she was in [facility] after reading the board. When asked if she understood why she was here, she stated now. When told that she had a seizure, she then stated I think so . When asked if she is able to ambulate by herself, she stated I think so . Please note, nursing staff reports patient has unsteady gait, and uses walker. When asked if she understood what a healthcare proxy was, she stated not really . When discussing options such as short-term physical rehab, she stated I don't know . Patient was noted to have great difficulty during encounter, appears to have significant cognitive issues. Expressive aphasia was noted. When asked how long she has lived in [place], she stated she did not know, but says not long . When asked who she lives with, she stated my daughter Ochoa . When asked if she had any other family, she stated my son Sky . When asked about her son, she stated he lives in [place]. She provided a phone number that was later found to be disconnected. When asked about history of depression and anxiety, she became tearful. She then stated I feel depressed . When asked if she has ever been hospitalized psychiatrically, she stated no . When asked about any type of suicidal ideation, she stated no . When asked if she feels safe, she stated yes . When asked about methadone and opioid use disorder, she did state that she goes to a program. When asked if it was a place on [facility] named [facility], she nodded yes. She was unable to state her current methadone dose however. Regarding seizures, patient did not appear to understand her medical issues, including why she has been hospitalized. She appeared to have no understanding regarding the treatment she has received while here. She also did not appear to have any understanding regarding a healthcare proxy is, nor treatment options such as going home or going to a short-term rehab facility. Past Psychiatric History: Hx of depression, anxiety. Currently taking sertraline, venlafaxine. Hx opioid use disorder, in remission, receives 105mg methadone daily (weekly take-home doses) confirmed with [facility]. Denies IPLOC, PHP. Medical Evaluation Reviewed: Yes Personal & Social History: Patient disabled. Lives with adult child, Ochoa. Has a son, Sky, that lives in [place]. Recently moved to [place] from [place]. Review of Systems Review of Systems Patient unable to reply regarding review of systems, due to mental status cognitive abilities / understanding at this time. Constitutional: Reports no additional constitutional complaints Eyes: Reports no additional eye complaints Musculoskeletal: Reports abnormal gait (as per nursing. ) Reports abnormal gait (as per nursing. ) and Reports confusion Psychiatric: Reports confusion and Reports depression [facility] Medical History (Updated 03/24/21 @ 15:40 by Ayanna Driscoll) Anxiety CVA (cerebral vascular accident) Depression Endocarditis High cholesterol Opioid use disorder Seizure Surgical History Mitral valve replaced Family History: unknown at this time Social History: unknown at this time Substance History: Opioid use disorder, severe, on maintenance therapy. Trauma History: unknown at this time Diagnostics Vital Signs (24Hr): Vital Signs - 24 hr 03/23/21 11:21 03/23/21 15:51 03/23/21 19:06 Temperature 97.3 F 97.3 F 97.5 F Pulse Rate 69 69 69 Respiratory Rate 15 18 18 Blood Pressure 120/75 116/68 117/80 Pulse Oximetry 97 94 95 03/23/21 23:40 03/24/21 03:57 03/24/21 07:19 Temperature 96.9 F 96.9 F 97.8 F Pulse Rate 69 68 74 Respiratory Rate 18 18 16 Blood Pressure 122/79 127/81 112/76 Pulse Oximetry 95 94 95 Body Mass Index 31.7 Labs Results: 03/22/21 05:33 03/22/21 05:33 Labs: Laboratory Results - last 48 hr 03/23/21 03/24/21 07:51 05:39 PT 25.5 H D 30.3 H INR 2.2 H 2.6 H Imaging Radiology Impressions: ITS Impressions Head CT 03/20/21 16:44 IMPRESSION: No acute intracranial abnormality. Chest one view: HISTORY: Trauma. Heart and mediastinal normal. No mediastinal widening parenchymal disease or pleural abnormality. No ectopic air. No gross rib fracture. IMPRESSION: No acute chest pathology. Chest X-Ray 03/20/21 17:01 IMPRESSION: No acute intracranial abnormality. Chest one view: HISTORY: Trauma. Heart and mediastinal normal. No mediastinal widening parenchymal disease or pleural abnormality. No ectopic air. No gross rib fracture. IMPRESSION: No acute chest pathology. Abdomen/Pelvis CT 03/21/21 01:19 IMPRESSION: 1. Groundglass opacities noted at both lung bases could be infectious or inflammatory. No dense consolidation. 2. Prominent appearance of the common bile duct without ductal filling defect. No inflammatory changes of the abdomen or pelvis. 3. Prominent fat-containing ventral abdominal wall hernia. Head CT 03/21/21 01:21 IMPRESSION: 1. No acute intracranial finding. No change from recent prior. 2. No acute fracture or malalignment of the cervical spine. Mild degenerative change. Cervical Spine CT 03/21/21 01:23 IMPRESSION: 1. No acute intracranial finding. No change from recent prior. 2. No acute fracture or malalignment of the cervical spine. Mild degenerative change. Chest CT 03/21/21 01:31 IMPRESSION: 1. Groundglass opacities noted at both lung bases could be infectious or inflammatory. No dense consolidation. 2. Prominent appearance of the common bile duct without ductal filling defect. No inflammatory changes of the abdomen or pelvis. 3. Prominent fat-containing ventral abdominal wall hernia. Brain MRI 03/22/21 09:50 IMPRESSION: - There are no acute intracranial findings. No acute infarcts. - There is chronic encephalomalacia and gliosis within the right frontoparietal lobe and there is a chronic infarct within the right occipital lobe. Mental Status Exam Mental Status Exam Narrative: Patient was an overweight female, dishevelled, with unkempt long hair, sitting up in bed. Wearing hospital garb. No evidence of any type of opioid withdrawals noted (patient has resumed regular methadone dosing). No involuntary movements noted, motor activity calm. Ambulation not observered. Patient Appearance: Fatigued, Disheveled and Unkempt Patient Orientation: Person and Place Level of Consciousness: Awake and Disoriented (alert to self, able to read on wall that she is at [facility]. ) Patient Behavior: Appropriate, Cooperative, Good Eye Contact and Crying (tearful at times. ) Mood Description: Depressed Affect Description: Blunted and Flat Patient Cognition Impaired: Yes Ability to Follow Directions: Fair Speech Pattern: Impoverished, Difficulty Finding Words, Aphasic, Delayed and Long Pauses Memory Description: Remote Impaired, Immediate Impaired, Detention Impaired, Normal for Patient (question, as baseline unknown), Recent Impaired and Working Impaired Hallucinations: None (denies any auditory, visual, tactile hallucinations. ) Delusions: Not Present Thought Process: Disoriented, Slowed Thinking and Confusion Thought Content: positive for Disoriented, positive for Lizemores and positive for Poverty of Content Depressive Symptoms: Crying Spells (patient was tearful at times during interview. ) Abnormal Motor Activity Signs and Symptoms: Psychomotor Retardation Judgement: Poor Medications Medications Current Medications Acetaminophen (Acetaminophen 325 Mg Tablet) 650 mg PO Q6H PRN PRN Reason: Pain, Mild (Pain Scale 1-3) Alprazolam (Alprazolam 0.5 Mg Tablet) 1 mg PO TID PRN PRN Reason: Anxiety Atorvastatin Calcium (Atorvastatin Calcium 40 Mg Tablet) 40 mg PO BEDTIME IRAM Last Admin: 03/23/21 20:54 Dose: 40 mg Documented by: Ceftriaxone Sodium 1 gm/ (Sodium Chloride) 50 mls @ 100 mls/hr IV Q24H [facility] Last Infusion: 03/24/21 07:26 Dose: Infused Documented by: Levetiracetam (Levetiracetam 250 Mg Tablet) 750 mg PO BID@0600,1800 [facility] Last Admin: 03/24/21 06:25 Dose: 750 mg Documented by: Methadone HCl (Methadone Hcl 20 Mg/2 Ml Oral.Conc) 105 mg PO DAILY [facility] Last Admin: 03/24/21 08:59 Dose: 105 mg Documented by: Metoprolol Succinate (Metoprolol Succinate Er 50 Mg Tab.Er.24h) 50 mg PO DAILY [facility]; Protocol Last Admin: 03/24/21 08:58 Dose: 50 mg Documented by: Mirtazapine (Mirtazapine 15 Mg Tablet) 15 mg PO BEDTIME [facility] Last Admin: 03/23/21 20:54 Dose: 15 mg Documented by: Nicotine (Nicotine 14 Mg Patch.Td24) 14 mg TRANSDERMA DAILY [facility] Last Admin: 03/24/21 08:57 Dose: 14 mg Documented by: Ondansetron HCl (Ondansetron Hcl 4 Mg/2 Ml Vial) 4 mg IVPUSH Q8H PRN PRN Reason: Nausea and Vomiting Sertraline HCl (Sertraline Hcl 100 Mg Tablet) 100 mg PO DAILY [facility] Last Admin: 03/24/21 08:59 Dose: 100 mg Documented by: Sodium Chloride (0.9 % Sodium Chloride Flush 3 Ml Syringe) 3 ml IVFLUSH QSHIFT [facility] Last Admin: 03/24/21 07:04 Dose: 3 ml Documented by: Venlafaxine HCl (Venlafaxine Hcl Er 75 Mg Cap.Er.24h) 75 mg PO DAILY [facility] Last Admin: 03/24/21 08:59 Dose: 75 mg Documented by: Warfarin Sodium (Warfarin Sodium 10 Mg Tablet) 10 mg PO DAILY@1800 [facility] Last Admin: 03/23/21 17:15 Dose: 10 mg Documented by: Allergies Allergies Allergy/AdvReac Type Severity Reaction Status Date / Time No Known Allergies Allergy Verified 03/21/21 15:25 Assessment & Plan Assessment & Plan (1) Encounter for assessment of healthcare decision-making capacity: Status: Acute Code(s): Z02.79 - Encounter for issue of other medical certificate Assessment and Plan: Ms. Mcguire does not appear at this time to be capable of processing information regarding her Medical condition at this time. She appears to lack capacity regarding taking in any type of medical information, processing it in a meaningful way, and thus making informed medical decisions. It is unclear at this time to state if this is baseline, or is affected from recent seizures and /or recent urinary tract infection. Therefore, she may h ave ability to regain capacity, once she has fully recovered from recent seizure as well as UTI. As patient is new to this typewriter assembler and facility, and a baseline has not been fully established, it is unclear going forward. I have shared this opinion with Dr. Gardiner, as well as case management. Thank you for this consultation. If you have Any questions or concerns, please do not hesitate to contact Psychiatry Service. (2) Opioid use disorder: Status: Acute Code(s): F11.99 - Opioid use, unspecified with unspecified opioid-induced disorder Assessment and Plan: Patient currently receiving 105mg daily of methadone. she is enrolled at [facility] in [place]. This typewriter assembler contacted Dr. Mcgill at clinic, who confirmed that patient attends appointments with adult child Max. She reports that patient is provided with weekly 'take home doses, due to medical conditions including mitral valve replacement, COPD, seizure disorder, and difficulty with ambulation. She reports patient was a transfer from [place]. And prior to that had been attending a clinic in [place]. She reported that overall patient did have difficulty with cognition, including difficulty with processing, aphasia. She found that patient appeared stable on methadone take home dosing, no safety concerns reported. (3) Depression: Status: Acute Code(s): F32.9 - Major depressive disorder, single episode, unspecified Assessment and Plan: Patient did breasts she is experiencing depression. Denied any AH, VH, HI, SI. Patient currently receiving Effexor and Zoloft. No safety concerns regarding any type of self-harm observed or reported. Assessment and Plan: RECOMMENDATIONS: Patient appears unable to receive, retain, and integrate new information at this time, and therefore it is opinion of the typewriter assembler that she currently lacks medical decision making capacity. Greater than 50% of the session was spent on counseling and/or coordination of care Patient educated on: diagnosis, medication risk/benefits, therapeutic strategies and medical condition Informed Consent: does not understand
--- NOTE | 2021-03-24 10:21 | MHC.CM.PN ---
CASE MANAGEMENT ATTEMPTING TO SECURE [facility] SERVICES. RN AWARE AND WILL BE UPDATED WITH PROGRESS
--- NOTE | 2021-03-24 10:22 | PM.DS ---
DS: Providers Provider Date of Service: 03/24/21 Date of admission: 03/21/21 06:51 Date of discharge: 03/24/21 Primary care physician: Nonstaff Physician Consults: 03/21/21 06:54 Consult to Neurology Routine Consulting Provider: [facility] Reason for consultation: confusio, ? 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 quid in it of leftove. She was brought to the ED following what family thought was a seizure episode with post ictal state..Work up in ED including labs, imaging of head were negative and patient was to be discharge? but at that time she seem more confused, agitated and not following command so had repeat imagings of CT head, neck? and abdomen all unremarkable? and ED physican not sure waht is going on at this point and can't send home like this . Whiel she remained in the ED, she had what looks like another seizure and was given ativan followed by Manjinder. She currently sedate although attempting to get? up if stimulated. I am not able to get any direct history from her. I could not reach daughter that she supposedly live by phone. I have no idea what meds she takes, as no med rec available,. Pharmacy records shows that she take Xanax, coumdin, Venlafaxine, sertraline among other. This 55yo F with sz disorder, anxiety/depression, CVA with residual L weakness/slurred speech, hx IE with MV replacement on warfarin, opioid use disorder on methadone 105 mg/d was admitted for seizure activity. It turns out she had not taken levetiracetam for several days. The importance of full adherence with antiepileptic medication was counseled. She was treated with ceftriaxone -> cefuroxime for UTI. INR was therapeutic on warfarin. She was discharged home with VNA services in the care daughter. She should follow up with her primary care doctor in 1 week and was referred to Neurology as an outpatient. Time Spent with Patient Time attestation: Total time spent providing and/or coordinating discharge services: Discharge coordination time: Greater than 30 minutes Quality: Stroke Does the patient have a stroke diagnosis?: No Physical Exam Vital Signs: Vital Signs: Last Vital Signs Temp 97.8 F 03/24/21 07:19 Pulse 74 03/24/21 07:19 Resp 16 03/24/21 07:19 BP 112/76 03/24/21 07:19 Pulse Ox 95 03/24/21 07:19 Body Mass Index 31.7 Gen: in no acute distress HEENT: sclera anicteric, moist mucus membranes Neck: supple Lungs: clear to auscultation bilaterally Heart: mechanical S1 click, regular rate and rhythm, soft holosystolic murmur at apex Abd: soft, non-tender, non-distended Ext: no edema Skin: warm/well-perfused Neuro: alert and oriented x3, mild L-sided weakness s/p prior CVA Psych: restricted affect DS: Data Data Completed and Pending Completed studies during hospitalization [Text1]: Laboratory Results WBC 7.5 X10*3/uL (4.8-10.8) 03/22/21 05:33 RBC 4.66 X10*6/uL (4.20-5.50) 03/22/21 05:33 Hgb 13.8 g/dl (12.0-16.0) 03/22/21 05:33 Hct 40.9 % (37-47) 03/22/21 05:33 MCV 87.8 fL (80-98) 03/22/21 05:33 MCH 29.6 pg (27.0-33.0) 03/22/21 05:33 MCHC 33.7 g/dl (31.0-35.0) 03/22/21 05:33 RDW 15.0 % (11.0-16.0) 03/22/21 05:33 Plt Count 185 X10*3/uL (160-400) 03/22/21 05:33 MPV 10.2 fL (9.4-12.3) 03/22/21 05:33 Immature Gran % (Auto) 0.2 % (0.0-0.4) 03/20/21 17:13 Neut % (Auto) 75.6 % (45-73) H 03/20/21 17:13 Lymph % (Auto) 16.4 % (20-40) L 03/20/21 17:13 [place] % (Auto) 6.7 % (2-11) 03/20/21 17:13 Eos % (Auto) 0.9 % (0-4) 03/20/21 17:13 Baso % (Auto) 0.2 % (0-2) 03/20/21 17:13 Lymph # (Auto) 0.7 X10*3/uL (1.2-4.9) L 03/20/21 17:13 [place] # (Auto) 0.3 X10*3/uL (0.1-1.2) 03/20/21 17:13 Eos # (Auto) 0.0 X10*3/uL (0.0-0.4) 03/20/21 17:13 Baso # (Auto) 0.0 X10*3/uL (0.0-0.2) 03/20/21 17:13 Abs Immat Gran (auto) 0.01 X10*3/uL (0.00-0.03) 03/20/21 17:13 Absolute Neuts (auto) 3.3 X10*3/uL (2.0-8.3) 03/20/21 17:13 Absolute Nucleated RBC 0.000 X10*3/uL (0.0-0.012) 03/22/21 05:33 Nucleated RBC % (auto) 0.0 /100WBC (0.0-0.2) 03/22/21 05:33 PT 30.3 SEC (9.9-13.0) H 03/24/21 05:39 INR 2.6 (0.9-1.1) H 03/24/21 05:39 O2 Saturation 96.0 % 03/21/21 02:03 ABG pH at Pt Temp 7.43 (7.35-7.45) 03/21/21 02:03 ABG pCO2 at Pt Temp 31 mmHg (32-45) L 03/21/21 02:03 ABG pO2 at Pt Temp 82 mmHg (83-108) L 03/21/21 02:03 ABG HCO3 21 mmol/L (22-26) L 03/21/21 02:03 ABG Base Excess (Actual) -1.8 mmol/L 03/21/21 02:03 Sodium 139 mmol/L (135-145) 03/22/21 05:33 Potassium 3.8 mmol/L (3.3-5.1) 03/22/21 05:33 Chloride 110 mmol/L (96-108) H 03/22/21 05:33 Carbon Dioxide 20 mmol/L (22-29) L 03/22/21 05:33 Anion Gap 13 (12-20) 03/22/21 05:33 BUN 13 mg/dL (9-16) 03/22/21 05:33 Creatinine 0.78 mg/dL (0.5-1.4) 03/22/21 05:33 Estim Creat Clear Calc 86.4 03/22/21 05:33 Estimated GFR > 60 03/22/21 05:33 POC Glucose 128 mg/dL (60-115) H 03/21/21 02:20 Random Glucose 102 mg/dL (60-115) 03/22/21 05:33 Lactic Acid 2.3 mmol/L (0.5-2.0) H* 03/21/21 08:40 Lactic Acid Fup @ 2Hr 1.8 mmol/L (0.5-2.0) 03/21/21 11:41 Calcium 8.7 mg/dL (8.4-10.2) 03/22/21 05:33 Magnesium 1.9 mg/dL (1.6-2.6) 03/21/21 08:55 Ammonia 29 umol/L (13-55) 03/21/21 02:33 Lactate Dehydrogenase 353 U/L (122-220) H 03/21/21 08:55 C-Reactive Protein 0.79 mg/dL (< or = 0.50) H 03/21/21 08:55 Procalcitonin 0.02 ng/mL 03/21/21 08:55 TSH 0.91 uIU/mL (0.32-4.0) 03/20/21 17:53 Urine Color YELLOW 03/20/21 19:37 Urine Appearance HAZY 03/20/21 19:37 Urine pH 8.0 (5.0-8.0) 03/20/21 19:37 Ur Specific [place] 1.015 (1.005-1.025) 03/20/21 19:37 Urine Protein TRACE MG/DL (NEG-TRACE) 03/20/21 19:37 Urine Glucose (UA) NEG MG/DL (NEG) 03/20/21 19:37 Urine Ketones NEG MG/DL (NEG) 03/20/21 19:37 Urine Blood NEG (NEG) 03/20/21 19:37 Urine Nitrite NEG (NEG) 03/20/21 19:37 Ur Leukocyte Esterase 1+ (NEG) H 03/20/21 19:37 Urine RBC 0-2 /HPF (0) 03/20/21 19:37 Urine WBC 1-4 /HPF (0-4) 03/20/21 19:37 Ur Squamous Epith Cells 1+ /LPF 03/20/21 19:37 Amorphous Sediment 1+ /LPF 03/20/21 19:37 Urine Bacteria 2+ /LPF 03/20/21 19:37 Urine Mucus 2+ /LPF 03/20/21 19:37 Urine Opiates Screen Not Detected (Not Detect) 03/20/21 19:37 Urine Fentanyl Screen Not Detected (Not Detect) 03/20/21 19:37 Ur Barbiturates Screen Not Detected (Not Detect) 03/20/21 19:37 Ur Phencyclidine Scrn Not Detected (Not Detect) 03/20/21 19:37 Ur Amphetamines Screen Not Detected (Not Detect) 03/20/21 19:37 U Benzodiazepines Scrn POSITIVE (Not Detect) H 03/20/21 19:37 Urine Cocaine Screen Not Detected (Not Detect) 03/20/21 19:37 U Marijuana (THC) Screen Not Detected (Not Detect) 03/20/21 19:37 Ethyl Alcohol < 10 mg/dL 03/21/21 02:32 Respiratory Panel Hernandez See Note 03/21/21 14:11 Adenovirus (Rapid PCR) Not Detected (Not Detect.) 03/21/21 14:11 B.pert (TEM-PCR) Not Detected (Not Detect.) 03/21/21 14:11 B.parapertussis DNA PCR Not Detected (Not Detect.) 03/21/21 14:11 C. pneumoniae DNA (PCR) Not Detected (Not Detect.) 03/21/21 14:11 Coronavirus OC43 (PCR) Not Detected (Not Detect.) 03/21/21 14:11 Coronavirus HKU1 (PCR) Not Detected (Not Detect.) 03/21/21 14:11 Coronavirus 229E (PCR) Not Detected (Not Detect.) 03/21/21 14:11 COVID-19 (CLARITZA) Negative (Negative) 03/20/21 17:06 COVID-19 Clin Com See Note 03/20/21 17:06 Coronavirus NL63 (PCR) Not Detected (Not Detect.) 03/21/21 14:11 Hep Bs Antigen Negative (Negative) 03/22/21 05:33 Hep Bs Antibody NONREACTIVE (Nonreactive) 03/22/21 05:33 Hep B Core Total Ab Nonreactive (Nonreactive) 03/22/21 05:33 Hepatitis C Ab (EIA) Reactive (Nonreactive) H 03/22/21 05:33 HIV 1&2 Ab/P24 Ag 4thGn Nonreactive (Nonreactive) 03/22/21 05:33 Human Metapneumovir PCR Not Detected (Not Detect.) 03/21/21 14:11 Influenza A (RT-PCR) Not Detected (Not Detect.) 03/21/21 14:11 Influenza B (RT-PCR) Not Detected (Not Detect.) 03/21/21 14:11 M. pneumoniae (PCR) Not Detected (Not Detect.) 03/21/21 14:11 Parainfluenza 1 (PCR) Not Detected (Not Detect.) 03/21/21 14:11 Parainfluenza 2 (PCR) Not Detected (Not Detect.) 03/21/21 14:11 Parainfluenza 3 (PCR) Not Detected (Not Detect.) 03/21/21 14:11 Parainfluenza 4 (PCR) Not Detected (Not Detect.) 03/21/21 14:11 RSV (PCR) Not Detected (Not Detect.) 03/21/21 14:11 Entero/Rhino (PCR) Detected (Not Detect.) A 03/21/21 14:11 SARS-CoV-2 RNA (RT-PCR) Not Detected (Not Detect.) 03/21/21 14:11 Impressions Chest X-Ray 03/20/21 17:01 IMPRESSION: No acute intracranial abnormality. Chest one view: HISTORY: Trauma. Heart and mediastinal normal. No mediastinal widening parenchymal disease or pleural abnormality. No ectopic air. No gross rib fracture. IMPRESSION: No acute chest pathology. Abdomen/Pelvis CT 03/21/21 01:19 IMPRESSION: 1. Groundglass opacities noted at both lung bases could be infectious or inflammatory. No dense consolidation. 2. Prominent appearance of the common bile duct without ductal filling defect. No inflammatory changes of the abdomen or pelvis. 3. Prominent fat-containing ventral abdominal wall hernia. Head CT 03/21/21 01:21 IMPRESSION: 1. No acute intracranial finding. No change from recent prior. 2. No acute fracture or malalignment of the cervical spine. Mild degenerative change. Cervical Spine CT 03/21/21 01:23 IMPRESSION: 1. No acute intracranial finding. No change from recent prior. 2. No acute fracture or malalignment of the cervical spine. Mild degenerative change. Chest CT 03/21/21 01:31 IMPRESSION: 1. Groundglass opacities noted at both lung bases could be infectious or inflammatory. No dense consolidation. 2. Prominent appearance of the common bile duct without ductal filling defect. No inflammatory changes of the abdomen or pelvis. 3. Prominent fat-containing ventral abdominal wall hernia. Brain MRI 03/22/21 09:50 IMPRESSION: - There are no acute intracranial findings. No acute infarcts. - There is chronic encephalomalacia and gliosis within the right frontoparietal lobe and there is a chronic infarct within the right occipital lobe. Labs on day of discharge: Laboratory Results - last 24 hr 03/24/21 05:39 PT 30.3 H INR 2.6 H Preliminary micro results at discharge 03/21/21 08:55 Blood Culture - Preliminary Blood - Venous No growth after 48 hours. 03/21/21 08:40 Blood Culture - Preliminary Blood - Venous No growth after 48 hours. Discharge Plan Discharge Patient Disposition: Home, Self-Care Discharge Diagnosis: breakthrough seizure due to medication non-adherence, UTI, tobacco abuse Referrals: Physician,Nonstaff [Physician] - 2 days (Please follow-up with your neurologist on an outpatient basis. Seizure precaution. No driving no activity cell put you in danger have a seizure at that time.) Regino Singh MD [Physician] - 1 Month Discharge Medications: New nicotine 14 mg/24 hr Patch 24 Hour 14 mg transdermal DAILY Qty: 30 RF: 0 cefuroxime axetil 250 mg tablet 250 mg PO BID Qty: 10 RF: 0 Continued atorvastatin 40 mg tablet 1 tab PO BEDTIME RF: 0 venlafaxine 75 mg capsule,extended release 24hr 1 cap PO DAILY RF: 0 alprazolam 1 mg tablet 1 tab PO TID PRN (Reason: Anxiety) RF: 0 metoprolol succinate 50 mg tablet extended release 24 hr 1 tab PO DAILY RF: 0 warfarin 10 mg tablet 1 tab PO DAILY RF: 0 sertraline 100 mg tablet 1 tab PO DAILY RF: 0 levetiracetam 750 mg tablet 1 tab PO BID RF: 0 mirtazapine 15 mg tablet 1 tab PO BEDTIME RF: 0 warfarin 1 mg tablet 1 tab PO DAILY RF: 0 methadone 5 mg Tablet 105 mg PO DAILY RF: 0 Discharge Orders: Discharge Order (Routine); Ordered 03/23/21 Ordered By: Abdifatah Lucia Diet: advance to usual diet Activity on Discharge: As tolerated Stand Alone Forms: Patient Portal Discharge page Care Plan Goals: avoid seizures treat UTI stop smoking Health Concerns: seizures UTI tobacco abuse Plan of Treatment: take levetiracetam [Keppra] 750 mg 2x a day follow up with primary care doctor in 1 week Neurology referral take cefuroxime 250 mg bid x 5 days quit smoking + use nicotine patch to help Assessment: See Discharge Summary Patient Instructions: Epilepsy (ED) Discharge Date/Time: 03/24/21 14:16
--- NOTE | 2021-03-24 11:42 | MHC.CM.PN ---
CALL FROM DAUGHTER, DONALDO ([phone]) WHO REPORTS THAT SHE DOES NOT WANT PATIENT TO HAVE ANY VNA SERVICES YET. REFERRALS MADE AWARE OF THIS. DONALDO ALSO STATES THAT SHE CURRENTLY DOES NOT HAVE A CAR, AND ASKS IF TRANSPORT CAN BE ARRANGED. PER CONVERSATION, [facility] TO BE REQUESTED FOR A 1400 PICKUP AND TRANSPORT TO [address] [place] [address] [place] [address]. RN PRESENT DURING CONVERSATION AND AWARE OF PLAN. WELL LOGGING CAPTAIN ALSO AWARE OF PLAN.
[2021-03-24 11:51] VITALS: BP 119/85; PULSE 102; RESP 20; TEMP 36.4; O2SAT 97
[2021-03-28 12:06] LABS: HCV Log PCR <1.18 NOT DETECTED Log IU/mL (NOT DETECTED); HepC Viral Load <15 NOT DETECTED IU/mL (NOT DETECTED)
== END 2021-03-24 14:16 | disposition home or self-care (01) | DRG 53 ==
LOC: HO.ED 19:36 → HO.EDOVER 03-21 07:06 → HO.S3 03-21 12:40
PROVIDERS: Student in an Organized Health Care Education/Training Program; Admitting Provider Internal Medicine; Emergency Provider Emergency Medicine Emergency Medical Services; PCP Internal Medicine; Visit Provider Family Medicine
DX: G40.909 Epilepsy, unspecified, not intractable, without status epilepticus (principal); F11.20 Opioid dependence, uncomplicated; I69.954 Hemiplegia and hemiparesis following unspecified cerebrovascular disease affecting left non-dominant side; T42.76XA Underdosing of unspecified antiepileptic and sedative-hypnotic drugs, initial encounter; E78.5 Hyperlipidemia, unspecified; F41.9 Anxiety disorder, unspecified; F32.9 Major depressive disorder, single episode, unspecified; N39.0 Urinary tract infection, site not specified; I10 Essential (primary) hypertension; Z95.2 Presence of prosthetic heart valve; Z91.14 Patient's other noncompliance with medication regimen; Z20.822 Contact with and (suspected) exposure to COVID-19; Z79.01 Long term (current) use of anticoagulants; Z79.899 Other long term (current) drug therapy
CPT/HCPCS: 36415; 70450; 70551; 71045; 71250; 72125; 74176; 80048; 80307; 81001; 82077; 82140; 82803; 82947; 83605; 83615; 83735; 84145; 84443; 85025; 85027; 85610; 86140; 86704; 86706; 86803; 87040; 87086; 87340; 87389; 87522; 87633; 87635; 93005; 95816; 96365; 96372; 96375; 97161; 99218; 99285; J0696; J1953; J2060

== ENCOUNTER 2021-03-26 16:09 | Emergency (ER) | payer MEDICAID, SELFPAY ==
--- NOTE | ~2021-03-26 | CT_ITS ---
EXAMINATION: CT HEAD WITHOUT CONTRAST CLINICAL INFORMATION: Headache, on Coumadin. COMPARISON: MR brain dated from 03/22/2021. CT head dated from 03/21/2021. TECHNIQUE: Contiguous axial imaging was performed from the skull base to vertex without intravenous administration of contrast. This CT examination was performed using dose optimization techniques as appropriate, variously including the following: *Automated exposure control *Adjustment of mA and/or kV according to patient size (this includes techniques or standardized protocols for targeted exams where dose is matched to indication/reason for exam; i.e. extremities or head) *Use of iterative reconstruction technique DLP: 712 mGy-cm FINDINGS: There is no evidence of acute intracranial hemorrhage or territorial infarction. No abnormal mass effect or midline shift is seen. Redemonstration of encephalomalacia and gliosis in the right frontoparietal lobe and a chronic infarct in the right occipital lobe. Otherwise, anaya to white matter differentiation is well preserved. No extra-axial fluid collections are identified. The ventricles are normal in size. There is no abnormal attenuation within the brain parenchyma. The osseous structures and soft tissues are normal. The mastoid air cells and visualized portions of the paranasal sinuses are well aerated. CT/CT head/brain wo con IMPRESSION: No acute intracranial pathology. Chronic encephalomalacia and gliosis within the right frontoparietal lobe and a chronic infarct in the right occipital lobe.
[2021-03-26 16:22] VITALS: BP 113/81; PULSE 87; RESP 18; TEMP 36.7; O2SAT 96; BMI 29.2
--- NOTE | 2021-03-26 16:28 | ED.HA ---
HPI - Headache General Chief Complaint: Headache Stated Complaint: headache Time Seen by Provider: 03/26/21 16:18 Source: patient, EMS and old records reviewed Mode of arrival: EMS Limitations: no limitations History of Present Illness MD elicited complaint: other ( I am still confused, the medicine is giving me a headache. ) Pertinent past history: coagulopathy Onset (ago): day(s) (states this has been going on since she was admitted and never got her better) Onset description: gradually Location: temporal Severity: moderate Quality & Timing: aching Exacerbating factors: none Relieving factors: nothing Context: occurred at rest Associated symptoms: confusion Treatments prior to arrival: none Related Data Home Medications Medication Instructions Recorded Confirmed alprazolam 1 mg tablet 1 tab PO TID PRN 03/21/21 03/21/21 atorvastatin 40 mg tablet 1 tab PO BEDTIME 03/21/21 03/21/21 levetiracetam 750 mg tablet 1 tab PO BID 03/21/21 03/21/21 metoprolol succinate 50 mg 1 tab PO DAILY 03/21/21 03/21/21 tablet,extended release 24 hr mirtazapine 15 mg tablet 1 tab PO BEDTIME 03/21/21 03/21/21 sertraline 100 mg tablet 1 tab PO DAILY 03/21/21 03/21/21 venlafaxine 75 mg capsule,extended 1 cap PO DAILY 03/21/21 03/21/21 release 24 hr warfarin 1 mg tablet 1 tab PO DAILY 03/21/21 warfarin 10 mg tablet 1 tab PO DAILY 03/21/21 03/21/21 methadone 5 mg tablet 105 mg PO DAILY 03/22/21 03/22/21 Previous Rx's Medication Instructions Recorded cefuroxime axetil 250 mg tablet 250 mg PO BID #10 tab 03/23/21 nicotine 14 mg/24 hr daily 14 mg TRANSDERMAL DAILY #30 ea 03/23/21 transdermal patch Allergies Allergy/AdvReac Type Severity Reaction Status Date / Time No Known Allergies Allergy Verified 03/21/21 15:25 Review of Systems Review of Systems: Constitutional : No Fever, No Chills, No Fatigue ENT/Mouth : No sore throat, No Rhinorrhea Eyes: No Eye Pain, No Swelling, No Redness Cardiovascular : No Chest Pain, No SOB, No Dyspnea on Exertion Respiratory : No Cough, No Sputum Gastrointestinal : No Nausea, No Vomiting, No Diarrhea, No abdominal Pain Genitourinary : No Dysuria, No Urinary Frequency, No Hematuria, Musculoskeletal : No joint pain, No Myalgias, No Joint Swelling Skin : No Skin Lesions, No rash Neuro : No Weakness, No Numbness, No Dizziness, positive Headache, pos confusion Psych : No Anxiety/Panic, No Depression Heme/Lymph: No Bruising, No Bleeding,No Lymphadenopathy Endocrine : No Polyuria, No Polydipsia All other systems reviewed and are negative [facility] Past Medical History Attestation statement: The following information was validated with the patient. Medical History Anxiety CVA (cerebral vascular accident) Depression Endocarditis High cholesterol Opioid use disorder Seizure Surgical History Mitral valve replaced Social History Social History Household Members: Unknown / Unable to assess Housing: Unknown / Unable to assess Do you presently have visiting nurse or other home services: No (unknown) Unable to assess alcohol history related to: Unknown Alcohol intake: unknown Patient Tobacco Use Status: Tobacco use Unknown Use of substances other than those prescribed or required for medical reasons: No Substance Use Type: Heroin Advance Directives: No Advance Directives Information Provided: No Patient : No service: No Current occupational status: unemployed Physical Exam Vital Signs: Vital Signs: Last Vital Signs Temp 98.8 F 03/26/21 19:29 Pulse 82 03/26/21 19:29 Resp 16 03/26/21 19:29 BP 115/84 03/26/21 19:29 Pulse Ox 95 03/26/21 19:29 Body Mass Index 29.2 Appearance: Alert. Oriented X3. No acute distress. Disheveled Eyes: Pupils equal, round and reactive to light. ENT: Pharynx normal. Neck: Normal inspection. Neck supple. CVS: Normal heart rate and rhythm. Pulses normal. Respiratory: No respiratory distress. Breath sounds normal. Abdomen: Soft and nontender. Skin: Skin warm and dry. Normal skin color. Normal skin turgor. Extremities: No lower extremity edema. No calf ttp Neuro: Oriented X 3. No motor deficit. No sensory deficit. baseline L hand contracted, no aphasia or dysarthria but flat affect and slow to respond Course Course Course Narrative: no acute findings, stable for DC, culture negative from 03/20 on urine patient is at her baseline per notes she is oriented x 3 MDM - Headache MDM Narrative Medical decision making narrative: 56 yo female with hx of MVR on coumadin prior CVA, maintained on methadone, seizures, UTI on cefuroxime at this time c/o confusion and headache today but notes she hasn't felt well and was confused her whole time in the hospital. She saw NEURO and Psych. Her Psychiatry note described her well today saying she is slow to respond, disheveled but of note the patient is oriented x 3 and when I ask her how are you confused she just states cause I am. At this time will repeat labs and head CT, recheck urine. He presentation appears at baseline. Lab Data Result diagrams: 03/26/21 16:59 03/26/21 16:59 Labs: Lab Results 03/26/21 03/26/21 03/26/21 Range/Units 16:59 16:59 16:59 WBC 6.3 (4.8-10.8) X10*3/uL RBC 4.61 (4.20-5.50) X10*6/uL Hgb 13.5 (12.0-16.0) g/dl Hct 40.0 (37-47) % MCV 86.8 (80-98) fL MCH 29.3 (27.0-33.0) pg MCHC 33.8 (31.0-35.0) g/dl RDW 14.6 (11.0-16.0) % Plt Count 215 (160-400) X10*3/uL MPV 10.5 (9.4-12.3) fL Immature Gran % (Auto) 0.3 (0.0-0.4) % Neut % (Auto) 59.2 (45-73) % Lymph % (Auto) 28.5 (20-40) % [place] % (Auto) 9.3 (2-11) % Eos % (Auto) 2.2 (0-4) % Baso % (Auto) 0.5 (0-2) % Lymph # (Auto) 1.8 (1.2-4.9) X10*3/uL [place] # (Auto) 0.6 (0.1-1.2) X10*3/uL Eos # (Auto) 0.1 (0.0-0.4) X10*3/uL Baso # (Auto) 0.0 (0.0-0.2) X10*3/uL Abs Immat Gran (auto) 0.02 (0.00-0.03) X10*3/uL Absolute Neuts (auto) 3.8 (2.0-8.3) X10*3/uL Absolute Nucleated RBC 0.000 (0.0-0.012) X10*3/uL Nucleated RBC % (auto) 0.0 (0.0-0.2) /100WBC PT 33.4 H (9.9-13.0) SEC INR 2.9 H (0.9-1.1) Sodium 141 (135-145) mmol/L Potassium 4.3 (3.3-5.1) mmol/L Chloride 108 (96-108) mmol/L Carbon Dioxide 23 (22-29) mmol/L Anion Gap 14 (12-20) BUN 22 H D (9-16) mg/dL Creatinine 0.86 (0.5-1.4) mg/dL Estim Creat Clear Calc 75.1 Estimated GFR > 60 Random Glucose 104 (60-115) mg/dL Calcium 9.5 D (8.4-10.2) mg/dL Ammonia (13-55) umol/L Urine Color Urine Appearance Urine pH (5.0-8.0) Ur Specific [place] (1.005-1.025) Urine Protein (NEG-TRACE) MG/DL Urine Glucose (UA) (NEG) MG/DL Urine Ketones (NEG) MG/DL Urine Blood (NEG) Urine Nitrite (NEG) Ur Leukocyte Esterase (NEG) Urine RBC (0) /HPF Urine WBC (0-4) /HPF Ur Squamous Epith Cells /LPF Calcium Oxalate Crystal /LPF Urine Bacteria /LPF Urine Mucus /LPF 03/26/21 03/26/21 Range/Units 16:59 18:58 WBC (4.8-10.8) X10*3/uL RBC (4.20-5.50) X10*6/uL Hgb (12.0-16.0) g/dl Hct (37-47) % MCV (80-98) fL MCH (27.0-33.0) pg MCHC (31.0-35.0) g/dl RDW (11.0-16.0) % Plt Count (160-400) X10*3/uL MPV (9.4-12.3) fL Immature Gran % (Auto) (0.0-0.4) % Neut % (Auto) (45-73) % Lymph % (Auto) (20-40) % [place] % (Auto) (2-11) % Eos % (Auto) (0-4) % Baso % (Auto) (0-2) % Lymph # (Auto) (1.2-4.9) X10*3/uL [place] # (Auto) (0.1-1.2) X10*3/uL Eos # (Auto) (0.0-0.4) X10*3/uL Baso # (Auto) (0.0-0.2) X10*3/uL Abs Immat Gran (auto) (0.00-0.03) X10*3/uL Absolute Neuts (auto) (2.0-8.3) X10*3/uL Absolute Nucleated RBC (0.0-0.012) X10*3/uL Nucleated RBC % (auto) (0.0-0.2) /100WBC PT (9.9-13.0) SEC INR (0.9-1.1) Sodium (135-145) mmol/L Potassium (3.3-5.1) mmol/L Chloride (96-108) mmol/L Carbon Dioxide (22-29) mmol/L Anion Gap (12-20) BUN (9-16) mg/dL Creatinine (0.5-1.4) mg/dL Estim Creat Clear Calc Estimated GFR Random Glucose (60-115) mg/dL Calcium (8.4-10.2) mg/dL Ammonia 34 (13-55) umol/L Urine Color YELLOW Urine Appearance HAZY Urine pH 6.0 (5.0-8.0) Ur Specific [place] >= 1.030 H (1.005-1.025) Urine Protein NEG (NEG-TRACE) MG/DL Urine Glucose (UA) NEG (NEG) MG/DL Urine Ketones NEG (NEG) MG/DL Urine Blood TRACE (NEG) Urine Nitrite NEG (NEG) Ur Leukocyte Esterase NEG (NEG) Urine RBC 0-2 (0) /HPF Urine WBC 0 (0-4) /HPF Ur Squamous Epith Cells 1+ /LPF Calcium Oxalate Crystal 2+ /LPF Urine Bacteria NONE /LPF Urine Mucus 1+ /LPF Discharge Plan Discharge Clinical Impression: Weakness, Headache Patient Disposition: Home, Self-Care Instructions: Acute Headache (ED), Weakness (ED) Additional Instructions: return to ED for any worsening symptoms or concerns INR 2.9 Prescriptions: No Action atorvastatin 40 mg tablet 1 tab PO BEDTIME RF: 0 venlafaxine 75 mg capsule,extended release 24hr 1 cap PO DAILY RF: 0 alprazolam 1 mg tablet 1 tab PO TID PRN (Reason: Anxiety) RF: 0 metoprolol succinate 50 mg tablet extended release 24 hr 1 tab PO DAILY RF: 0 warfarin 10 mg tablet 1 tab PO DAILY RF: 0 sertraline 100 mg tablet 1 tab PO DAILY RF: 0 levetiracetam 750 mg tablet 1 tab PO BID RF: 0 mirtazapine 15 mg tablet 1 tab PO BEDTIME RF: 0 warfarin 1 mg tablet 1 tab PO DAILY RF: 0 methadone 5 mg Tablet 105 mg PO DAILY RF: 0 nicotine 14 mg/24 hr Patch 24 Hour 14 mg transdermal DAILY Qty: 30 RF: 0 cefuroxime axetil 250 mg tablet 250 mg PO BID Qty: 10 RF: 0 Referrals: Physician,Nonstaff [Primary Care Provider] - 2 days Interventions: ED Discharge Assessment Last Done: 03/26/21 21:40 Discharge Date/Time: 03/26/21 21:41
[2021-03-26 17:04] LABS: MANUAL DIFF FLAG NO
[2021-03-26 17:05] LABS: Basophils Percent Auto 0.5 % (0-2); Eosinophils Absolute Auto 0.1 X10*3/uL (0.0-0.4); Eosinophils Percent Auto 2.2 % (0-4); Hemoglobin 13.5 g/dl (12.0-16.0); Imm Gran Abs Auto 0.02 X10*3/uL (0.00-0.03); Imm Gran Pct Auto 0.3 % (0.0-0.4); Lymphocytes Absolute Auto 1.8 X10*3/uL (1.2-4.9); Lymphocytes Percent Auto 28.5 % (20-40); Mean Corpuscular HGB Conc 33.8 g/dl (31.0-35.0); Mean Corpuscular Hemoglobin 29.3 pg (27.0-33.0); Mean Corpuscular Volume 86.8 fL (80-98); Mean Platelet Volume 10.5 fL (9.4-12.3); Monocytes Absolute Auto 0.6 X10*3/uL (0.1-1.2); Monocytes Percent Auto 9.3 % (2-11); Neutrophils Absolute Auto 3.8 X10*3/uL (2.0-8.3); Neutrophils Percent Auto 59.2 % (45-73); Platelet Count 215 X10*3/uL (160-400); Red Blood Count 4.61 X10*6/uL (4.20-5.50); Red Cell Distribution Width 14.6 % (11.0-16.0); White Blood Count 6.3 X10*3/uL (4.8-10.8)
[2021-03-26 17:12] LABS: INTERNATIONAL NORM RATIO 2.9 (0.9-1.1); Prothrombin Time 33.4 SEC (9.9-13.0)
[2021-03-26 17:15] LABS: Ammonia 34 umol/L (13-55)
[2021-03-26 17:20] LABS: Anion Gap 14 (12-20); Blood Urea Nitrogen 22 mg/dL (9-16); Calcium 9.5 mg/dL (8.4-10.2); Carbon Dioxide 23 mmol/L (22-29); Chloride 108 mmol/L (96-108); Creatinine Clr Calc Pharmacy 75.1; Estimated Glomerular Filt Rate > 60; Glucose Random 104 mg/dL (60-115); Potassium 4.3 mmol/L (3.3-5.1); Sodium 141 mmol/L (135-145)
[2021-03-26] MEDS: Acetaminophen 325 MG TABLET 650 MG PO (17:38)
[2021-03-26 17:40] VITALS: BP 112/84; PULSE 91; RESP 15; O2SAT 98
[2021-03-26 18:40] VITALS: BP 101/71; PULSE 76; RESP 15; O2SAT 92
[2021-03-26 19:13] VITALS: RESP 16
[2021-03-26 19:16] LABS: Appearance Urine HAZY; Color Urine YELLOW; Glucose Urine UA NEG (NEG); Leukocyte Esterase Urine NEG (NEG); Nitrite Urine NEG (NEG); Specific Gravity - Urine >= 1.030 (1.005-1.025); UACC Culture Trigger NO; Urine Blood TRACE (NEG); Urine Ketones NEG (NEG); Urine Protein NEG (NEG-TRACE)
[2021-03-26 19:23] LABS: Calcium Oxalate Crystals Urine 2+ /LPF; Mucus Urine 1+ /LPF; RBC Urine 0-2 /HPF (0); Squamous Epithelial Cell Urine 1+ /LPF; WBC Urine 0 /HPF (0-4)
[2021-03-26] MEDS: Nicotine 21 MG PATCH.TD24 TRANSDERMA (19:23)
[2021-03-26 19:29] VITALS: BP 115/84; PULSE 82; RESP 16; TEMP 37.1; O2SAT 95
--- NOTE | 2021-03-26 20:03 | PC.NURSE ---
Addendum entered by Maira Varela 03/26/21 20:11: PREVIOUS NOTE WRITTEN BY KENNEDY DAVIS RN Original Note: CARLOS VELAZQUEZ MADE THIS NURSE AWARE OF PATIENTS DAUGHTER ON THE PHONE WHO WAS VERY UPSET, YELLING, STATED SHE WANTED TO SPEAK TO THE CHARGE NURSE, AND MAKE A COMPLAINT BECAUSE WE WERE TRIGGERING HER TRAUMA HISTORY BY HAVING HER MOTHER CALL HER TO ATTEMPT TO OBTAIN A RIDE HOME. THIS RN HAS PREVIOUS KNOWLEDGE OF THIS PATIENTS DAUGHTER AND HER INTERACTIONS W/STAFF SO KANDI GONZALEZLOSS CONTROL CONSULTANT WAS PRESENT FOR THIS CALL. I LISTENED TO THE PATIENTS DAUGHTERS CONCERNS AND TRIED TO EXPLAIN WE ALWAYS TRY TO INCORPORATE FAMILY PARTICIPATION IN FACILITATING TRANSPORT HOME FOR OUR PATIENTS, OUR INTENTION NOT TO TRIGGER HER BUT PROVIDE QUALITY PATIENT CENTERED CARE TO HER MOTHER. tHE PATIENTS DAUGHTER WAS VERY VERBALLY ABUSIVE DURING OUR INTERACTION, YELLING, INTERRUPTING, THREATENING, AT ONE POINT I HAD TO INTERRUPT AND STATE IF THIS WAS HOW THE INTERACTION WAS GOING TO CONTINUE WE WOULD NEED TO END THE PHONE CALL AT THIS TIME. FIRST NAMES, W/LAST INITIAL WAS PROVIDED UPON REQUEST I WANT TO MAKE SURE I AM SPELLING IT CORRECTLY WHEN I REPORT YOUR ASS THE CONVERSATION ENDED WITH THE PATIENTS DAUGHTER STATING SHE HAD NO WAY OF PROVIDING ASSISTANCE TO GET HER MOTHER HOME, AND THIS RN STATING SHE WOULD WORK WITH THE EQUIPMENT MECHANIC TO HELP PROVIDE TRANSPORTATION.
--- NOTE | 2021-03-26 21:16 | PC.NURSE ---
Patient's daughter called demanding to cancel the ambulance previously booked for patient stating i found a stranger on facebook to pick her up and demanded patient be brought outside. Daughter began yelling and becoming verbally abusive when I stated I needed to confirm with patient RN that patient was of sound body and mind to sign for herself, as well as safely get to ride picking her up.
== END 2021-03-26 21:41 | disposition home or self-care (01) ==
PROVIDERS: Emergency Provider Emergency Medicine
DX: R51.9 Headache, unspecified (principal); R53.1 Weakness; F11.20 Opioid dependence, uncomplicated; Z86.73 Personal history of transient ischemic attack (TIA), and cerebral infarction without residual deficits; Z95.2 Presence of prosthetic heart valve; Z79.01 Long term (current) use of anticoagulants; Z79.899 Other long term (current) drug therapy
CPT/HCPCS: 36415; 70450; 80048; 81001; 82140; 85025; 85610; 99284; 99285

== ENCOUNTER 2021-03-31 12:34 | Emergency (ER) | payer MEDICAID, SELFPAY ==
[2021-03-31 12:51] VITALS: BP 95/68; PULSE 81; RESP 16; TEMP 36.5; O2SAT 96; BMI 31.4
--- NOTE | 2021-03-31 13:35 | ED.HA ---
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 endocarditis with mitral valve replacements currently on Coumadin presents to the emergency department with her daughter with concerns of memory loss and headache. According the patient she states that she feels like she has been forgetting things, and feeling more confused than usual. She states that she keeps thinking she just moved from [place], which did not occur recently. She also feels like she is extremely slow and foggy latley, particularly her speech. She also mentions a frontal headache, she states it has been constant over the past 3 days, and she states has been progressively worsening, she describes it as sharp pain. She states she has had similar headaches in the past. Her daughter states that she had a stroke about 10 years ago down, which has caused her to have weakness to her left hand side. Daughter also mentions that the patient's father had early-onset dementia at the age of 57. Related Data Home Medications Medication Instructions Recorded Confirmed alprazolam 1 mg tablet 1 tab PO TID PRN 03/21/21 03/21/21 atorvastatin 40 mg tablet 1 tab PO BEDTIME 03/21/21 03/21/21 levetiracetam 750 mg tablet 1 tab PO BID 03/21/21 03/21/21 metoprolol succinate 50 mg 1 tab PO DAILY 03/21/21 03/21/21 tablet,extended release 24 hr mirtazapine 15 mg tablet 1 tab PO BEDTIME 03/21/21 03/21/21 sertraline 100 mg tablet 1 tab PO DAILY 03/21/21 03/21/21 venlafaxine 75 mg capsule,extended 1 cap PO DAILY 03/21/21 03/21/21 release 24 hr warfarin 1 mg tablet 1 tab PO DAILY 03/21/21 warfarin 10 mg tablet 1 tab PO DAILY 03/21/21 03/21/21 methadone 5 mg tablet 105 mg PO DAILY 03/22/21 03/22/21 Previous Rx's Medication Instructions Recorded cefuroxime axetil 250 mg tablet 250 mg PO BID #10 tab 03/23/21 nicotine 14 mg/24 hr daily 14 mg TRANSDERMAL DAILY #30 ea 03/23/21 transdermal patch Allergies Allergy/AdvReac Type Severity Reaction Status Date / Time No Known Allergies Allergy Verified 03/21/21 15:25 Review of Systems Neurologic: Reports Abnormal speech present (slow speech. ) [facility] Past Medical History Medical History Anxiety CVA (cerebral vascular accident) Depression Endocarditis High cholesterol Opioid use disorder Seizure Surgical History Mitral valve replaced Social History Social History Household Members: Unknown / Unable to assess Housing: Unknown / Unable to assess Do you presently have visiting nurse or other home services: No (unknown) Unable to assess alcohol history related to: Unknown Alcohol intake: unknown Patient Tobacco Use Status: Tobacco use Unknown Substance Use Type: Heroin Advance Directives: No Advance Directives Information Provided: Yes Patient : Yes service: No Current occupational status: unemployed Physical Exam Vital Signs: Vital Signs: Last Vital Signs Temp 97.9 F 03/31/21 14:11 Pulse 75 03/31/21 14:11 Resp 14 03/31/21 14:11 BP 92/61 03/31/21 14:11 Pulse Ox 96 03/31/21 14:11 Body Mass Index 31.4 Const: General: cooperative Nutritional Appearance: average body habitus Orientation/consciousness: oriented to person, oriented to place and oriented to time Limitations: no limitations HENMT: Head: Yes normal to inspection Mouth: Normal oral and palatal mucosa present Eyes: General: appearance normal, both eyes and all related structures Pupils: Equal, round and reactive pupils present EOM: EOMs intact bilaterally Neck: Neck: Yes normal visual inspection and Yes full ROM Thyroid: Thyroid normal Lymphatic: no lymphadenopathy noted Resp: Effort & Inspection: normal respiratory effort and able to speak in complete sentences Auscultation: clear to auscultation bilaterally Cardio: Palpation: normal PMI Rate: regular rate Rhythm: regular rhythm and abnormal rhythm Heart sounds: S1 normal heart sound present, S2 normal heart sound present and Abnormal heart opening sounds (atrificial mitral valve click ) GI: Inspection: Yes normal to inspection Palpation (GI): Soft to palpation and nontender : General: Yes no CVA tenderness Back/Spine/Pelvis: Back: no CVA tenderness Neuro: General: oriented to person, oriented to place and oriented to time Cranial nerves: Yes CN's II-XII intact bilaterally and Yes Equal, round and reactive pupils present Cognition (Neuro): normal cognition Speech: Abnormal speech present (slow speech. ) Gait exam (Neuro): Normal gait present Motor exam (neuro): strength not 5/5 throughout (5/5 to RUE&RLE 4/5 strength to LUE &LLE) Sensory Exam: Normal double simultaneous stimulation for sensation Coordination: [id number] test normal and [id number] test normal Extrem: General: Yes normal to inspection, Yes full ROM and Yes no pedal edema Psych: Mental Status: mental status grossly normal Course Reevaluation(s) Reevaluation #1: Patient has been given tylenol for headache.There are still labs pending however, they will not come in today. For this reason they will be called only with + results. Patient is safe for D/C home with daughter and outpatient follow up with neurology and PCP. 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 endocarditis with mitral valve replacements currently on Coumadin presents to the emergency department with her daughter with concerns of memory loss and headache. Upon physical examination there is generalized weakness to left side, this is patient's baseline. She is able to do [id number], and khbkbe-[id number] without difficulty, unlikely this is a cerebellar infarct. Patient is able to answer questions appropriately and she is alert and oriented x3. No neurologic deficits noted. An artificial mitral vlave click is noted over aortic area. Speech is clear, but slow. To notes this patient was recently discharged from the hospital on 03/24/2021 after having grand mal seizures. Upon discharge and throughout her entire stay at the hospital she had left-sided weakness, and slow speech. These changes are not new when looking at previous notes notes. During this stay at the hospital she had a full workup which included CT scan of head and chest, and MRI of the brain, showed no acute finding or signs of stroke. She was evaluated by Neurology and Psychiatry and as stated in previous notes her psychiatrist states that she is slow to respond, but alert and oriented x3. She also presented to the ED on 03/26/2021 with complaints of a headache and confusion, at this time on her labs were within normal limits, is appeared to be just a typical headache. Plan at this time is to obtain basic labs, urine tox screen, Lyme, thyroid test, urine, and vitamin B12 and folate. Possible she has early dementia Lab Data Result diagrams: 03/31/21 14:54 03/31/21 14:54 Labs: Lab Results 03/31/21 03/31/21 03/31/21 Range/Units 14:54 14:54 14:54 WBC 4.3 L (4.8-10.8) X10*3/uL RBC 4.47 (4.20-5.50) X10*6/uL Hgb 13.2 (12.0-16.0) g/dl Hct 39.1 (37-47) % MCV 87.5 (80-98) fL MCH 29.5 (27.0-33.0) pg MCHC 33.8 (31.0-35.0) g/dl RDW 14.3 (11.0-16.0) % Plt Count 154 L D (160-400) X10*3/uL MPV 11.2 (9.4-12.3) fL Immature Gran % (Auto) 1.6 H (0.0-0.4) % Neut % (Auto) 57.0 (45-73) % Lymph % (Auto) 29.1 (20-40) % [place] % (Auto) 10.2 (2-11) % Eos % (Auto) 1.6 (0-4) % Baso % (Auto) 0.5 (0-2) % Lymph # (Auto) 1.3 (1.2-4.9) X10*3/uL [place] # (Auto) 0.4 (0.1-1.2) X10*3/uL Eos # (Auto) 0.1 (0.0-0.4) X10*3/uL Baso # (Auto) 0.0 (0.0-0.2) X10*3/uL Abs Immat Gran (auto) 0.07 H (0.00-0.03) X10*3/uL Absolute Neuts (auto) 2.5 (2.0-8.3) X10*3/uL Absolute Nucleated RBC 0.000 (0.0-0.012) X10*3/uL Nucleated RBC % (auto) 0.0 (0.0-0.2) /100WBC Sodium 139 (135-145) mmol/L Potassium 4.9 (3.3-5.1) mmol/L Chloride 107 (96-108) mmol/L Carbon Dioxide 22 (22-29) mmol/L Anion Gap 15 (12-20) BUN 14 (9-16) mg/dL Creatinine 0.83 (0.5-1.4) mg/dL Estim Creat Clear Calc 80.8 Estimated GFR > 60 Random Glucose 82 (60-115) mg/dL Calcium 9.1 (8.4-10.2) mg/dL Total Bilirubin 0.4 (0.0-1.0) mg/dL AST 28 (5-31) U/L ALT 19 (0-31) U/L Alkaline Phosphatase 107 (39-117) U/L Total Protein 7.1 (6.5-8.0) g/dL Albumin 4.0 (3.5-5.0) g/dL Vitamin B12 Cancelled Folate Cancelled TSH 1.31 (0.32-4.0) uIU/mL Urine Color Urine Appearance Urine pH (5.0-8.0) Ur Specific [place] (1.005-1.025) Urine Protein (NEG-TRACE) MG/DL Urine Glucose (UA) (NEG) MG/DL Urine Ketones (NEG) MG/DL Urine Blood (NEG) Urine Nitrite (NEG) Ur Leukocyte Esterase (NEG) Urine Opiates Screen (Not Detect) Urine Fentanyl Screen (Not Detect) Ur Barbiturates Screen (Not Detect) Ur Phencyclidine Scrn (Not Detect) Ur Amphetamines Screen (Not Detect) U Benzodiazepines Scrn (Not Detect) Urine Cocaine Screen (Not Detect) U Marijuana (THC) Screen (Not Detect) Lyme Screen IgG & IgM Lyme Progressive Test 03/31/21 03/31/21 03/31/21 Range/Units 14:54 15:54 15:55 WBC (4.8-10.8) X10*3/uL RBC (4.20-5.50) X10*6/uL Hgb (12.0-16.0) g/dl Hct (37-47) % MCV (80-98) fL MCH (27.0-33.0) pg MCHC (31.0-35.0) g/dl RDW (11.0-16.0) % Plt Count (160-400) X10*3/uL MPV (9.4-12.3) fL Immature Gran % (Auto) (0.0-0.4) % Neut % (Auto) (45-73) % Lymph % (Auto) (20-40) % [place] % (Auto) (2-11) % Eos % (Auto) (0-4) % Baso % (Auto) (0-2) % Lymph # (Auto) (1.2-4.9) X10*3/uL [place] # (Auto) (0.1-1.2) X10*3/uL Eos # (Auto) (0.0-0.4) X10*3/uL Baso # (Auto) (0.0-0.2) X10*3/uL Abs Immat Gran (auto) (0.00-0.03) X10*3/uL Absolute Neuts (auto) (2.0-8.3) X10*3/uL Absolute Nucleated RBC (0.0-0.012) X10*3/uL Nucleated RBC % (auto) (0.0-0.2) /100WBC Sodium (135-145) mmol/L Potassium (3.3-5.1) mmol/L Chloride (96-108) mmol/L Carbon Dioxide (22-29) mmol/L Anion Gap (12-20) BUN (9-16) mg/dL Creatinine (0.5-1.4) mg/dL Estim Creat Clear Calc Estimated GFR Random Glucose (60-115) mg/dL Calcium (8.4-10.2) mg/dL Total Bilirubin (0.0-1.0) mg/dL AST (5-31) U/L ALT (0-31) U/L Alkaline Phosphatase (39-117) U/L Total Protein (6.5-8.0) g/dL Albumin (3.5-5.0) g/dL Vitamin B12 Folate TSH (0.32-4.0) uIU/mL Urine Color YELLOW Urine Appearance CLEAR Urine pH 7.0 (5.0-8.0) Ur Specific [place] 1.010 (1.005-1.025) Urine Protein NEG (NEG-TRACE) MG/DL Urine Glucose (UA) NEG (NEG) MG/DL Urine Ketones NEG (NEG) MG/DL Urine Blood NEG (NEG) Urine Nitrite NEG (NEG) Ur Leukocyte Esterase NEG (NEG) Urine Opiates Screen Not Detected (Not Detect) Urine Fentanyl Screen Not Detected (Not Detect) Ur Barbiturates Screen Not Detected (Not Detect) Ur Phencyclidine Scrn Not Detected (Not Detect) Ur Amphetamines Screen Not Detected (Not Detect) U Benzodiazepines Scrn POSITIVE H (Not Detect) Urine Cocaine Screen Not Detected (Not Detect) U Marijuana (THC) Screen Not Detected (Not Detect) Lyme Screen IgG & IgM Cancelled Lyme Progressive Test Cancelled Discharge Plan Discharge Clinical Impression: Memory changes Headache Qualifiers: Headache type: unspecified Headache chronicity pattern: unspecified pattern Intractability: not intractable Qualified Code(s): R51.9 - Headache, unspecified Patient Disposition: Home, Self-Care Instructions: Acute Headache (ED) Additional Instructions: Follow-up with primary care provider this week I have attached information about how to reach out to our neurologist, to schedule an appointment There are laboratory studies pending, you will be called only if there are abnormal results. You can take Tylenol for your headaches are home Return to the emergency department with new or worsening symptoms Prescriptions: No Action atorvastatin 40 mg tablet 1 tab PO BEDTIME RF: 0 venlafaxine 75 mg capsule,extended release 24hr 1 cap PO DAILY RF: 0 alprazolam 1 mg tablet 1 tab PO TID PRN (Reason: Anxiety) RF: 0 metoprolol succinate 50 mg tablet extended release 24 hr 1 tab PO DAILY RF: 0 warfarin 10 mg tablet 1 tab PO DAILY RF: 0 sertraline 100 mg tablet 1 tab PO DAILY RF: 0 levetiracetam 750 mg tablet 1 tab PO BID RF: 0 mirtazapine 15 mg tablet 1 tab PO BEDTIME RF: 0 warfarin 1 mg tablet 1 tab PO DAILY RF: 0 methadone 5 mg Tablet 105 mg PO DAILY RF: 0 nicotine 14 mg/24 hr Patch 24 Hour 14 mg transdermal DAILY Qty: 30 RF: 0 cefuroxime axetil 250 mg tablet 250 mg PO BID Qty: 10 RF: 0 Referrals: Regino Singh MD [Physician] - 1 day Interventions: ED Discharge Assessment Last Done: 03/31/21 16:28
[2021-03-31 14:11] VITALS: BP 92/61; PULSE 75; RESP 14; TEMP 36.6; O2SAT 96
[2021-03-31 15:01] LABS: MANUAL DIFF FLAG NO
[2021-03-31 15:04] LABS: Basophils Percent Auto 0.5 % (0-2); Eosinophils Absolute Auto 0.1 X10*3/uL (0.0-0.4); Eosinophils Percent Auto 1.6 % (0-4); Hematocrit 39.1 % (37-47); Hemoglobin 13.2 g/dl (12.0-16.0); Imm Gran Abs Auto 0.07 X10*3/uL (0.00-0.03); Imm Gran Pct Auto 1.6 % (0.0-0.4); Lymphocytes Absolute Auto 1.3 X10*3/uL (1.2-4.9); Lymphocytes Percent Auto 29.1 % (20-40); Mean Corpuscular HGB Conc 33.8 g/dl (31.0-35.0); Mean Corpuscular Hemoglobin 29.5 pg (27.0-33.0); Mean Corpuscular Volume 87.5 fL (80-98); Mean Platelet Volume 11.2 fL (9.4-12.3); Monocytes Absolute Auto 0.4 X10*3/uL (0.1-1.2); Monocytes Percent Auto 10.2 % (2-11); Neutrophils Absolute Auto 2.5 X10*3/uL (2.0-8.3); Platelet Count 154 X10*3/uL (160-400); Red Blood Count 4.47 X10*6/uL (4.20-5.50); Red Cell Distribution Width 14.3 % (11.0-16.0); White Blood Count 4.3 X10*3/uL (4.8-10.8)
[2021-03-31 15:32] LABS: Alanine Aminotransferase 19 U/L (0-31); Alkaline Phosphatase 107 U/L (39-117); Anion Gap 15 (12-20); Aspartate Amino Transferase 28 U/L (5-31); Bilirubin Total 0.4 mg/dL (0.0-1.0); Blood Urea Nitrogen 14 mg/dL (9-16); Calcium 9.1 mg/dL (8.4-10.2); Carbon Dioxide 22 mmol/L (22-29); Chloride 107 mmol/L (96-108); Creatinine Clr Calc Pharmacy 80.8; Estimated Glomerular Filt Rate > 60; Glucose Random 82 mg/dL (60-115); Potassium 4.9 mmol/L (3.3-5.1); Sodium 139 mmol/L (135-145); Total Protein 7.1 g/dL (6.5-8.0)
[2021-03-31 15:48] LABS: Thyroid Stimulating Hormone 1.31 uIU/mL (0.32-4.0)
[2021-03-31] MEDS: Acetaminophen 325 MG TABLET 650 MG PO (15:56)
[2021-03-31 16:01] LABS: Appearance Urine CLEAR; Color Urine YELLOW; Glucose Urine UA NEG (NEG); Leukocyte Esterase Urine NEG (NEG); Nitrite Urine NEG (NEG); Urine Blood NEG (NEG); Urine Ketones NEG (NEG); Urine Protein NEG (NEG-TRACE)
[2021-03-31 16:19] LABS: Amphetamine Screen Urine Not Detected (Not Detect); Barbiturates, Urine Not Detected (Not Detect); Benzodiazepines Screen Urine POSITIVE (Not Detect); Cannabinoid Screen Urine Not Detected (Not Detect); Cocaine Screen Urine Not Detected (Not Detect); Fentanyl, urine Not Detected (Not Detect); Opiate Screen Urine Not Detected (Not Detect); Phencyclidine Screen Urine Not Detected (Not Detect)
[2021-03-31 17:11] LABS: Folate 15.8 ng/mL (> or = 4.0); Vitamin B12 573 pg/mL (200-900)
[2021-04-01 08:42] LABS: Lyme Abs Screen <0.90 index
== END 2021-03-31 16:31 | disposition home or self-care (01) ==
PROVIDERS: Emergency Provider Internal Medicine
DX: R51.9 Headache, unspecified (principal); R41.3 Other amnesia; G40.909 Epilepsy, unspecified, not intractable, without status epilepticus; I69.354 Hemiplegia and hemiparesis following cerebral infarction affecting left non-dominant side; I69.328 Other speech and language deficits following cerebral infarction; F11.20 Opioid dependence, uncomplicated; Z95.2 Presence of prosthetic heart valve; Z79.01 Long term (current) use of anticoagulants; Z79.899 Other long term (current) drug therapy
CPT/HCPCS: 36415; 80053; 80307; 81003; 82607; 82746; 84443; 85025; 86617; 86618; 99284

== ENCOUNTER 2021-09-05 13:07 | Emergency (ER) | payer OTHER, SELFPAY ==
--- NOTE | ~2021-09-05 | CT_ITS ---
EXAMINATION: CT HEAD WITHOUT CONTRAST CT FACIAL BONES WITHOUT CONTRAST CLINICAL INFORMATION: Fall. Right-sided orbital trauma. COMPARISON: CT head from 03/26/2021. MRI from 03/22/2021. TECHNIQUE: Imaging was performed from the skull base to vertex without intravenous administration of contrast. In addition, helical noncontrast CT imaging was acquired through the facial bones and source images were reviewed along with axial reconstructions and sagittal and coronal MPRs. This CT examination was performed using dose optimization techniques as appropriate, variously including the following: *Automated exposure control. *Adjustment of mA and/or kV according to patient size (this includes techniques or standardized protocols for targeted exams where dose is matched to indication/reason for exam; i.e. extremities or head). *Use of iterative reconstruction technique. DLP: 1088 mGy-cm FINDINGS: Head: There is no evidence of acute intracranial hemorrhage or edematous territorial infarction. Chronic encephalomalacia of the right frontoparietal lobes. Otherwise, there are a few foci of hypoattenuation in the periventricular and deep white matter most commonly seen with mild microangiopathy. Armando-white matter differentiation is preserved. The ventricles are normal in size and configuration. No evidence for obstructive hydrocephalus. No abnormal mass effect or midline shift. No extra-axial fluid collections. No acute soft tissue or osseous abnormalities. The mastoid air cells and middle ear cavities remain well aerated. Moderate degenerative arthropathy of the left temporomandibular joint. Maxillofacial Bones: No evidence of maxillofacial bone fractures. The zygomatic arches remain intact. No nasal bone fracture. The nasal septum remains midline. No evidence of mandibular or maxillary fracture. The mandibular condyles remain well-seated in their respective temporal articular grooves. Mild right-sided perivertebral edema. No demonstrated associated osseous abnormalities. Normal appearance of the intraconal and extraconal fat. No evidence of traumatic injury to the extraocular musculature or globes. Mild mucosal thickening of the paranasal sinuses. Mild leftward nasal septal deviation with spurring. No layering fluid collections. The patient is edentulous. CT/CT facial bones wo con IMPRESSION: 1. No evidence of acute intracranial hemorrhage or edematous territorial infarction. 2. Chronic encephalomalacia of the right frontoparietal lobes. 3. No evidence of acute fracture of the maxillofacial bones. Mild right periorbital edema/hematoma. No demonstrated associated acute traumatic injuries of the orbits.
--- NOTE | 2021-09-05 13:16 | ED_ITS ---
HPI - Fall General Chief Complaint: Fall Stated Complaint: fall Time Seen by Provider: 09/05/21 13:11 Source: patient, EMS and old records reviewed Mode of arrival: EMS Limitations: no limitations History of Present Illness HPI Narrative: 56 y/o female with history of seizure disorder, hx IVDA on methadone, hx endo carditis s/p mitral valve replacement on Coumadin, hx CVA with residual left sided weakness, HLD who presents to the ER for evaluation after she fell out of bed this morning and hit her head on the nightstand at 7am today. Patient reports accidentally rolling out of bed and hitting the right side of her head on the nightstand. It took her a little while to get up and back into bed but she denies being on the ground for a prolonged amount of time. She did not lose consciousness. She denies any other injuries. She went back to sleep and her daughter found her early this afternoon with dried blood on the right side of her face so she called 911. Patient denies any headache or neck pain. She has some pain above her right eye where she struck her head. She states she did not take her Keppra this morning but reports compliance up until this morning. She denies any known seizure this morning. She denies incontinence or tongue biting. She wants to go home. complaint: fall Onset (ago): hour(s) Fall from: out of bed Fall witnessed: no Place fall occurred: home Loss of consciousness: none Prolonged down time: unclear Symptoms prior to fall: none Location of injury: head and face Severity: mild Severity scale (1-10): 3 Quality: aching Associated symptoms (after fall): denies Related Data Home Medications Medication Instructions Recorded Confirmed alprazolam 1 mg tablet 1 tab PO TID PRN 03/21/21 09/05/21 atorvastatin 40 mg tablet 1 tab PO BEDTIME 03/21/21 09/05/21 levetiracetam 750 mg tablet 1 tab PO BID 03/21/21 09/05/21 metoprolol succinate 50 mg 1 tab PO DAILY 03/21/21 09/05/21 tablet,extended release 24 hr mirtazapine 15 mg tablet 1 tab PO BEDTIME 03/21/21 09/05/21 sertraline 100 mg tablet 1 tab PO DAILY 03/21/21 09/05/21 venlafaxine 75 mg capsule,extended 1 cap PO DAILY 03/21/21 09/05/21 release 24 hr warfarin 10 mg tablet 1 tab PO Q OTHER DAY 03/21/21 09/05/21 methadone 5 mg tablet 104 mg PO DAILY 03/22/21 09/05/21 sennosides 8.6 mg tablet (senna) 2 cap PO BEDTIME PRN 09/05/21 09/05/21 warfarin 4 mg tablet 1 tab PO Q OTHER DAY 09/05/21 09/05/21 warfarin 5 mg tablet 1 tab PO Q OTHER DAY 09/05/21 09/05/21 Previous Rx's Medication Instructions Recorded nicotine 14 mg/24 hr daily 14 mg TRANSDERMAL DAILY #30 ea 03/23/21 transdermal patch Allergies Allergy/AdvReac Type Severity Reaction Status Date / Time No Known Allergies Allergy Verified 03/21/21 15:25 Review of Systems Review of Systems: Constitutional: No Fever, No Chills ENT/Mouth: No sore throat, No Rhinorrhea, No Swallowing Difficulty Eyes: + Eye Pain, No Swelling, No Redness Cardiovascular: No Chest Pain, No SOB, No Orthopnea, No Edema Respiratory: No Cough, No Sputum, No Wheezing, No dyspnea Gastrointestinal: No Nausea, No Vomiting, No Diarrhea, No abdominal Pain, No Hematochezia, No Melena Genitourinary: No Dysuria, No Urinary Frequency, No Hematuria Musculoskeletal: No joint pain, No Myalgias Skin: + Skin Lesions, No rash Neuro: No Weakness, No Numbness, No Dizziness, No Headache Psych: No Anxiety/Panic, No Depression Heme/Lymph: No Bruising, No Lymphadenopathy Endocrine: No Polyuria, No Polydipsia PMFSH Past Medical History Attestation statement: The following information was validated with the patient. Medical History Anxiety CVA (cerebral vascular accident) Depression Endocarditis Epileptic seizure High cholesterol Opioid use disorder Seizure Surgical History Mitral valve replaced Social History Social History Household Members: Unknown / Unable to assess Housing: Unknown / Unable to assess Do you presently have visiting nurse or other home services: No (unknown) Unable to assess alcohol history related to: Unknown Alcohol intake: unknown Patient Tobacco Use Status: Tobacco use Unknown Substance Use Type: Heroin Advance Directives: No Advance Directives Information Provided: Yes service: No Current occupational status: unemployed Physical Exam Vital Signs: Vital Signs: Last Vital Signs Temp 96.8 F 09/05/21 13:18 Pulse 64 09/05/21 15:08 Resp 18 09/05/21 15:08 BP 116/83 09/05/21 15:08 Pulse Ox 96 09/05/21 15:08 BMI result Body Mass Index 33.3 Appearance: Alert. Oriented X3. No acute distress. Eyes: Pupils equal, round and reactive to light. EOMI, no nystagmus. right superior orbit with dried blood, mild ecchymosis and mild tenderness to superiorlateral potion. ENT: Pharynx normal. Neck: Normal inspection. Neck supple. No midline tenderness. CVS: Normal heart rate and rhythm. +systolic murmur and click. Pulses normal. Respiratory: No respiratory distress. Breath sounds normal. Abdomen: Soft and nontender. +BS x4. no flank ecchymosis Skin: Skin warm and dry. Normal skin color. Normal skin turgor. No rashes. Extremities: right forearm with large scar on dorsal aspect, slight contracture of left hand. atraumatic x4, normal ROM Neuro: Oriented X 3. Slight left sided weakness, UE>LE. Course Course Course Narrative: 56-year-old female with a history of IVDA on maintenance, history of endocarditis status post mitral valve replacement on Coumadin, history of CVA with left-sided weakness, seizure disorder, depression who presents to the ER for evaluation after a fall out of bed with head strike against the nightstand earlier this morning. She has not had an INR checked in 2 or 3 weeks. There has been trouble with transportation to medical care and care at home. EMS reports no food in the home. Patient states she has not eaten in 1 day. On examination her mental status seems to be at baseline as compared to prior visits. Will check CT head and facial bones to rule out injury and bleeding will also check her basic lab workup including PT INR. She denies headache or neck pain. Reevaluation(s) Reevaluation #1: INR elevated at 6.6. Preliminary read of the CT scan does not show any active hemorrhage. No need for emergent reversal at this time. Official CT scan read is pending. Reevaluation #2: CT scan shows chronic encephalomalacia no acute injuries, bleeding or stroke. Her lab workup is otherwise unremarkable aside from her supratherapeutic INR. Will allowed to drift down on its own. Goal is 2.5-3.5 given her mechanical valve history. Utox + benzos but she is prescribed alprazolam. Will get Physical therapy to evaluate her and get Case Management for possible placement to acute rehab. Physician observation started at 15:26. Patient placed in physician observation because patient is awaiting PT evaluation for the possible need of inpatient rehab. At the time observation was started patient's vital signs were stable. Patient is alert and oriented. Neuro exam is unchanged from baseline. CV: RRR and lungs are clear. Will continue to monitor. Reevaluation #3: Home meds reordered except for Coumadin. MDM - Fall Medical Records Attestation: I reviewed the patient's medical records. Lab Data Attestation: I reviewed the patient's lab results. Result diagrams: 09/05/21 13:36 09/05/21 13:36 Labs: Lab Results 09/05/21 09/05/21 09/05/21 Range/Units 13:36 13:36 13:36 WBC 4.3 L (4.8-10.8) X10*3/uL RBC 4.44 (4.20-5.50) X10*6/uL Hgb 12.5 (12.0-16.0) g/dl Hct 39.7 (37.0-47.0) % MCV 89.4 (80.0-98.0) fL MCH 28.2 (27.0-33.0) pg MCHC 31.5 (31.0-35.0) g/dl RDW 14.5 (11.0-16.0) % Plt Count 189 (160-400) X10*3/uL MPV 11.0 (9.4-12.3) fL Immature Gran % (Auto) 0.2 (0.0-0.4) % Neut % (Auto) 68.8 (45-73) % Lymph % (Auto) 20.8 (20-40) % [place] % (Auto) 8.6 (2-11) % Eos % (Auto) 1.4 (0-4) % Baso % (Auto) 0.2 (0-2) % Lymph # (Auto) 0.9 L (1.2-4.9) X10*3/uL [place] # (Auto) 0.4 (0.1-1.2) X10*3/uL Eos # (Auto) 0.1 (0.0-0.4) X10*3/uL Baso # (Auto) 0.0 (0.0-0.2) X10*3/uL Abs Immat Gran (auto) 0.01 (0.00-0.03) X10*3/uL Absolute Neuts (auto) 2.9 (2.0-8.3) x10*3/uL Absolute Nucleated RBC 0.000 (0.0-0.012) X10*3/uL Nucleated RBC % (auto) 0.0 (0.0-0.2) /100WBC PT 78.5 H (9.9-13.0) SEC INR 6.6 H* (0.9-1.1) APTT 126.9 H* (24.1-38.0) SEC Sodium 140 (135-145) mmol/L Potassium 3.9 D (3.3-5.1) mmol/L Chloride 106 (96-108) mmol/L Carbon Dioxide 21 L (22-29) mmol/L Anion Gap 17 (12-20) BUN 14 (9-16) mg/dL Creatinine 0.86 (0.5-1.4) mg/dL Estim Creat Clear Calc 80.2 Estimated GFR > 60 Random Glucose 122 H (60-115) mg/dL Lactic Acid (0.5-2.0) mmol/L Calcium 9.0 (8.4-10.2) mg/dL Magnesium 2.0 (1.6-2.6) mg/dL Total Bilirubin 0.4 (0.0-1.0) mg/dL Direct Bilirubin 0.2 (0.0-0.5) mg/dL AST 31 (5-31) U/L ALT 24 (0-31) U/L Alkaline Phosphatase 113 (39-117) U/L Total Creatine Kinase 268 H (26-140) U/L Total Protein 7.3 (6.5-8.0) g/dL Albumin 4.1 (3.5-5.0) g/dL Urine Color Urine Appearance Urine pH (5.0-8.0) Ur Specific [place] (1.005-1.025) Urine Protein (NEG-TRACE) MG/DL Urine Glucose (UA) (NEG) MG/DL Urine Ketones (NEG) MG/DL Urine Blood (NEG) Urine Nitrite (NEG) Ur Leukocyte Esterase (NEG) Urine RBC (0) /HPF Urine WBC (0-4) /HPF Ur Squamous Epith Cells /LPF Amorphous Sediment /LPF Urine Bacteria /LPF Urine Opiates Screen (Not Detect) Urine Fentanyl Screen (Not Detect) Ur Barbiturates Screen (Not Detect) Ur Phencyclidine Scrn (Not Detect) Ur Amphetamines Screen (Not Detect) U Benzodiazepines Scrn (Not Detect) Urine Cocaine Screen (Not Detect) U Marijuana (THC) Screen (Not Detect) Ethyl Alcohol mg/dL COVID-19 (CLARITZA) (Negative) COVID-19 Clin Com 09/05/21 09/05/21 09/05/21 Range/Units 13:36 13:36 13:36 WBC (4.8-10.8) X10*3/uL RBC (4.20-5.50) X10*6/uL Hgb (12.0-16.0) g/dl Hct (37.0-47.0) % MCV (80.0-98.0) fL MCH (27.0-33.0) pg MCHC (31.0-35.0) g/dl RDW (11.0-16.0) % Plt Count (160-400) X10*3/uL MPV (9.4-12.3) fL Immature Gran % (Auto) (0.0-0.4) % Neut % (Auto) (45-73) % Lymph % (Auto) (20-40) % [place] % (Auto) (2-11) % Eos % (Auto) (0-4) % Baso % (Auto) (0-2) % Lymph # (Auto) (1.2-4.9) X10*3/uL [place] # (Auto) (0.1-1.2) X10*3/uL Eos # (Auto) (0.0-0.4) X10*3/uL Baso # (Auto) (0.0-0.2) X10*3/uL Abs Immat Gran (auto) (0.00-0.03) X10*3/uL Absolute Neuts (auto) (2.0-8.3) x10*3/uL Absolute Nucleated RBC (0.0-0.012) X10*3/uL Nucleated RBC % (auto) (0.0-0.2) /100WBC PT (9.9-13.0) SEC INR (0.9-1.1) APTT (24.1-38.0) SEC Sodium (135-145) mmol/L Potassium (3.3-5.1) mmol/L Chloride (96-108) mmol/L Carbon Dioxide (22-29) mmol/L Anion Gap (12-20) BUN (9-16) mg/dL Creatinine (0.5-1.4) mg/dL Estim Creat Clear Calc Estimated GFR Random Glucose (60-115) mg/dL Lactic Acid 1.4 (0.5-2.0) mmol/L Calcium (8.4-10.2) mg/dL Magnesium (1.6-2.6) mg/dL Total Bilirubin (0.0-1.0) mg/dL Direct Bilirubin (0.0-0.5) mg/dL AST (5-31) U/L ALT (0-31) U/L Alkaline Phosphatase (39-117) U/L Total Creatine Kinase (26-140) U/L Total Protein (6.5-8.0) g/dL Albumin (3.5-5.0) g/dL Urine Color Urine Appearance Urine pH (5.0-8.0) Ur Specific [place] (1.005-1.025) Urine Protein (NEG-TRACE) MG/DL Urine Glucose (UA) (NEG) MG/DL Urine Ketones (NEG) MG/DL Urine Blood (NEG) Urine Nitrite (NEG) Ur Leukocyte Esterase (NEG) Urine RBC (0) /HPF Urine WBC (0-4) /HPF Ur Squamous Epith Cells /LPF Amorphous Sediment /LPF Urine Bacteria /LPF Urine Opiates Screen (Not Detect) Urine Fentanyl Screen (Not Detect) Ur Barbiturates Screen (Not Detect) Ur Phencyclidine Scrn (Not Detect) Ur Amphetamines Screen (Not Detect) U Benzodiazepines Scrn (Not Detect) Urine Cocaine Screen (Not Detect) U Marijuana (THC) Screen (Not Detect) Ethyl Alcohol < 10 mg/dL COVID-19 (CLARITZA) Negative (Negative) COVID-19 Clin Com See Note 09/05/21 09/05/21 Range/Units 15:14 15:14 WBC (4.8-10.8) X10*3/uL RBC (4.20-5.50) X10*6/uL Hgb (12.0-16.0) g/dl Hct (37.0-47.0) % MCV (80.0-98.0) fL MCH (27.0-33.0) pg MCHC (31.0-35.0) g/dl RDW (11.0-16.0) % Plt Count (160-400) X10*3/uL MPV (9.4-12.3) fL Immature Gran % (Auto) (0.0-0.4) % Neut % (Auto) (45-73) % Lymph % (Auto) (20-40) % [place] % (Auto) (2-11) % Eos % (Auto) (0-4) % Baso % (Auto) (0-2) % Lymph # (Auto) (1.2-4.9) X10*3/uL [place] # (Auto) (0.1-1.2) X10*3/uL Eos # (Auto) (0.0-0.4) X10*3/uL Baso # (Auto) (0.0-0.2) X10*3/uL Abs Immat Gran (auto) (0.00-0.03) X10*3/uL Absolute Neuts (auto) (2.0-8.3) x10*3/uL Absolute Nucleated RBC (0.0-0.012) X10*3/uL Nucleated RBC % (auto) (0.0-0.2) /100WBC PT (9.9-13.0) SEC INR (0.9-1.1) APTT (24.1-38.0) SEC Sodium (135-145) mmol/L Potassium (3.3-5.1) mmol/L Chloride (96-108) mmol/L Carbon Dioxide (22-29) mmol/L Anion Gap (12-20) BUN (9-16) mg/dL Creatinine (0.5-1.4) mg/dL Estim Creat Clear Calc Estimated GFR Random Glucose (60-115) mg/dL Lactic Acid (0.5-2.0) mmol/L Calcium (8.4-10.2) mg/dL Magnesium (1.6-2.6) mg/dL Total Bilirubin (0.0-1.0) mg/dL Direct Bilirubin (0.0-0.5) mg/dL AST (5-31) U/L ALT (0-31) U/L Alkaline Phosphatase (39-117) U/L Total Creatine Kinase (26-140) U/L Total Protein (6.5-8.0) g/dL Albumin (3.5-5.0) g/dL Urine Color YELLOW Urine Appearance HAZY Urine pH 7.0 (5.0-8.0) Ur Specific [place] 1.015 (1.005-1.025) Urine Protein NEG (NEG-TRACE) MG/DL Urine Glucose (UA) NEG (NEG) MG/DL Urine Ketones NEG (NEG) MG/DL Urine Blood NEG (NEG) Urine Nitrite NEG (NEG) Ur Leukocyte Esterase 1+ H (NEG) Urine RBC 1-4 (0) /HPF Urine WBC 5-9 H (0-4) /HPF Ur Squamous Epith Cells 1+ /LPF Amorphous Sediment 1+ /LPF Urine Bacteria NONE /LPF Urine Opiates Screen Not Detected (Not Detect) Urine Fentanyl Screen Not Detected (Not Detect) Ur Barbiturates Screen Not Detected (Not Detect) Ur Phencyclidine Scrn Not Detected (Not Detect) Ur Amphetamines Screen Not Detected (Not Detect) U Benzodiazepines Scrn POSITIVE H (Not Detect) Urine Cocaine Screen Not Detected (Not Detect) U Marijuana (THC) Screen Not Detected (Not Detect) Ethyl Alcohol mg/dL COVID-19 (CLARITZA) (Negative) COVID-19 Clin Com Discharge Plan Discharge Clinical Impression: Supratherapeutic INR, Fall against sharp object, Periorbital contusion Patient Disposition: Still a Patient Prescriptions: No Action atorvastatin 40 mg tablet 1 tab PO BEDTIME 0RF venlafaxine 75 mg capsule,extended release 24hr 1 cap PO DAILY 0RF alprazolam 1 mg tablet 1 tab PO TID PRN (Reason: Anxiety) 0RF metoprolol succinate 50 mg tablet extended release 24 hr 1 tab PO DAILY 0RF warfarin 10 mg tablet 1 tab PO Q OTHER DAY 0RF sertraline 100 mg tablet 1 tab PO DAILY 0RF levetiracetam 750 mg tablet 1 tab PO BID 0RF mirtazapine 15 mg tablet 1 tab PO BEDTIME 0RF methadone 5 mg Tablet 104 mg PO DAILY 0RF nicotine 14 mg/24 hr Patch 24 Hour 14 mg transdermal DAILY Qty: 30 0RF sennosides [senna] 8.6 mg tablet 2 cap PO BEDTIME PRN (Reason: constipation) 0RF warfarin 4 mg tablet 1 tab PO Q OTHER DAY 0RF Rx Instructions: with 5mg tablet for TDD 9mg every other day warfarin 5 mg tablet 1 tab PO Q OTHER DAY 0RF Rx Instructions: with 4mg tablet for TDD of 9mg QOD
[2021-09-05 13:18] VITALS: BP 110/75; PULSE 96; RESP 17; TEMP 36; O2SAT 98; BMI 33.3
[2021-09-05 13:19] VITALS: BP 180/87; O2SAT 100
[2021-09-05 13:44] LABS: Basophils Percent Auto 0.2 % (0-2); Eosinophils Absolute Auto 0.1 X10*3/uL (0.0-0.4); Eosinophils Percent Auto 1.4 % (0-4); Hematocrit 39.7 % (37.0-47.0); Hemoglobin 12.5 g/dl (12.0-16.0); Imm Gran Abs Auto 0.01 X10*3/uL (0.00-0.03); Imm Gran Pct Auto 0.2 % (0.0-0.4); Lymphocytes Absolute Auto 0.9 X10*3/uL (1.2-4.9); Lymphocytes Percent Auto 20.8 % (20-40); MANUAL DIFF FLAG NO; Mean Corpuscular HGB Conc 31.5 g/dl (31.0-35.0); Mean Corpuscular Hemoglobin 28.2 pg (27.0-33.0); Mean Corpuscular Volume 89.4 fL (80.0-98.0); Monocytes Absolute Auto 0.4 X10*3/uL (0.1-1.2); Monocytes Percent Auto 8.6 % (2-11); Neutrophils Absolute Auto 2.9 x10*3/uL (2.0-8.3); Neutrophils Percent Auto 68.8 % (45-73); Platelet Count 189 X10*3/uL (160-400); Red Blood Count 4.44 X10*6/uL (4.20-5.50); Red Cell Distribution Width 14.5 % (11.0-16.0); White Blood Count 4.3 X10*3/uL (4.8-10.8)
[2021-09-05 13:56] LABS: Lactic Acid 1.4 mmol/L (0.5-2.0)
[2021-09-05 13:58] LABS: Ethanol < 10 mg/dL
[2021-09-05 14:01] LABS: COVID-19 Test Negative (Negative)
[2021-09-05 14:03] LABS: Prothrombin Time 78.5 SEC (9.9-13.0)
[2021-09-05 14:04] LABS: Alanine Aminotransferase 24 U/L (0-31); Albumin Level 4.1 g/dL (3.5-5.0); Alkaline Phosphatase 113 U/L (39-117); Anion Gap 17 (12-20); Aspartate Amino Transferase 31 U/L (5-31); Bilirubin Direct 0.2 mg/dL (0.0-0.5); Bilirubin Total 0.4 mg/dL (0.0-1.0); Blood Urea Nitrogen 14 mg/dL (9-16); Carbon Dioxide 21 mmol/L (22-29); Chloride 106 mmol/L (96-108); Creatinine Clr Calc Pharmacy 80.2; Estimated Glomerular Filt Rate > 60; Glucose Random 122 mg/dL (60-115); Potassium 3.9 mmol/L (3.3-5.1); Sodium 140 mmol/L (135-145); Total Protein 7.3 g/dL (6.5-8.0)
[2021-09-05] MEDS: levETIRAcetam 500 MG TABLET 750 MG PO (14:05)
[2021-09-05 14:12] LABS: INTERNATIONAL NORM RATIO 6.6 (0.9-1.1); Partial Thromboplastin Time 126.9 SEC (24.1-38.0)
[2021-09-05 15:08] VITALS: BP 116/83; PULSE 64; RESP 18; O2SAT 96
[2021-09-05 15:24] LABS: Appearance Urine HAZY; Color Urine YELLOW; Glucose Urine UA NEG (NEG); Leukocyte Esterase Urine 1+ (NEG); Nitrite Urine NEG (NEG); Specific Gravity - Urine 1.015 (1.005-1.025); UACC Culture Trigger YES; Urine Blood NEG (NEG); Urine Ketones NEG (NEG); Urine Protein NEG (NEG-TRACE)
[2021-09-05 15:31] LABS: Amorphous Sediment Urine 1+ /LPF; Squamous Epithelial Cell Urine 1+ /LPF
[2021-09-05 15:37] LABS: Amphetamine Screen Urine Not Detected (Not Detect); Barbiturates, Urine Not Detected (Not Detect); Benzodiazepines Screen Urine POSITIVE (Not Detect); Cannabinoid Screen Urine Not Detected (Not Detect); Cocaine Screen Urine Not Detected (Not Detect); Fentanyl, urine Not Detected (Not Detect); Opiate Screen Urine Not Detected (Not Detect); Phencyclidine Screen Urine Not Detected (Not Detect)
--- NOTE | 2021-09-05 17:06 | PHA.MEDREC ---
Pharmacy Consult ? Medication Reconciliation Pharmacy has completed the medication reconciliation. Pt states that she alternates between 9mg and 10mg of warfarin every other day. Also states that she gets 104mg of methadone from [facility], did not clarify when her last dose was. Yina Vogt, PharmD
--- NOTE | 2021-09-05 19:19 | PC.NURSE ---
patient agitated about plan of care. patient reports that she doesnt need to stay in hospital. patient educated on plan of care and need for CM. patient understanding. spoke with samy and updated on plan of care, requests to speak with case management in AM. patient provided food and beverage at this time
[2021-09-05 22:56] VITALS: BP 102/70; PULSE 78; RESP 18; TEMP 36.5; O2SAT 98
[2021-09-05] MEDS: ALPRAZolam 0.5 MG TABLET 1 MG PO (23:27)
[2021-09-05] MEDS: Mirtazapine 15 MG TABLET PO (23:28)
[2021-09-05] MEDS: Atorvastatin Calcium 40 MG TABLET PO (23:28)
[2021-09-05] MEDS: levETIRAcetam 250 MG TABLET 750 MG PO (23:28)
[2021-09-06 02:00] VITALS: BP 102/65; PULSE 64; RESP 16; TEMP 36.7; O2SAT 95
[2021-09-06 06:00] VITALS: BP 110/70; PULSE 64; RESP 16; TEMP 36.7; O2SAT 98
--- NOTE | 2021-09-06 07:40 | PC.NURSE ---
attempted to retrieve pts Methadone prescriber however pt kept stating i dont want to talk about this right now pt made aware that in order to dose her i need the information i was asking, no change and unable to obtain info needed
[2021-09-06 09:19] LABS: Prothrombin Time 74.6 SEC (9.9-13.0)
[2021-09-06 09:24] LABS: INTERNATIONAL NORM RATIO 6.3 (0.9-1.1)
--- NOTE | 2021-09-06 10:00 | PC.NURSE ---
Pt request to go home, Case Management inquiring with daughter regarding Methadone and INR prior to setting up home services.
[2021-09-06 10:09] VITALS: BP 103/39; PULSE 87; RESP 16; O2SAT 98
--- NOTE | 2021-09-06 10:27 | MHC.CM.ED ---
Received case management consult overnight. Patient came to ER after a fall. EMS reported no food in the home. Patient's INR is elevated. Hasn't checked her INR's in a week due to transpiration issues. Patient goes to the [facility] on [address] Patient received 104mg on site and take home bottles for 09/04-09/09. PCP is at [facility]. T/W attempted to reach patient's daughter Nery via telephone at [phone]. Telephone number is out of service. Reached out via telephone to [phone] requesting return telephone call. Referral being broadcasted in [facility] for VNA. No transportation arrangements made at this time. Continue to monitor for d/c needs.
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
[2021-09-06] MEDS: levETIRAcetam 250 MG TABLET 750 MG PO (11:12)
[2021-09-06] MEDS: Sertraline HCL 100 MG TABLET PO (11:14)
[2021-09-06] MEDS: Venlafaxine HCl ER 75 MG CAP.ER.24H PO (11:14)
--- NOTE | 2021-09-06 14:44 | MHC.CM.PN ---
This marketing underwriter along with Carmen Giraldo attempted to place call to Max daughter to notify her that her mother was on her way home as she requested. Attempted to make the call x2- Call would ring, become silent and then disconnect.
--- NOTE | 2021-09-06 15:05 | MHC.CM.PN ---
This senior copywriter received call from patient regarding question of where she would be going to have INR check. Confirmed with Davina that patient will have a ride from Erick at [facility] for her appt chiquita. Erick will call patient to arrange time. Patient in agreement of plan. To note, this senior copywriter could her daughter in background of phone call for portion of the conversation.
--- NOTE | 2021-09-06 15:37 | MHC.CM.ED ---
Addendum entered by Davina Call 09/07/21 11:28: [facility] was not able to accept patient. Referral broadcasted in [employer]. [facility] is able to accept patient and has been asked to reach out to Erick Reilly at [facility] to help coordinate visits. Original Note: Received telephone call from [facility]. Erick has been working with patient and daughter. Daughter has a history of discontinuing patient's services and then states patient needs additional services. Erick can be reached at [phone]. T/W informed Erick that VNA is trying to arranged for patient. Continue to monitor for d/c needs.
--- NOTE | 2021-09-07 14:22 | MHC.CM.ED ---
Received notification from [facility] that patient's daughter, Ochoa, does not want VNA for patient. She wants RATE CLERK PASSENGER hours. This contradicts exactly what was discussed with [place] on 09/06 by T/W. Ochoa was looking for a VNA to help with medication administration. [facility] will not be accepting patient.
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
== END 2021-09-06 13:21 | disposition home or self-care (01) ==
PROVIDERS: Physician Assistant; Emergency Provider Emergency Medicine Emergency Medical Services
DX: S05.11XA Contusion of eyeball and orbital tissues, right eye, initial encounter (principal); G44.309 Post-traumatic headache, unspecified, not intractable; H57.11 Ocular pain, right eye; W01.10XA Fall on same level from slipping, tripping and stumbling with subsequent striking against unspecified object, initial encounter; Y93.9 Activity, unspecified; Y92.9 Unspecified place or not applicable; Y99.9 Unspecified external cause status; Z79.01 Long term (current) use of anticoagulants; Z79.899 Other long term (current) drug therapy; Z20.822 Contact with and (suspected) exposure to COVID-19
CPT/HCPCS: 36415; 70450; 70486; 80048; 80076; 80307; 81001; 82077; 82550; 83605; 83735; 85025; 85610; 85730; 87086; 87635; 97162; 99284

== ENCOUNTER 2022-01-26 14:27 | Outpatient (REF) | payer OTHER, SELFPAY ==
--- NOTE | 2022-02-14 07:51 | MHC.AU.HAS ---
Hearing Aid Evaluation Date of Visit: 01/26/22 Historical Information: Description of Hearing: Left - Normal hearing 250-1000 Hz, dropping to a profound sensorineural hearing loss with 92% speech understanding Right - Moderate to profound sensorineural hearing loss with 0% speech discrimination Current personal amplification information, if applicable: NONE Summary: Medically cleared for Bi-CROS hearing aid system by ENT. Due to patient's decreased cognition and dexterity difficulty rechargeable hearing aids are recommended with custom earmolds. Lives with daughter who will be able to help as needed Hearing Aid Prescription: Based on the individual?s shared listening needs, communication environments, dexterity, desire for connectivity, and personal preferences, the following prescription for amplification has been made: Right ear: Inspector Coated Fabrics: [employer]idia Model: CROS REBECA-R Battery Size: Rechargeable Color: Champagne Ophthalmology Assistant: #1 Type of Mold: Embedded canal lock earmold Left ear: Inspector Coated Fabrics: [email or web address] Model: Evolv AI 1600 REBECA-R Battery Size: Rechargeable Color: Champagne Ophthalmology Assistant: #1 120/60 Type of Mold: AP canal lock Plan of Care: Patient wishes to purchase hearing aids as prescribed Action Taken/Action Needed: Earmold Impressions Taken Prior authorization to be requested Remote programming to be set up at fitting appointment Primary Diagnosis: H90.3 Bilateral Sensorineural Hearing Loss Signature:Provider: Iman Ortega, CCC-A
== END 2022-01-26 14:28 | disposition home or self-care (01) ==
LOC: HO.HAP 14:27
PROVIDERS: Visit Provider Registered Nurse
DX: Z46.1 Encounter for fitting and adjustment of hearing aid (principal); H90.3 Sensorineural hearing loss, bilateral
CPT/HCPCS: 92591; V5275

== ENCOUNTER 2022-03-31 10:26 | Outpatient (REF) | payer OTHER, SELFPAY | END 2022-03-31 10:27 | disposition home or self-care (01) | LOC: HO.HAP 10:26 | PROVIDERS: Visit Provider Registered Nurse | DX: Z46.1 Encounter for fitting and adjustment of hearing aid (principal); H90.3 Sensorineural hearing loss, bilateral | CPT/HCPCS: 92621; V5011; V5020; V5221; V5264 ==

== ENCOUNTER 2022-05-02 12:47 | Outpatient (REF) | payer OTHER, SELFPAY ==
--- NOTE | 2022-05-03 08:16 | MHC.AU.HFU ---
Hearing Instrument Follow-Up- Binaural Date of Visit: 05/02/22 Right Ear: Night Assistant: Solitario Evolv AI CROS REBECA-R Chanmpagne Serial #[id number] Repair Warranty: 05/23/2025 Loss and Damage Warranty: 05/23/2025 Service Plan: 03/31/2023 Battery Size: Rechargeable Color: Champagne Door Puller: #1 Type of Mold: AP canal lock earmold #[id number] warranty 05/23/2022 Type of Wax Guard: HearClear Dispensed By: [facility] Date of Fittin03/31/2022 Left Ear: Night Assistant: Solitario Evolv AI 1600 REBECA-R [id number] Repair Warranty: 05/23/2025 Loss and Damage Warranty: 05/23/2025 Service Plan: 03/30/2023 Battery Size: Rechargeable Color: Champagne Door Puller: #1 120/60 Type of Mold: AP canal lock #[id number] warranty 03/23/2024 Type of Wax Guard: HearClear Dispensed By: [facility] Date of Fittin03/31/2022 Follow-Up Summary: Hearing Aid Follow-up - Patient reports she is not sure how the aids are working. She is able to insert the aids and place in and out of paper bundler well. Daughter Ochoa is accompanying today. The left aid does not have a wax guard and cerumen is embedded in the toy maker and is not amplifying at all. Cleaned both aids, and the CROS system is now amplifying well and patient notices a big difference. Showed daughter how to clean aid and change wax guards. Showed how to trouble shoot if aid is working. Downloaded Thrive liana on patient's cell phone and the [employer] liana on her daughter's phone and practiced. Recommendations:Hearing instrument follow-up or maintenance as needed. Please contact our clinic with any questions or concerns. Advise use of Ear Wax MD drops once every 2 weeks. Diagnosis Code(s):Primary Diagnosis: H90.3 Bilateral Sensorineural Hearing Loss Signature:Provider: Elliott Ortega, [facility]
== END 2022-05-02 12:48 | disposition home or self-care (01) ==
LOC: HO.HAP 12:47
PROVIDERS: Visit Provider Otolaryngology
DX: Z13.89 Encounter for screening for other disorder (principal)

== ENCOUNTER 2022-08-18 15:04 | Outpatient (REF) | payer OTHER, SELFPAY ==
--- NOTE | 2022-08-19 10:41 | MHC.AU.HFU ---
Hearing Instrument Follow-Up- Binaural Date of Visit: 08/19/22 Right Ear:Pants Maker: Solitario Evolv AI CROS REBECA-R Chanmpagne Serial #[id number] Repair Warranty: 05/23/2025 Loss and Damage Warranty: 05/23/2025 Service Plan: 03/31/2023 Battery Size: Rechargeable Color: Champagne Collar Padder Blindstitch: #1 Type of Mold: AP canal lock earmold #[id number] warranty 05/23/2022 Type of Wax Guard: HearClear Dispensed By: [facility] Date of Fittin03/31/2022 Left Ear:Pants Maker: Solitario Evolv AI REBECA-R [id number] Repair Warranty: 05/23/2025 Loss and Damage Warranty: 05/23/2025 Service Plan: 03/30/2023 Battery Size: Rechargeable Color: Champagne Collar Padder Blindstitch: #1 120/60 Type of Mold: AP canal lock #[id number] warranty 03/23/2024 Type of Wax Guard: HearClear Dispensed By: [facility] Date of Fittin03/31/2022 Follow-Up Summary: Both aids and in school suspension aide (with no cord) dropped off yesterday with report that the right CROS was not keeping a charge and daughter wants the left aid looked at a patient was having trouble hearing with just the left aid. Visual inspection of the Left aid showed no wax guard in the earmold with cerumen deep in the alberene stone setter. Not able to clean all cerumen from the alberene stone setter and aid sounds weak. Sending both aids for repair under warranty. HOUSING RELOCATION IS IN REPAIR DRAWER. PLEASE PROGRAM AIDS TO LAST SETTINGS WHEN RECEIVED AND CALL DAUGHTER TO LOBBY CONCIERGE SOON POSSIBLE. Discussed setting up a loaner for the left ear; however, given the patient's cognitive state, the change of trying only one aid and without an earmold daughter thinks would be more confusing and difficult for patient. Diagnosis Code(s):Primary Diagnosis: H90.3 Bilateral Sensorineural Hearing Loss Signature:Provider: Elliott Ortega, [facility]
== END 2022-08-18 15:05 | disposition home or self-care (01) ==
LOC: HO.HAP 15:04
PROVIDERS: Visit Provider Otolaryngology
DX: Z13.89 Encounter for screening for other disorder (principal)

== ENCOUNTER 2022-09-09 15:45 | Outpatient (REF) | payer OTHER, SELFPAY ==
--- NOTE | 2022-09-09 16:18 | MHC.AU.HA3 ---
Hearing Instrument Follow-Up- Binaural Date of Visit: 09/09/22 Right Ear: Make, Model, Color, Serial Number: Solitario RAINEY CROS REBECA-R SN: [id number] Color: Champagne Telephonic Nurse Case Manager Repair Warranty: 05/23/2025 Telephonic Nurse Case Manager Loss and Damage Warranty: 05/23/2025 [facility] Service Plan: 03/31/2023 Battery Size: Rechargeable Topline Beading Machine Tender/Slim Tube: #1 Earmold/Dome/CShell/SlimTip:AP canal lock earmold #[id number] warranty 05/23/2022 Dispensed By: [facility] Date of Fittin03/31/2022 Left Ear: Make, Model, Color, Serial Number: Solitario Mejia AI REBECA-R SN: [id number] Color: Champagne Telephonic Nurse Case Manager Repair Warranty: 05/23/2025 Telephonic Nurse Case Manager Loss and Damage Warranty: 05/23/2025 [facility] Service Plan: 03/30/2023 Battery Size: Rechargeable Topline Beading Machine Tender/Slim Tube: #1 120/60 Earmold/Dome/CShell/SlimTip: AP canal lock #[id number] warranty 03/23/2024 Type of Wax Guard: HearClear Dispensed By: [facility] Date of Fittin03/31/2022 Follow-Up Summary: Ariana's son-in-law arrived to miner pick her hearing aids from repair. Ariana not present. He brought her cellphone and needed assistance repairing the hearing aids to the phone. Successfully re-paired the left hearing aid to the cell phone (right is CROS). Irwin'ed how to re-pair via Settings, Accessibility, Hearing Devices to son-in-law if future connection issues arise. Recommendations: Please contact our clinic with any questions or concerns. Diagnosis Code(s): Primary Diagnosis: H90.3 Bilateral Sensorineural Hearing Loss Signature: Provider: Elliott Leahy, [facility]
== END 2022-09-09 15:46 | disposition home or self-care (01) ==
LOC: HO.HAP 15:45
PROVIDERS: Visit Provider Internal Medicine
DX: Z13.89 Encounter for screening for other disorder (principal)

== ENCOUNTER 2022-09-27 13:36 | Outpatient (REF) | payer MEDICAID, SELFPAY | END 2022-09-27 13:37 | disposition home or self-care (01) | LOC: HO.HAP 13:36 | PROVIDERS: PCP Registered Nurse; Visit Provider Registered Nurse | DX: Z13.89 Encounter for screening for other disorder (principal) ==

== ENCOUNTER 2022-10-12 15:17 | Outpatient (REF) | payer MEDICAID, SELFPAY ==
--- NOTE | 2022-10-12 16:13 | MHC.AU.HFU ---
Hearing Instrument Follow-Up- Binaural Date of Visit: 10/12/22 Right Ear: Solitario Mejia AI CROS REBECA-R SN: [id number] Color: Champagne Repair Warranty: 05/23/2025 Loss and Damage Warranty: 05/23/2025 Service Plan: 03/31/2023 Battery Size: Rechargeable Color: Champagne Hydraulic Rockbreaker Operator: #1 Type of Mold: AP canal lock earmold #[id number] warranty 05/23/2022 Dispensed By: [facility] Date of Fittin03/31/2022 Left Ear: Solitario Mejia AI REBECA-R SN: [id number] Color: Champagne Repair Warranty: 05/23/2025 Loss and Damage Warranty: 05/23/2025 Service Plan: 03/30/2023 Battery Size: Rechargeable Hydraulic Rockbreaker Operator: #1 120/60 Type of Mold: AP canal lock #[id number] warranty 03/23/2024 Type of Wax Guard: HearClear Dispensed By: [facility] Date of Fittin03/31/2022 Follow-Up Summary: The patient was seen today to pick pulling machine operator her BiCROS hearing aids that she dropped off for repair stating she was having trouble streaming from her iPhone to her hearing aids, and that her right ear mold cracked. She is accompanied by her son-in-law. Otoscopy reveals cerumen in the right ear canal, clear left ear canal. Cerumen removal is recommended of right ear. Visual inspection of the hearing aids reveals the right ear mold is cracked. A courtesy right mold remake was ordered over the phone from the scan on file reference #[id number]. I then re-paired the left hearing aid to her iPhone and reviewed connectivity features, multiple times. When the right remake mold arrives, our clinic will contact the patient to schedule an ear mold fitting and again review connectivity if needed. We will review the fact that the right CROS device does not connect via bluetooth, only the left aid does. Diagnosis Code(s): Primary Diagnosis: H90.3 Bilateral Sensorineural Hearing Loss Signature: Provider: Iman Rivera, CCC-A
== END 2022-10-12 15:18 | disposition home or self-care (01) ==
LOC: HO.HAP 15:17
PROVIDERS: Visit Provider Registered Nurse
DX: Z13.89 Encounter for screening for other disorder (principal)

== ENCOUNTER 2022-10-12 15:53 | Outpatient (REF) | payer SELFPAY | END 2022-10-12 15:54 | disposition home or self-care (01) | LOC: HO.HAP 15:53 | PROVIDERS: Visit Provider Registered Nurse | DX: Z46.1 Encounter for fitting and adjustment of hearing aid (principal); H90.3 Sensorineural hearing loss, bilateral | CPT/HCPCS: V5267 ==

== ENCOUNTER 2022-12-27 11:23 | Outpatient (REF) | payer MEDICAID, SELFPAY ==
--- NOTE | 2022-12-27 11:56 | MHC.AU.HA3 ---
Hearing Instrument Follow-Up- Binaural Date of Visit: 12/27/22 Right Ear: Make, Model, Color, Serial Number: Solitario RAINEY CROS REBECA-R SN: [id number] Color: Champagne Smoked Meat Preparer Repair Warranty: 05/23/2025 Smoked Meat Preparer Loss and Damage Warranty: 05/23/2025 [facility] Service Plan: 03/31/2023 Battery Size: Rechargeable Rotary Envelope Machine Operator/Slim Tube: #1 Earmold/Dome/CShell/SlimTip:AP Canal Lock Earmold SN: [id number] Cristin: 01/16/2023 BROKEN/DISCARDED: AP canal lock earmold #[id number] warranty 05/23/2022 Dispensed By: [facility] Date of Fittin03/31/2022 Left Ear: Magdi, Model, Color, Serial Number: Solitario RAINEY REBECA-R SN: [id number] Color: Champagne Smoked Meat Preparer Repair Warranty: 05/23/2025 Smoked Meat Preparer Loss and Damage Warranty: 05/23/2025 [facility] Service Plan: 03/30/2023 Battery Size: Rechargeable Rotary Envelope Machine Operator/Slim Tube: #1 120/60 Earmold/Dome/CShell/SlimTip: AP canal lock #[id number] warranty 03/23/2024 Type of Wax Guard: HearClear Dispensed By: [facility] Date of Fittin03/31/2022 Follow-Up Summary: Ariana returned to brick picker her right CROS device with a new ear mold. Re-paired to left hearing aid via [employer] software. Left ear mold has some wax build up inside. Could not fully clean. Advised may need new left mold in future if sound quality is affected; however, currently the hearing aid is working well. Replaced wax guard. Ariana inquired about bluetooth again. Explained only the left hearing aid will connect to her phone. The left hearing aid was already successfully paired and connected to her phone which was confirmed by listening to music in office. Recommendations: Hearing instrument follow-up or maintenance as needed. Diagnosis Code(s): Primary Diagnosis: H90.3 Bilateral Sensorineural Hearing Loss Signature: Provider: Elliott Leahy, [facility]
== END 2022-12-27 11:24 | disposition home or self-care (01) ==
LOC: HO.HAP 11:23
PROVIDERS: Visit Provider Registered Nurse
DX: Z46.1 Encounter for fitting and adjustment of hearing aid (principal); H90.3 Sensorineural hearing loss, bilateral
CPT/HCPCS: V5264

== ENCOUNTER 2023-03-15 15:19 | Outpatient (REF) | payer MEDICAID, SELFPAY | END 2023-03-15 15:20 | disposition home or self-care (01) | LOC: HO.HAP 15:19 | PROVIDERS: Visit Provider Registered Nurse | DX: Z13.89 Encounter for screening for other disorder (principal) ==

== ENCOUNTER 2023-03-30 10:42 | Outpatient (REF) | payer SELFPAY | END 2023-03-30 10:43 | disposition home or self-care (01) | LOC: HO.HAP 10:42 | PROVIDERS: Visit Provider Registered Nurse | DX: Z13.89 Encounter for screening for other disorder (principal) ==

== ENCOUNTER 2023-04-21 13:52 | Outpatient (REF) | payer MEDICAID, SELFPAY | END 2023-04-21 13:53 | disposition home or self-care (01) | LOC: HO.HAP 13:52 | PROVIDERS: Visit Provider Registered Nurse | DX: Z46.1 Encounter for fitting and adjustment of hearing aid (principal); H90.3 Sensorineural hearing loss, bilateral | CPT/HCPCS: 92593 ==

== ENCOUNTER 2023-07-12 11:30 | Outpatient (REF) | payer MEDICAID, SELFPAY ==
--- NOTE | 2023-07-12 14:30 | MHC.AU.HA3 ---
Hearing Instrument Follow-Up- Binaural Date of Visit: 07/12/23 Right Ear: Make, Model, Color, Serial Number: Solitario RAINEY CROS REBECA-R SN: [id number] Color: Champagne Mold Yard Worker Repair Warranty: 05/23/2025 Mold Yard Worker Loss and Damage Warranty: 05/23/2025 [facility] Service Plan: 03/31/2023 Battery Size: Rechargeable Shuttle Inspector/Slim Tube: #1 Earmold/Dome/CShell/SlimTip:AP Canal Lock Earmold SN: [id number] Cristin: 01/16/2023 BROKEN/DISCARDED: AP canal lock earmold #[id number] warranty 05/23/2022 Dispensed By: [facility] Date of Fittin03/31/2022 Left Ear: Magdi, Model, Color, Serial Number: Solitario RAINEY REBECA-R SN: [id number] Color: Champagne Mold Yard Worker Repair Warranty: 05/23/2025 Mold Yard Worker Loss and Damage Warranty: 05/23/2025 [facility] Service Plan: 03/30/2023 Battery Size: Rechargeable Shuttle Inspector/Slim Tube: #1 120/60 Earmold/Dome/CShell/SlimTip: AP canal lock #[id number] warranty 03/23/2024 Type of Wax Guard: HearClear Dispensed By: [facility] Date of Fittin03/31/2022 Follow-Up Summary: Ariana visited to garbage pick up worker her L&D, have it paired with her cros transmitter, and have them both re-connected to her phone; all done without incident. Her daughter uses the caregiver liana but was overwhelmed today and did not have time to connect to it in the office. Follow up as needed. Recommendations: Recommendations: Hearing instrument follow-up or maintenance as needed. Diagnosis Code(s): Primary Diagnosis: H90.3 Bilateral Sensorineural Hearing Loss Signature: Provider: Iman Lennon, [facility]
== END 2023-07-12 11:31 | disposition home or self-care (01) ==
LOC: HO.HAP 11:30
PROVIDERS: Visit Provider Registered Nurse
DX: Z46.1 Encounter for fitting and adjustment of hearing aid (principal); H90.3 Sensorineural hearing loss, bilateral
CPT/HCPCS: 92593; 92700; V5264; V5299

== ENCOUNTER 2023-10-22 21:31 | Emergency (ER) | payer MEDICAID, SELFPAY ==
--- NOTE | 2023-10-22 | ECG_ITS ---
Test Reason : FALL Blood Pressure : / mmHG Vent. Rate : 077 BPM Atrial Rate : 000 BPM P-R Int : 320 ms QRS Dur : 106 ms QT Int : 424 ms P-R-T Axes : 000 001 -14 degrees QTc Int : 479 ms NSR with first degree AV block Incomplete right bundle branch block Nonspecific ST and T wave abnormality Abnormal ECG When compared with ECG of 20-MAR-2021 16:28, First degree AV block present Referred By: Generic ED Physician Electronically Signed By:Zaheer Smith
--- NOTE | ~2023-10-22 | XR_ITS ---
EXAMINATION: RIGHT KNEE, RIGHT 4 CLINICAL INFORMATION: Fall with knee and forearm pain COMPARISON: None available. TECHNIQUE: 2 views right knee, 2 views right forearm FINDINGS: Hypertrophic periosteal reaction is seen in the mid radial and ulnar diaphyses possibly secondary to remote healed trauma. No acute abnormality is seen. Tricompartmental degenerative changes are present in the knee with narrowing as well as some marginal osteophytes. A small knee joint effusion is present. Single surgical clip is noted overlying the region of the great saphenous vein at the level of the knee joint. XR/XR forearm RT 2V IMPRESSION: 1. No evidence of an acute osseous injury. 2. Degenerative changes in the knee with small joint effusion.
--- NOTE | ~2023-10-22 | XR_ITS ---
EXAMINATION: RIGHT KNEE, RIGHT 4 CLINICAL INFORMATION: Fall with knee and forearm pain COMPARISON: None available. TECHNIQUE: 2 views right knee, 2 views right forearm FINDINGS: Hypertrophic periosteal reaction is seen in the mid radial and ulnar diaphyses possibly secondary to remote healed trauma. No acute abnormality is seen. Tricompartmental degenerative changes are present in the knee with narrowing as well as some marginal osteophytes. A small knee joint effusion is present. Single surgical clip is noted overlying the region of the great saphenous vein at the level of the knee joint. XR/XR knee RT 2V IMPRESSION: 1. No evidence of an acute osseous injury. 2. Degenerative changes in the knee with small joint effusion.
--- NOTE | ~2023-10-22 | CT_ITS ---
EXAMINATION: CT head/brain wo IV con CT cervical spine wo IV con INDICATION INFORMATION: Fall COMPARISON: CT head 09/05/2021 TECHNIQUE: Separate noncontrast CT examinations of the head and cervical spine were performed. Coronal and sagittal reformats were obtained at the acquisition workstation. This CT examination was performed using dose optimization techniques as appropriate, variously including the following: * Automated exposure control * Adjustment of mA and/or kV according to patient size (this includes techniques or standardized protocols for targeted exams where dose is matched to indication/reason for exam; i.e. extremities or head) * Use of iterative reconstruction technique DLP: 1117 mGy-cm FINDINGS: HEAD: Chronic encephalomalacia involving the right frontoparietal lobe, stable. There is no evidence of acute intracranial hemorrhage or territorial infarction. Armando to white matter differentiation is well preserved. No abnormal mass effect or midline shift is seen. No extra-axial fluid collections are identified. No hydrocephalus. Proportional prominence of the ventricles and sulcal spaces is consistent with mild volume loss. Patchy periventricular and deep white matter hypoattenuation is consistent with mild small vessel ischemic changes. The cerebellar tonsils are well positioned. Subgaleal hematoma along the right occipital scalp without underlying calvarial fracture. Visualized portions of the orbits are unremarkable. The mastoid air cells and visualized portions of the paranasal sinuses are well aerated. CERVICAL SPINE: No evidence of acute fracture or traumatic subluxation of the cervical spine. There is straightening of the normal cervical curvature with otherwise maintained sagittal alignment. Vertebral body heights are maintained. Degenerative disc disease at C5-C6. Otherwise, intervertebral disc spaces are maintained. Moderate atlantodental spondylosis. The atlantoaxial and atlantooccipital articulations are intact. No prevertebral soft tissue swelling. There is no cervical lymphadenopathy. The visualized thyroid gland is unremarkable. The visualized lung apices are clear. Gaseous distention of the proximal visualized esophagus. CT/CT cervical spine wo IV con IMPRESSION: 1. No acute intracranial pathology. 2. Subgaleal hematoma along the right occipital scalp without underlying calvarial fracture. 3. No acute osseous abnormality within the cervical spine.
[2023-10-22 21:47] VITALS: BP 120/79; BP 124/98; PULSE 82; PULSE 90; RESP 18; TEMP 37.6; O2SAT 94; O2SAT 96; BMI 35.4
[2023-10-22 23:07] LABS: Hematocrit 37.6 % (37.0-47.0); Hemoglobin 12.3 g/dl (12.0-16.0); Mean Corpuscular HGB Conc 32.7 g/dl (31.0-35.0); Mean Corpuscular Hemoglobin 29.9 pg (27.0-33.0); Mean Corpuscular Volume 91.3 fL (80.0-98.0); Mean Platelet Volume 10.5 fL (9.4-12.3); Platelet Count 138 X10*3/uL (160-400); Red Blood Count 4.12 X10*6/uL (4.20-5.50); Red Cell Distribution Width 14.1 % (11.0-16.0); White Blood Count 3.3 X10*3/uL (4.8-10.8)
--- NOTE | 2023-10-22 23:09 | ED_ITS ---
HPI - Fall General Chief Complaint: Fall Stated Complaint: Fall w/ head strike, +thinners, collared Time Seen by Provider: 10/22/23 22:38 Source: patient Mode of arrival: EMS Limitations: no limitations History of Present Illness HPI Narrative: Patient's history of mitral valve replacement status post endocarditis, history of atrial flutter on metoprolol, history of CVA with residual left-sided weak and slurred on Coumadin apparently was smoking cigarette holding door open stronger on quick felt dizzy lost balance and fell over the railing hitting her head to the concrete no loss of consciousness got lump on the back of the head and pain in the right knee able to ambulate no chest pain no history of frequent falls denies any palpitation or chest pain Related Data Home Medications ?Medication ?Instructions ?Recorded ?Confirmed alprazolam 1 mg tablet 1 tab PO TID PRN Anxiety 03/21/21 09/05/21 atorvastatin 40 mg tablet 1 tab PO BEDTIME 03/21/21 09/05/21 levetiracetam 750 mg tablet 1 tab PO BID 03/21/21 09/05/21 metoprolol succinate 50 mg 1 tab PO DAILY 03/21/21 09/05/21 tablet,extended release 24 hr mirtazapine 15 mg tablet 1 tab PO BEDTIME 03/21/21 09/05/21 sertraline 100 mg tablet 1 tab PO DAILY 03/21/21 09/05/21 venlafaxine 75 mg capsule,extended 1 cap PO DAILY 03/21/21 09/05/21 release 24 hr warfarin 10 mg tablet 1 tab PO Q OTHER DAY 03/21/21 09/05/21 methadone 5 mg tablet 104 mg PO DAILY 03/22/21 09/05/21 sennosides 8.6 mg tablet (senna) 2 cap PO BEDTIME PRN constipation 09/05/21 09/05/21 warfarin 4 mg tablet 1 tab PO Q OTHER DAY 09/05/21 09/05/21 warfarin 5 mg tablet 1 tab PO Q OTHER DAY 09/05/21 09/05/21 Previous Rx's ?Medication ?Instructions ?Recorded nicotine 14 mg/24 hr daily 14 mg transdermal DAILY #30 ea 03/23/21 transdermal patch Allergies Allergy/AdvReac Type Severity Reaction Status Date / Time No Known Allergies Allergy Verified 10/22/23 21:49 Review of Systems 2 Review of Systems: Yes all other systems are reviewed and are negative [facility] Past Medical History Medical History Epileptic seizure Endocarditis Opioid use disorder High cholesterol Anxiety Depression Seizure CVA (cerebral vascular accident) Surgical History Mitral valve replaced Social History Social History Household Members: Unknown / Unable to assess Housing: Unknown / Unable to assess Do you presently have visiting nurse or other home services: No (unknown) Unable to assess alcohol history related to: Unknown Alcohol intake: former Patient Tobacco Use Status: Tobacco use Unknown Smoked in Last 30 Days: Yes Use of substances other than those prescribed or required for medical reasons: No Substance Use Type: Heroin Advance Directives: No Advance Directives Information Provided: No Do you have a plan to hurt others: No Plan Patient : No service: No Current occupational status: unemployed Physical Exam 2 Vital Signs: Vital Signs: Last Vital Signs Temp 97.6 F 10/23/23 00:00 Pulse 62 10/23/23 00:00 Resp 20 10/23/23 00:00 BP 104/66 10/23/23 00:00 Pulse Ox 96 10/23/23 00:00 O2 Del Method Room Air 10/23/23 00:00 BMI result Body Mass Index 35.4 Appearance: Alert. Oriented X3. No acute distress. Eyes: PERRLA, No Nystagmus ENT: Pharynx normal. Oral Mucosa moist Neck: Normal inspection. Neck supple. CVS: Normal heart rate and rhythm. Pulses normal. Mitral valve click+ Respiratory: No respiratory distress. Equal air entry bilateral, no wheezing/rales/rhonchi Abdomen: Soft and nontender. Bowel sounds are present, no mass palpable, no CVA tenderness Skin: Skin warm and dry. Normal skin color. Normal skin turgor. Extremities: No lower extremity edema. No calf tenderness Neuro: Oriented X 3. Left-sided residual deficits with slurred speech No sensory deficit.No cerebellar signs , cranial nerves II-XII intact Medications Administered Discontinued Medications Generic Name Dose Route Start Last Admin Trade Name Freq PRN Reason Stop Dose Admin Acetaminophen 650 mg 10/23/23 00:18 10/23/23 00:27 Acetaminophen 325 Mg Tablet PO 10/23/23 00:19 650 mg ONCE ONE Administration Medical Decision Making Medical Decision Making [facility] Narrative: Patient is status post mechanical fall with history of atrial flutter past seen supervisor tumbling and rolling in plenty of echo done denied any palpitation CT scan of the head and C-spine negative x-ray of the right knee and left forearm negative for fracture patient able to ambulate in the ED. Patient will be following with supervisor tumbling and rolling Differential Diagnosis Differential Diagnoses: The differential diagnosis associated with the presentation includes Mechanical fall/atrial flutter/bradycardia/near-syncope Lab Data [facility] Lab Attestation statement: I reviewed the patient's lab results. 10/22/23 23:02 10/22/23 23:02 Labs: Lab Results 10/22/23 10/22/23 Range/Units 23:01 23:02 WBC 3.3 L (4.8-10.8) X10*3/uL RBC 4.12 L (4.20-5.50) X10*6/uL Hgb 12.3 (12.0-16.0) g/dl Hct 37.6 (37.0-47.0) % MCV 91.3 (80.0-98.0) fL MCH 29.9 (27.0-33.0) pg MCHC 32.7 (31.0-35.0) g/dl RDW 14.1 (11.0-16.0) % Plt Count 138 L D (160-400) X10*3/uL MPV 10.5 (9.4-12.3) fL Absolute Nucleated RBC 0.000 (0.0-0.012) X10*3/uL Nucleated RBC % (auto) 0.0 (0.0-0.2) /100WBC PT 57.2 H (11.1-13.3) SEC INR 4.7 H (0.9-1.1) Sodium 141 (135-145) mmol/L Potassium 3.6 (3.3-5.1) mmol/L Chloride 107 (96-108) mmol/L Carbon Dioxide 24 (22-29) mmol/L Anion Gap 14 (12-20) BUN 12 (9-16) mg/dL Creatinine 0.79 (0.5-1.4) mg/dL Estim Creat Clear Calc 78.6 Estimated GFR > 60 Random Glucose 91 (60-115) mg/dL Calcium 9.4 (8.4-10.2) mg/dL Magnesium 1.9 (1.6-2.6) mg/dL Total Bilirubin 0.3 (0.0-1.0) mg/dL AST 32 H (5-31) U/L ALT 32 H (0-31) U/L Alkaline Phosphatase 122 H (39-117) U/L Troponin I High Sens < 2.7 (<3.5-17.0) ng/L Total Protein 7.2 (6.5-8.0) g/dL Albumin 3.8 (3.5-5.0) g/dL Independent Interpretation I performed an independent interpretation of an: EKG and CT Scan Interpretation: Atrial flutter with ventricular rate of 66 beats per minute incomplete right bundle-branch block no acute ischemia Radiology Impression Discussion of test interpretation with radiology: I have reviewed the radiologist's reading. Discharge Plan Discharge Clinical Impression: Fall (on) (from) other stairs and steps, initial encounter, Atrial flutter Patient Disposition: Home, Self-Care Instructions: Atrial Flutter (ED), Fall Prevention for Older Adults (ED) Additional Instructions: Care and cautions as advised Follow-up with your supervisor tumbling and rolling as planned Prescriptions: No Action atorvastatin 40 mg tablet 1 tab PO BEDTIME venlafaxine 75 mg capsule,extended release 24hr 1 cap PO DAILY alprazolam 1 mg tablet 1 tab PO TID PRN (Reason: Anxiety) metoprolol succinate 50 mg tablet extended release 24 hr 1 tab PO DAILY warfarin 10 mg tablet 1 tab PO Q OTHER DAY sertraline 100 mg tablet 1 tab PO DAILY levetiracetam 750 mg tablet 1 tab PO BID mirtazapine 15 mg tablet 1 tab PO BEDTIME methadone 5 mg Tablet 104 mg PO DAILY nicotine 14 mg/24 hr Patch 24 Hour 14 mg transdermal DAILY Qty: 30 0RF sennosides [senna] 8.6 mg tablet 2 cap PO BEDTIME PRN (Reason: constipation) warfarin 4 mg tablet 1 tab PO Q OTHER DAY Rx Instructions: with 5mg tablet for TDD 9mg every other day warfarin 5 mg tablet 1 tab PO Q OTHER DAY Rx Instructions: with 4mg tablet for TDD of 9mg QOD Print Language: Belgian
[2023-10-22 23:12] LABS: INTERNATIONAL NORM RATIO 4.7 (0.9-1.1); Prothrombin Time 57.2 SEC (11.1-13.3)
[2023-10-22 23:20] LABS: Alanine Aminotransferase 32 U/L (0-31); Albumin Level 3.8 g/dL (3.5-5.0); Alkaline Phosphatase 122 U/L (39-117); Anion Gap 14 (12-20); Aspartate Amino Transferase 32 U/L (5-31); Bilirubin Total 0.3 mg/dL (0.0-1.0); Blood Urea Nitrogen 12 mg/dL (9-16); Calcium 9.4 mg/dL (8.4-10.2); Carbon Dioxide 24 mmol/L (22-29); Chloride 107 mmol/L (96-108); Creatinine Clr Calc Pharmacy 78.6; Estimated Glomerular Filt Rate > 60; Glucose Random 91 mg/dL (60-115); Magnesium 1.9 mg/dL (1.6-2.6); Potassium 3.6 mmol/L (3.3-5.1); Sodium 141 mmol/L (135-145); Total Protein 7.2 g/dL (6.5-8.0)
--- NOTE | 2023-10-22 23:25 | MHC.EDTECH ---
Assumed care at 23:10
[2023-10-22 23:28] LABS: Troponin-I High Sensitivity < 2.7 ng/L (<3.5-17.0)
--- NOTE | 2023-10-22 23:30 | ECG_ITS ---
Test Reason : FALL Blood Pressure : / mmHG Vent. Rate : 066 BPM Atrial Rate : 066 BPM P-R Int : 336 ms QRS Dur : 106 ms QT Int : 446 ms P-R-T Axes : 080 007 001 degrees QTc Int : 467 ms Atrial flutter with variable block Incomplete right bundle branch block Borderline ECG When compared with ECG of 22-OCT-2023 22:02, Atrial flutter present now Referred By: Howard Kerr Electronically Signed By:Zaheer Smith
[2023-10-23] VITALS: BP 104/66; PULSE 62; RESP 20; TEMP 36.4; O2SAT 96
[2023-10-23] MEDS: Acetaminophen 325 MG TABLET 650 MG PO (00:27)
--- NOTE | 2023-10-23 00:30 | PC.NURSE ---
pt medicated per mar, tolerated well with water.
== END 2023-10-23 08:53 | disposition home or self-care (01) ==
PROVIDERS: Emergency Provider Internal Medicine
DX: Z04.3 Encounter for examination and observation following other accident (principal); M25.561 Pain in right knee; I48.92 Unspecified atrial flutter; I69.354 Hemiplegia and hemiparesis following cerebral infarction affecting left non-dominant side; Z79.01 Long term (current) use of anticoagulants; Z79.899 Other long term (current) drug therapy; Z91.81 History of falling; Z95.2 Presence of prosthetic heart valve
CPT/HCPCS: 36415; 70450; 72125; 73090; 73560; 80053; 83735; 84484; 85027; 85610; 93005; 99284

== ENCOUNTER → 2023-10-22 22:02 | Outpatient (BNV) | payer MEDICAID, SELFPAY | PROVIDERS: Emergency Provider Internal Medicine; Visit Provider Internal Medicine Cardiovascular Disease | DX: I45.10 Unspecified right bundle-branch block (principal) | CPT/HCPCS: 93010 ==

== ENCOUNTER 2024-03-04 13:19 | Outpatient (REF) | payer MEDICAID, SELFPAY ==
--- NOTE | 2024-04-10 13:36 | MHC.AU.HA3 ---
Hearing Instrument Follow-Up- Binaural Date of Visit: 03/05/24 Extension Worker Used: Right Ear: Make, Model, Color, Serial Number: Sol[employer]ario RAINEY CROS REBECA-R SN: [id number] Color: Champagne J2Ee Consultant Repair Warranty: 05/23/2025 J2Ee Consultant Loss and Damage Warranty: 05/23/2025 [facility] Service Plan: 03/31/2023 Battery Size: Rechargeable Fruit Or Nut Farm Worker/Slim Tube: #1 Earmold/Dome/CShell/SlimTip:AP Canal Lock Earmold SN: [id number] Cristin: 01/16/2023 BROKEN/DISCARDED: AP canal lock earmold #[id number] warranty 05/23/2022 Type of Wax Guard: Dispensed By: [facility] Date of Fittin03/31/2022 Left Ear: Make, Model, Color, Serial Number: Sol[employer]ario RAINEY REBECA-R SN: [id number] Color: Champagne J2Ee Consultant Repair Warranty: 05/23/2025 J2Ee Consultant Loss and Damage Warranty: 05/23/2025 [facility] Service Plan: 03/30/2023 Battery Size: Rechargeable Fruit Or Nut Farm Worker/Slim Tube: #1 120/60 Earmold/Dome/CShell/SlimTip: AP canal lock #[id number] warranty 03/23/2024 Type of Wax Guard: HearClear Dispensed By: [facility] Date of Fittin03/31/2022 Follow-Up Summary: HAs d/o, RHA flashing red in vegetable farm worker, L intermittent charging. L EM occluded with wax against speaker. Sent aids and vegetable farm worker to Sol[employer]ario for repair, RIGHT EARMOLD IS IN REPAIR DRAWER as it is out of warranty with no issues. Pt can pickler helper upon repair. Recommendations: Recommendations: Patient will be contacted when materials have arrived. Diagnosis Code(s): Primary Diagnosis: H90.3 Bilateral Sensorineural Hearing Loss Signature: Provider: Iman Lennon, [facility]
== END 2024-03-04 13:20 | disposition home or self-care (01) ==
LOC: HO.HAP 13:19
DX: Z13.89 Encounter for screening for other disorder (principal)

== ENCOUNTER 2024-04-09 15:18 | Outpatient (REF) | payer MEDICAID, SELFPAY | END 2024-04-09 15:19 | disposition home or self-care (01) | LOC: HO.HAP 15:18 | PROVIDERS: Visit Provider Family Medicine | DX: Z46.1 Encounter for fitting and adjustment of hearing aid (principal); H90.3 Sensorineural hearing loss, bilateral | CPT/HCPCS: 92593 ==

== ENCOUNTER 2024-04-12 10:10 | Outpatient (REF) | payer MEDICAID, SELFPAY ==
--- NOTE | 2024-04-12 12:18 | MHC.AU.HA3 ---
Hearing Instrument Follow-Up- Binaural Date of Visit: 04/12/24 Right Ear: Magdi, Model, Color, Serial Number: Solitario Healyv AI CROS REBECA-R SN: [id number] Color: Champagne Vascular Tech Repair Warranty: 05/23/2025 Vascular Tech Loss and Damage Warranty: 05/23/2025 [facility] Service Plan: 03/31/2023 Battery Size: Rechargeable Nurse Administrator/Slim Tube: #1 Earmold/Dome/CShell/SlimTip:AP Canal Lock Earmold SN: [id number] Cristin: 01/16/2023 BROKEN/DISCARDED: AP canal lock earmold #[id number] warranty 05/23/2022 Type of Wax Guard: Dispensed By: [facility] Date of Fittin03/31/2022 Left Ear: Magdi, Model, Color, Serial Number: Solitario Healyv AI REBECA-R SN: [id number] Color: Champagne Vascular Tech Repair Warranty: 05/23/2025 Vascular Tech Loss and Damage Warranty: 05/23/2025 [facility] Service Plan: 03/30/2023 Battery Size: Rechargeable Nurse Administrator/Slim Tube: #1 120/60 Earmold/Dome/CShell/SlimTip: AP canal lock #[id number] warranty 03/23/2024 Type of Wax Guard: HearClear Dispensed By: [facility] Date of Fittin03/31/2022 Follow-Up Summary: Here with daughter today. Ariana recently picked up repaired hearing aid/ CROS. Here today due to connection problems with phone. Got a new phone, cannot pair aids. Paired aid in phone settings and in liana. All working. Ariana received a call and heard through the hearing aid. Recommendations: Recommendations: Hearing instrument follow-up or maintenance as needed. Diagnosis Code(s): Primary Diagnosis: H90.3 Bilateral Sensorineural Hearing Loss Signature: Provider: Elliott Swift, CCC-A
== END 2024-04-12 10:11 | disposition home or self-care (01) ==
LOC: HO.HAP 10:10
PROVIDERS: Visit Provider Family Medicine
DX: Z13.89 Encounter for screening for other disorder (principal)

== ENCOUNTER 2024-07-31 15:35 | Emergency (ER) | payer MEDICAID, SELFPAY ==
--- NOTE | ~2024-07-31 | CT_ITS ---
CLINICAL HISTORY: fall, on warfarin, head injury, altered MS CT head without contrast Comparison: CT/REG/SR - CT HEAD/BRAIN WO IV CON - 10/22/23 22:22 EDT Findings: No intra-axial mass, midline shift, hydrocephalus, or acute hemorrhage. Moderate-sized old right MCA distribution infarct with encephalomalacia and surrounding gliosis. The visualized paranasal sinuses and mastoid air cells are normal. The orbits are within normal limits. No skull fracture. IMPRESSION: 1. No acute intracranial findings. 2. Moderate-sized old right MCA distribution infarct. This document has been electronically signed by: Flash Mcgraw MD on 07/31/2024 18:17:36
--- NOTE | ~2024-07-31 | CT_ITS ---
CLINICAL HISTORY: neck pain after head injury CT cervical spine without contrast Comparison: 10/22/2023 Findings: No acute fracture or acute malalignment. Inferior endplate cortical disruption along the anterior aspect of C5 is chronic and appears similar on the 10/22/2023 study. Mild multilevel degenerative changes with disc space narrowing throughout the cervical spine, most pronounced at C5-C6 with endplate sclerosis and marginal osteophyte formation. The facet joints are normally imbricated. No prevertebral soft tissue edema. Lung apicies demonstrate no acute process. Impression: Multilevel degenerative changes without evidence of acute fracture or acute malalignment. This document has been electronically signed by: Flash Mcgraw MD on 07/31/2024 18:21:40
[2024-07-31 15:57] VITALS: BP 138/78; BP 96/58; PULSE 85; PULSE 86; RESP 16; TEMP 36.4; O2SAT 97; O2SAT 99; BMI 25.3
[2024-07-31 16:02] VITALS: BP 96/58; PULSE 85; RESP 16; TEMP 36.4; O2SAT 99
--- NOTE | 2024-07-31 16:05 | ED_ITS ---
HPI - General Adult General Chief complaint: Fall Stated complaint: multiple falls, on thinners, + headstrike Time Seen by Provider: 07/31/24 16:04 History of Present Illness ED Provider: Moe JAVED narrative: The patient is a 59-year-old woman with a history of a stroke and a seizure disorder. She is on warfarin. She lives at home. Her daughter is her air cargo ground crew supervisor. The daughter says that she found the patient on the floor at around 13:00 today. It was not clear what had happened. The daughter helped the patient into her bed. Later the daughter found the patient on the floor again and thought that there was some bruising in the region of the right temporal area. At that point the daughter called an ambulance and the patient was brought to the hospital. There have been no fever, sweats, chills. The patient had a very subdued and quiet demeanor and spoke very little. The daughter said that the patient has demeanor was at baseline. The daughter was most concerned about a possible Head injury because she thought there might be bruising in the right temporal fossa. Patient has a history of a right MCA stroke with residual left-sided weakness. She also has a history of endocarditis and a mitral valve replacement. She has a history of atrial fibrillation. Related Data Home Medications ?Medication ?Instructions ?Recorded ?Confirmed alprazolam 1 mg tablet 1 tab PO TID PRN Anxiety 03/21/21 09/05/21 atorvastatin 40 mg tablet 1 tab PO BEDTIME 03/21/21 09/05/21 levetiracetam 750 mg tablet 1 tab PO BID 03/21/21 09/05/21 metoprolol succinate 50 mg 1 tab PO DAILY 03/21/21 09/05/21 tablet,extended release 24 hr mirtazapine 15 mg tablet 1 tab PO BEDTIME 03/21/21 09/05/21 sertraline 100 mg tablet 1 tab PO DAILY 03/21/21 09/05/21 venlafaxine 75 mg capsule,extended 1 cap PO DAILY 03/21/21 09/05/21 release 24 hr warfarin 10 mg tablet 1 tab PO Q OTHER DAY 03/21/21 09/05/21 methadone 5 mg tablet 104 mg PO DAILY 03/22/21 09/05/21 sennosides 8.6 mg tablet (senna) 2 cap PO BEDTIME PRN constipation 09/05/21 09/05/21 warfarin 4 mg tablet 1 tab PO Q OTHER DAY 09/05/21 09/05/21 warfarin 5 mg tablet 1 tab PO Q OTHER DAY 09/05/21 09/05/21 Previous Rx's ?Medication ?Instructions ?Recorded nicotine 14 mg/24 hr daily 14 mg transdermal DAILY #30 ea 03/23/21 transdermal patch Allergies Allergy/AdvReac Type Severity Reaction Status Date / Time No Known Allergies Allergy Verified 07/31/24 15:59 [facility] Past Medical History Medical History Epileptic seizure Endocarditis Opioid use disorder High cholesterol Anxiety Depression Seizure CVA (cerebral vascular accident) Surgical History Mitral valve replaced Social History Social History Household Members: Unknown / Unable to assess Housing: Unknown / Unable to assess Do you presently have visiting nurse or other home services: No (unknown) Unable to assess alcohol history related to: Unknown Alcohol intake: former Patient Tobacco Use Status: Tobacco use Unknown Substance Use Type: Heroin service: No Current occupational status: unemployed Physical Exam ED Vital Signs: Vital Signs - 24 hr 07/31/24 15:57 07/31/24 16:02 07/31/24 19:16 Temperature 97.6 F 97.6 F 97.5 F Pulse Rate 85 85 76 Respiratory Rate 16 16 16 Blood Pressure 96/58 L 96/58 L 92/48 L Pulse Oximetry 99 99 100 Oxygen Delivery Method Room Air Room Air 07/31/24 20:43 Temperature 97.5 F Pulse Rate 76 Respiratory Rate 16 Blood Pressure 95/60 Pulse Oximetry 100 Oxygen Delivery Method Room Air BMI result Body Mass Index 25.3 Const Other: The patient is a slim, very chronically ill-appearing 59-year-old. She looks much older than her age. She was awake but seemed preoccupied and did not speak much at all. She did not seem in pain or respiratory distress however. HENMT Other: I thought there might be some left-sided facial weakness which I believe is chronic. Mucous membranes are moist. I did not appreciate any definite signs of trauma in the region of the right temporal fossa. Eyes Other: Pupils are round equal, extraocular movements seem intact, conjunctivae are clear Neck Other: the patient seemed to have some possible posterior midline C-spine tenderness. Resp Effort & Inspection: normal respiratory effort Auscultation: clear to auscultation bilaterally Cardio Other: Patient has an irregular rate and rhythm. No definite murmur. GI Other: Abdomen is soft nontender Skin Other: skin is pale and dry Neuro Other: patient is awake but seems to have a subdued demeanor. Her speech is somewhat slurred which is apparently baseline. She has some mild left-sided weakness which is apparently chronic. Extrem Other: No injuries to the extremities. Procedures Procedure Narrative Procedure Narrative: Day ultrasound-guided IV placement 20 gauge 2-1/2 inch ultrasound-guided IV placed in left upper extremity. Adequate blood return, flushes well secured with Tegaderm. Performed by Magi Geller PA-C Medical Decision Making Medical Decision Making MDM Narrative: the patient is a chronically disabled 59-year-old on warfarin who has a history of atrial fibrillation / flutter and a mitral valve replacement. Her daughter is her primary air cargo ground crew supervisor. The daughter was concerned about the possibility of head injury. The daughter thought there might be some bruising in the right temporal fossa. I did not really appreciate the presence of bruising. The patient evaluation is complicated by her previous deficits and she also takes a number of fairly sedating medications. Head CT shows no acute findings. a cervicalspine CT shows no acute findings. EKG shows atrial flutter. INR is therapeutic at 2.7. Other labs are unremarkable. The patient was observed for a long period of time. The daughter feels the patient is at her baseline and is comfortable taking her home. Lab Data 07/31/24 18:53 07/31/24 18:53 Labs: Lab Results 07/31/24 07/31/24 Range/Units 18:24 18:53 WBC 4.9 (4.8-10.8) X10*3/uL RBC 4.46 (4.20-5.50) X10*6/uL Hgb 12.7 (12.0-16.0) g/dl Hct 37.6 (37.0-47.0) % MCV 84.3 (80.0-98.0) fL MCH 28.5 (27.0-33.0) pg MCHC 33.8 (31.0-35.0) g/dl RDW 13.9 (11.0-16.0) % Plt Count 151 L (160-400) X10*3/uL MPV 10.0 (9.4-12.3) fL Immature Gran % (Auto) 0.2 (0.0-0.4) % Neut % (Auto) 68.3 (45-73) % Lymph % (Auto) 17.4 L (20-40) % Licking % (Auto) 12.9 H (2-11) % Eos % (Auto) 1.0 (0-4) % Baso % (Auto) 0.2 (0-2) % Lymph # (Auto) 0.9 L (1.2-4.9) X10*3/uL Licking # (Auto) 0.6 (0.1-1.2) X10*3/uL Eos # (Auto) 0.1 (0.0-0.4) X10*3/uL Baso # (Auto) 0.0 (0.0-0.2) X10*3/uL Abs Immat Gran (auto) 0.01 (0.00-0.03) X10*3/uL Absolute Neuts (auto) 3.3 (2.0-8.3) x10*3/uL Absolute Nucleated RBC 0.000 (0.0-0.012) X10*3/uL Nucleated RBC % (auto) 0.0 (0.0-0.2) /100WBC PT 32.0 H (10.9-12.4) SEC INR 2.7 H D (0.9-1.1) Sodium 139 (135-145) mmol/L Potassium 3.9 (3.3-5.1) mmol/L Chloride 105 (96-108) mmol/L Carbon Dioxide 26 (22-29) mmol/L Anion Gap 12 (12-20) BUN 22 H (9-16) mg/dL Creatinine 0.82 (0.5-1.4) mg/dL Estim Creat Clear Calc 71.1 Estimated GFR > 60 Random Glucose 74 (60-115) mg/dL Calcium 8.9 (8.4-10.2) mg/dL Magnesium 2.0 (1.6-2.6) mg/dL Total Bilirubin 0.6 (0.0-1.0) mg/dL Direct Bilirubin 0.2 (0.0-0.5) mg/dL AST 64 H (5-31) U/L ALT 20 (0-31) U/L Alkaline Phosphatase 96 (39-117) U/L Troponin I High Sens 3.3 (<3.5-17.0) ng/L C-Reactive Protein 1.20 H (< or = 0.50) mg/dL Total Protein 7.6 (6.5-8.0) g/dL Albumin 4.0 (3.5-5.0) g/dL Ethyl Alcohol < 10 mg/dL Influenza Type A (PCR) NEGATIVE (Negative) Influenza Type B (PCR) NEGATIVE (Negative) RSV RNA Qual (PCR) NEGATIVE (Negative) SARS-CoV-2 RNA (RT-PCR) NEGATIVE (Negative) Discharge Plan Discharge Clinical Impression: Falls Patient Disposition: Home, Self-Care Additional Instructions: Her testing in the emergency room today seems reassuring. Please continue her regular medications. Please have her follow up with the regular doctor soon. Return to the emergency room if significantly worse. Prescriptions: No Action atorvastatin 40 mg tablet 1 tab PO BEDTIME venlafaxine 75 mg capsule,extended release 24hr 1 cap PO DAILY alprazolam 1 mg tablet 1 tab PO TID PRN (Reason: Anxiety) metoprolol succinate 50 mg tablet extended release 24 hr 1 tab PO DAILY warfarin 10 mg tablet 1 tab PO Q OTHER DAY sertraline 100 mg tablet 1 tab PO DAILY levetiracetam 750 mg tablet 1 tab PO BID mirtazapine 15 mg tablet 1 tab PO BEDTIME methadone 5 mg Tablet 104 mg PO DAILY nicotine 14 mg/24 hr Patch 24 Hour 14 mg transdermal DAILY Qty: 30 0RF sennosides [senna] 8.6 mg tablet 2 cap PO BEDTIME PRN (Reason: constipation) warfarin 4 mg tablet 1 tab PO Q OTHER DAY Rx Instructions: with 5mg tablet for TDD 9mg every other day warfarin 5 mg tablet 1 tab PO Q OTHER DAY Rx Instructions: with 4mg tablet for TDD of 9mg QOD Referrals: Kary Don PA [Physician Granulator] - (falls) Interventions: ED Discharge Assessment Last Done: 07/31/24 20:43 Discharge Date/Time: 07/31/24 20:44 Print Language: Kinyarwanda
--- NOTE | 2024-07-31 16:11 | ECG_ITS ---
Test Reason : AMS Blood Pressure : */* mmHG Vent. Rate : 79 BPM Atrial Rate : 220 BPM P-R Int : * ms QRS Dur : 100 ms QT Int : 462 ms P-R-T Axes : 60 0 -17 degrees QTcB Int : 529 ms Atrial flutter with variable A-V block Nonspecific ST and T wave abnormality Prolonged QT Abnormal ECG When compared with ECG of 22-Oct-2023 23:44, Incomplete right bundle branch block is no longer Present QT has lengthened Referred By: Wild Rosa Electronically Signed By: EDUIN GOVEA MD
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
[2024-07-31 19:00] LABS: MANUAL DIFF FLAG NO
[2024-07-31 19:04] LABS: Basophils Percent Auto 0.2 % (0-2); Eosinophils Absolute Auto 0.1 X10*3/uL (0.0-0.4); Hematocrit 37.6 % (37.0-47.0); Hemoglobin 12.7 g/dl (12.0-16.0); Imm Gran Abs Auto 0.01 X10*3/uL (0.00-0.03); Imm Gran Pct Auto 0.2 % (0.0-0.4); Lymphocytes Absolute Auto 0.9 X10*3/uL (1.2-4.9); Lymphocytes Percent Auto 17.4 % (20-40); Mean Corpuscular HGB Conc 33.8 g/dl (31.0-35.0); Mean Corpuscular Hemoglobin 28.5 pg (27.0-33.0); Mean Corpuscular Volume 84.3 fL (80.0-98.0); Monocytes Absolute Auto 0.6 X10*3/uL (0.1-1.2); Monocytes Percent Auto 12.9 % (2-11); Neutrophils Absolute Auto 3.3 x10*3/uL (2.0-8.3); Neutrophils Percent Auto 68.3 % (45-73); Platelet Count 151 X10*3/uL (160-400); Red Blood Count 4.46 X10*6/uL (4.20-5.50); Red Cell Distribution Width 13.9 % (11.0-16.0); White Blood Count 4.9 X10*3/uL (4.8-10.8)
[2024-07-31 19:06] LABS: INTERNATIONAL NORM RATIO 2.7 (0.9-1.1)
[2024-07-31 19:13] LABS: Influenza A PCR NEGATIVE (Negative); Influenza B PCR NEGATIVE (Negative); Resp Syncy Virus RNA Qual PCR NEGATIVE (Negative); SARS COV2 PCR INHOUSE NEGATIVE (Negative)
[2024-07-31 19:16] VITALS: BP 92/48; PULSE 76; RESP 16; TEMP 36.4; O2SAT 100
[2024-07-31 19:18] LABS: Alanine Aminotransferase 20 U/L (0-31); Alkaline Phosphatase 96 U/L (39-117); Anion Gap 12 (12-20); Aspartate Amino Transferase 64 U/L (5-31); Bilirubin Direct 0.2 mg/dL (0.0-0.5); Bilirubin Total 0.6 mg/dL (0.0-1.0); Blood Urea Nitrogen 22 mg/dL (9-16); Calcium 8.9 mg/dL (8.4-10.2); Carbon Dioxide 26 mmol/L (22-29); Chloride 105 mmol/L (96-108); Creatinine Clr Calc Pharmacy 71.1; Estimated Glomerular Filt Rate > 60; Ethanol < 10 mg/dL; Glucose Random 74 mg/dL (60-115); Potassium 3.9 mmol/L (3.3-5.1); Sodium 139 mmol/L (135-145); Total Protein 7.6 g/dL (6.5-8.0)
--- NOTE | 2024-07-31 19:20 | PC.NURSE ---
MD aware of BP, no new orders received.
[2024-07-31 19:24] LABS: Troponin-I High Sensitivity 3.3 ng/L (<3.5-17.0)
[2024-07-31 20:43] VITALS: BP 95/60; PULSE 76; RESP 16; TEMP 36.4; O2SAT 100
[2024-08-04 00:48] LABS: Levetiracetam Keppra 9.4 mcg/mL (6.0-46.0)
== END 2024-07-31 20:44 | disposition home or self-care (01) ==
PROVIDERS: Emergency Provider Emergency Medicine
DX: S09.90XA Unspecified injury of head, initial encounter (principal); R41.82 Altered mental status, unspecified; I48.92 Unspecified atrial flutter; M54.2 Cervicalgia; R51.9 Headache, unspecified; W18.30XA Fall on same level, unspecified, initial encounter; Y93.9 Activity, unspecified; Y92.89 Other specified places as the place of occurrence of the external cause; Y99.8 Other external cause status; Z79.01 Long term (current) use of anticoagulants; Z79.899 Other long term (current) drug therapy; Z03.818 Encounter for observation for suspected exposure to other biological agents ruled out
CPT/HCPCS: 0241U; 36415; 70450; 72125; 80048; 80076; 80177; 80307; 83735; 84484; 85025; 85610; 86140; 93005; 99284

== ENCOUNTER → 2024-07-31 16:11 | Outpatient (BNV) | payer MEDICAID, SELFPAY | PROVIDERS: Emergency Provider Emergency Medicine; Visit Provider Internal Medicine Cardiovascular Disease | DX: I48.92 Unspecified atrial flutter (principal); R94.31 Abnormal electrocardiogram [ECG] [EKG]; R41.82 Altered mental status, unspecified | CPT/HCPCS: 93010 ==

== ENCOUNTER → 2024-07-31 16:12 | Outpatient (BNV) | payer MEDICAID, SELFPAY | PROVIDERS: Emergency Provider Emergency Medicine; Visit Provider Radiology Vascular & Interventional Radiology | DX: M50.30 Other cervical disc degeneration, unspecified cervical region (principal); S09.90XA Unspecified injury of head, initial encounter; W19.XXXA Unspecified fall, initial encounter | CPT/HCPCS: 70450; 72125 ==